=== PATIENT | female | born 1995 | race Caucasian/White ===

== ENCOUNTER 2016-08-26 05:00 | Emergency (ER) | payer OTHER ==
[2016-08-26 05:01] VITALS: BP 119/68; PULSE 78; RESP 18; TEMP 98; O2SAT 98
[2016-08-26] MEDS ORDERED: SODIUM CHLOR 0.9% 1000 ML INJ 1,000 ML IV SCH (05:24)
[2016-08-26] MEDS ORDERED: SODIUM CHLORIDE 0.9% FLUSH 10 ML FLUSH IV FLUSH PRN (05:30)
[2016-08-26] MEDS ORDERED: FAMOTIDINE 20 MG/2 ML VIAL IV PUSH ONE (05:30)
[2016-08-26] MEDS ORDERED: methylPREDNISolone SOD SUCC 125 MG/2 ML VIAL IVP ONE (05:30)
[2016-08-26] MEDS ORDERED: diphenhydrAMINE HCL 50 MG/ML VIAL IVP ONE (05:30)
[2016-08-26] MEDS ORDERED: FLUT1INH7 INH (05:48)
[2016-08-26] MEDS ORDERED: ATEN25TA PO (05:48)
[2016-08-26] MEDS ORDERED: LORA2TAB7 PO (05:48)
[2016-08-26] MEDS ORDERED: [UNRECOGNIZED DRUG - CODE] (05:48)
[2016-08-26] MEDS ORDERED: CLAR10TA2 (05:48)
[2016-08-26] MEDS ORDERED: ONFI10TA PO (05:48)
[2016-08-26] MEDS ORDERED: FERR325C (05:48)
[2016-08-26] MEDS ORDERED: CLON0.5T PO (05:48)
[2016-08-26] MEDS ORDERED: VIMP200T PO (05:48)
[2016-08-26] MEDS ORDERED: EPIN0.3A2 (05:48)
[2016-08-26] MEDS ORDERED: POTA-255 (05:48)
[2016-08-26] MEDS ORDERED: PRIL20TA2 (05:48)
[2016-08-26] MEDS ORDERED: ALBUAER3 INH (05:48)
[2016-08-26 05:53] VITALS: RESP 18; O2SAT 99
--- NOTE | 2016-08-26 06:04 | PD ---
HPI Chief Complaint: Allergic/Adverse Reaction Time Seen by Provider: 05:14 Travel History International Travel<30 days: No Contact w/Intl Traveler<30days: No Traveled to known affect area: No History of Present Illness HPI 21yo F with PMH of seizure disorder on clobazam and vimpat presents to the ED with c/o allergic reaction. Pt states she ate pumpkin seeds about 40 minutes prior to coming and then 30 minutes ago started feeling tingling in her throat and lips as well as hives. 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 States she felt a little better after the epinephrine. Denies any sob, lip or tongue swelling, nausea, vomiting, abdominal pain. Pt states she has chest pain and points to her entire chest but states she always has chest pain. State she thinks she also had seizure while lying in bed 2 hours ago and has history of intractable seizures. PFSH Past Medical History Asthma: Yes Diminished Hearing: No Medical other: Yes (EPILEPSY, CELIAC, HYPOKALEMIA,ANEMIA, POTS, LONG QT) ?: Unknown LMP: UNSURE Social History Alcohol Use: No Tobacco Use: No Substance Use: No Allergies-Medications (Allergen,Severity, Reaction): Coded Allergies: Dilantin (Verified Allergy, Severe, Seizures, 08/26/16) Keppra (Verified Allergy, Severe, Seizures, 08/26/16) Penicillin (Verified Allergy, Severe, Anaphylaxis, 08/26/16) Zofran (Verified Allergy, Severe, Hives, 08/26/16) Reported Meds & Prescriptions Reported Meds & Active Scripts Active Deltasone (Prednisone) 20 Mg Tab 20 Mg PO BID 3 Days Diphenhydramine (Diphenhydramine HCl) 25 Mg Cap 25 Mg PO Q6H PRN 3 Days Epipen 2-Hardik Inj (Epinephrine) 0.3 Mg/0.3 Ml Pfpen 0.3 Mg IM ONCE PRN Reported Epipen (Epinephrine) 0.3 Mg/0.3 Ml Auto.injct Claritin (Loratadine) 10 Mg Tab.rapdis Prilosec (Omeprazole Magnesium) 20 Mg Tab Potassium (Potassium Gluconate) 600 Mg Tablet Iron (Ferrous Sulfate) 325 Mg Capsule.er Breo Ellipta Inh (Fluticasone/Vilanterol) 200-25 Mcg/Act Inh 1 Puff INH DAILY Use daily at the same time. Proair Hfa 8.5 GM Inh (Albuterol Sulfate) 90 Mcg/Act Aer 1 Puff INH Q4H PRN 108 mcg/actuation Atenolol 25 Mg Tab 25 Mg PO BID Midazolam 10 mg/2 ml Syringe (Midazolam HCl/Pf) 10 Mg/2 Ml Syringe Lorazepam 2 Mg Tab 2 Mg PO HS PRN Clonazepam 0.5 Mg Tab 0.5 Mg PO BID Onfi (Clobazam) 10 Mg Tab 5 Mg PO BID Vimpat (Lacosamide) 200 Mg Tab 200 Mg PO BID Review of Systems Except as stated in HPI: all other systems reviewed are Neg Physical Exam Narrative GENERAL: 21yo F not in distress. SKIN: +Scattered urticaria throughout her body. HEAD: Atraumatic. Normocephalic. EYES: Pupils equal and round. No scleral icterus. No injection or drainage. ENT: Throat: Uvula midline. Patent airway. No edema in uvula, tongue or lips. NECK: Trachea midline. No JVD. CARDIOVASCULAR: Regular rate and rhythm. No murmur appreciated. RESPIRATORY: No accessory muscle use. Clear to auscultation. Breath sounds equal bilaterally. GASTROINTESTINAL: Abdomen soft, non-tender, nondistended. MUSCULOSKELETAL: No obvious deformities. No clubbing. No cyanosis. No edema. NEUROLOGICAL: Awake and alert. No obvious cranial nerve deficits. Motor grossly within normal limits. Normal speech. PSYCHIATRIC: Appropriate mood and affect; insight and judgment normal. Data Data Last Documented VS Vital Signs Date Time Temp Pulse Resp B/P Pulse Ox O2 Delivery O2 Flow Rate FiO2 08/26/16 09:11 79 20 118/68 99 08/26/16 05:01 98.0 Room Air Orders Basic Metabolic Panel (Bmp) (08/26/16 05:24) Complete Blood Count With Diff (08/26/16 05:24) Ecg Monitoring (08/26/16 05:24) Iv Access Insert/Monitor (08/26/16 05:24) Oximetry (08/26/16 05:24) Diphenhydramine Inj (Benadryl Inj) (08/26/16 05:30) Methylprednisolone So Succ Inj (Solumedr (08/26/16 05:30) Famotidine Inj (Pepcid Inj) (08/26/16 05:30) Sodium Chlor 0.9% 1000 Ml Inj (Ns 1000 M (08/26/16 05:24) Sodium Chloride 0.9% Flush (Ns Flush) (08/26/16 05:30) Electrocardiogram (08/26/16 ) Chest, Single Ap (08/26/16 ) Ckmb (Isoenzyme) Profile (08/26/16 05:24) Troponin I (08/26/16 05:24) Labs Laboratory Tests Test 08/26/16 05:30 White Blood Count 9.3 TH/MM3 Red Blood Count 4.17 MIL/MM3 Hemoglobin 11.4 GM/DL Hematocrit 34.8 % Mean Corpuscular Volume 83.4 FL Mean Corpuscular Hemoglobin 27.3 PG Mean Corpuscular Hemoglobin 32.8 % Concent Red Cell Distribution Width 13.6 % Platelet Count 210 TH/MM3 Mean Platelet Volume 9.3 FL Neutrophils (%) (Auto) 60.2 % Lymphocytes (%) (Auto) 27.1 % Monocytes (%) (Auto) 9.5 % Eosinophils (%) (Auto) 2.6 % Basophils (%) (Auto) 0.6 % Neutrophils # (Auto) 5.6 TH/MM3 Lymphocytes # (Auto) 2.5 TH/MM3 Monocytes # (Auto) 0.9 TH/MM3 Eosinophils # (Auto) 0.2 TH/MM3 Basophils # (Auto) 0.1 TH/MM3 CBC Comment DIFF FINAL Differential Comment Sodium Level 140 MEQ/L Potassium Level 3.7 MEQ/L Chloride Level 107 MEQ/L Carbon Dioxide Level 24.8 MEQ/L Anion Gap 8 MEQ/L Blood Urea Nitrogen 8 MG/DL Creatinine 0.60 MG/DL Estimat Glomerular Filtration 125 ML/MIN Rate Random Glucose 94 MG/DL Calcium Level 8.6 MG/DL Total Creatine Kinase 85 U/L Troponin I LESS THAN 0.02 NG/ML MDM Medical Decision Making Medical Screen Exam Complete: Yes Emergency Medical Condition: Yes Interpretation(s) EKG: NSR 75bpm. Normal axis. No ST segment elevation or depression. Differential Diagnosis Anaphylaxis vs. electrolyte abnormality vs. atypical chest pain Narrative Course 21yo F here for evaluation of possible anaphylaxis after eating pumpkin seeds today. Pt injected epi pen herself after feeling tingling in her throat and lips. States she feels a little better after. Pt is speaking in complete sentences and has no sob. Pt given NS IVF, diphenhydramine, methylprednisolone and pepcid. Pt states she also had a seizure today and has history of seizure. Labs reviewed, no leukocytosis. CXR showed normal examination. Troponin negative. Chest pain is very atypical. Pt reevaluated at bedside and states she feels a little better. Tingling in throat is minimal. Denies any sob. Will continue to monitor and observe in the ED. Sign out to next team to observe and discharge if no symptoms. Diagnosis Primary Impression: Anaphylaxis Qualified Code: T78.2XXA - Anaphylaxis, initial encounter Patient Instructions: General Instructions Departure Forms: Tests/Procedures Additional Instructions: Please follow up with your PMD in 1-2 days. Return to the ED if symptoms worsen. Med/Other Pt SpecificInfo: Prescription(s) given Scripts Prednisone (Deltasone)20 Mg Tab20 Mg PO BID 3 Days Ref 0 Prov:Aurelia Caal DO 08/26/16 Diphenhydramine 25 Mg Cap25 Mg PO Q6H PRN (ALLERGIES) 3 Days Ref 0 Prov:Aurelia Caal DO 08/26/16 Epinephrine Inj (Epipen 2-Hardik Inj)0.3 Mg/0.3 Ml Pfpen0.3 Mg IM ONCE PRN ( ALLERGIC REACTION) #1 PACK Ref 0 Prov:Aurelia Caal DO 08/26/16 Disposition: 01 DISCHARGE HOME Condition: Stable Aurelia Caal DO Aug 26, 2016 06:04
--- NOTE | 2016-08-26 06:09 | RADRPT ---
EXAM DATE/TIME: 08/26/2016 05:37 [facility] COMPARISON: No previous studies available for comparison. INDICATIONS : Chest pain. MEDICAL HISTORY : asthma, seizures SURGICAL HISTORY : None. ENCOUNTER: Initial ACUITY: 1 day PAIN SCORE: 4/10 LOCATION: Bilateral chest FINDINGS: A single view of the chest demonstrates the lungs to be symmetrically aerated without evidence of mas s, infiltrate or effusion. The cardiomediastinal contours are unremarkable. Osseous structures are intact. CONCLUSION: Normal examination. Mild rightward lower thoracic scoliosis. Oscar Thomas MD on August 26, 2016 at 6:07 Board Certified Radiologist. This report was verified electronically.
[2016-08-26 06:13] LABS: AUTOMATED NEUTROPHIL # 5.6 TH/MM3 (1.8-7.7); BASOPHIL # 0.1 TH/MM3 (0-0.2); BASOPHIL % 0.6 % (0.0-2.0); EOSINOPHIL # 0.2 TH/MM3 (0-0.4); EOSINOPHIL % 2.6 % (0.0-4.0); HEMATOCRIT 34.8 % (35.0-46.0); HEMO FLAGS DIFF FINAL; LYMPH % 27.1 % (9.0-44.0); LYMPHOCYTE # 2.5 TH/MM3 (1.0-4.8); MEAN CELL VOLUME 83.4 FL (80.0-100.0); MEAN CORPUSCULAR HEMOGLOBIN 27.3 PG (27.0-34.0); MEAN CORPUSCULAR HGB CONC 32.8 % (32.0-36.0); MONO % 9.5 % (0.0-8.0); NEUT % 60.2 % (16.0-70.0); PLATELET COUNT 210 TH/MM3 (150-450); RED BLOOD COUNT 4.17 MIL/MM3 (4.00-5.30); RED CELL DISTRIBUTION WIDTH 13.6 % (11.6-17.2); WHITE BLOOD COUNT 9.3 TH/MM3 (4.0-11.0)
[2016-08-26] MEDS ORDERED: PRED-503 PO (06:32)
[2016-08-26] MEDS ORDERED: DIPH25CA PO (06:32)
[2016-08-26] MEDS ORDERED: EPIP0.3I IM (06:32)
[2016-08-26 06:39] LABS: ANION GAP 8 MEQ/L (5-15); BICARBONATE 24.8 MEQ/L (21.0-32.0); BLOOD UREA NITROGEN 8 MG/DL (7-18); CHLORIDE 107 MEQ/L (98-107); GLOMERULAR FILTRATION RATE 125 ML/MIN (>89); POTASSIUM 3.7 MEQ/L (3.5-5.1); SODIUM (NA) 140 MEQ/L (136-145)
[2016-08-26 06:44] LABS: CREATINE KINASE 85 U/L (26-192)
--- NOTE | 2016-08-26 07:20 | PD ---
Data Data Last Documented VS Vital Signs Date Time Temp Pulse Resp B/P Pulse Ox O2 Delivery O2 Flow Rate FiO2 08/26/16 05:53 18 99 08/26/16 05:01 98.0 78 119/68 Room Air Orders Basic Metabolic Panel (Bmp) (08/26/16 05:24) Complete Blood Count With Diff (08/26/16 05:24) Ecg Monitoring (08/26/16 05:24) Iv Access Insert/Monitor (08/26/16 05:24) Oximetry (08/26/16 05:24) Diphenhydramine Inj (Benadryl Inj) (08/26/16 05:30) Methylprednisolone So Succ Inj (Solumedr (08/26/16 05:30) Famotidine Inj (Pepcid Inj) (08/26/16 05:30) Sodium Chlor 0.9% 1000 Ml Inj (Ns 1000 M (08/26/16 05:24) Sodium Chloride 0.9% Flush (Ns Flush) (08/26/16 05:30) Electrocardiogram (08/26/16 ) Chest, Single Ap (08/26/16 ) Ckmb (Isoenzyme) Profile (08/26/16 05:24) Troponin I (08/26/16 05:24) Labs Laboratory Tests Test 08/26/16 05:30 White Blood Count 9.3 TH/MM3 Red Blood Count 4.17 MIL/MM3 Hemoglobin 11.4 GM/DL Hematocrit 34.8 % Mean Corpuscular Volume 83.4 FL Mean Corpuscular Hemoglobin 27.3 PG Mean Corpuscular Hemoglobin 32.8 % Concent Red Cell Distribution Width 13.6 % Platelet Count 210 TH/MM3 Mean Platelet Volume 9.3 FL Neutrophils (%) (Auto) 60.2 % Lymphocytes (%) (Auto) 27.1 % Monocytes (%) (Auto) 9.5 % Eosinophils (%) (Auto) 2.6 % Basophils (%) (Auto) 0.6 % Neutrophils # (Auto) 5.6 TH/MM3 Lymphocytes # (Auto) 2.5 TH/MM3 Monocytes # (Auto) 0.9 TH/MM3 Eosinophils # (Auto) 0.2 TH/MM3 Basophils # (Auto) 0.1 TH/MM3 CBC Comment DIFF FINAL Differential Comment Sodium Level 140 MEQ/L Potassium Level 3.7 MEQ/L Chloride Level 107 MEQ/L Carbon Dioxide Level 24.8 MEQ/L Anion Gap 8 MEQ/L Blood Urea Nitrogen 8 MG/DL Creatinine 0.60 MG/DL Estimat Glomerular Filtration 125 ML/MIN Rate Random Glucose 94 MG/DL Calcium Level 8.6 MG/DL Total Creatine Kinase 85 U/L Troponin I LESS THAN 0.02 NG/ML MDM Supervised Visit with DIMAS: Yes Narrative Course 21-year-old woman with a history of intractable seizure disorder, seizures nearly daily, as well as anaphylaxis, presents to the emergency department after developing allergic reaction. She gave herself her EpiPen. She's been the ER about 2 hours now. She was signed out to me for repeat assessment. At this point she has no symptoms, no fullness in her throat, difficulty swallowing , breathing difficulties. She sleeping comfortably in her room. Patient will be observed for another 2 hours, and then discharge with prescriptions for steroids and antihistamines. Diagnosis Primary Impression: Anaphylaxis Qualified Code: T78.2XXA - Anaphylaxis, initial encounter Patient Instructions: General Instructions Departure Forms: Tests/Procedures Additional Instruction: Please follow up with your PMD in 1-2 days. Return to the ED if symptoms worsen. Scripts Prednisone (Deltasone)20 Mg Tab20 Mg PO BID 3 Days Ref 0 Prov:Aurelia Caal DO 08/26/16 Diphenhydramine 25 Mg Cap25 Mg PO Q6H PRN (ALLERGIES) 3 Days Ref 0 Prov:Aurelia Caal DO 08/26/16 Epinephrine Inj (Epipen 2-Hardik Inj)0.3 Mg/0.3 Ml Pfpen0.3 Mg IM ONCE PRN ( ALLERGIC REACTION) #1 PACK Ref 0 Prov:Aurelia Caal DO 08/26/16 Disposition: 01 DISCHARGE HOME Condition: Stable Oscar Salazar MD Aug 26, 2016 07:20
[2016-08-26 09:11] VITALS: BP 118/68
--- NOTE | 2016-08-26 14:00 | EKG ---
Date Performed: 08/26/2016 Time Performed: 05:58:19 PTAGE: 21 years EKG: Sinus rhythm NORMAL ECG NO PREVIOUS TRACING DOCTOR: Oniel Weiner Interpretating Date/Time 08/26/2016 13:56:30
== END 2016-08-26 09:37 | disposition home or self-care (01) ==
LOC: NEPC 05:00
DX: T78.2XXA Anaphylactic shock, unspecified, initial encounter (principal); G40.909 Epilepsy, unspecified, not intractable, without status epilepticus; J45.909 Unspecified asthma, uncomplicated; R07.9 Chest pain, unspecified; Z79.899 Other long term (current) drug therapy
CPT/HCPCS: 71010; 80048; 82550; 84484; 85025; 93005; 96374; 96375; 99285; J1200; J2930; J7030

== ENCOUNTER 2016-08-27 17:53 | Inpatient (IN) | payer OTHER ==
[~2016-08-27] VITALS: Ht 160 cm; Wt 54.4 kg
[~2016-08-27 17:53] MED LIST: ALBUAER3 INH; ATEN25TA PO; CLAR10TA2; CLON0.5T PO; DIPH25CA PO; EPIN0.3A2; EPIP0.3I IM; FERR325C; FLUT1INH7 INH; LORA2TAB7 PO; ONFI10TA PO; POTA-255; PRED-503 PO; PRIL20TA2; VIMP200T PO; [UNRECOGNIZED DRUG - CODE]
[2016-08-27 18:06] VITALS: BP 110/69; PULSE 101; RESP 14; TEMP 97.6
--- NOTE | 2016-08-27 18:09 | PD ---
HPI Chief Complaint: Possible Seizure Time Seen by Provider: 18:09 Travel History International Travel<30 days: No Contact w/Intl Traveler<30days: No Traveled to known affect area: No History of Present Illness HPI 21-year-old female presents emergency Department with history of seizure disorder and recent anaphylaxis, seen yesterday and treated with prednisone and Benadryl, and refill of EpiPen. [place]. Patient takes clonazepam and lorazepam for her seizures. Is reportedly allergic to Keppra and Dilantin. Patient recently moved here from [place] 3 days ago. Patient has no local primary care physician or neurologist at this time. Is reported by her significant other that they are attempting to get established in [place]. Patient is nonverbal upon arrival and appears to have seizure activity with eye rolling and generalized stiffness. Patient was brought in collared and on a board. Patient is cleared from the backboard with nursing staff upon arrival. IV is in place in the left arm. Patient is allergic to Dilantin, Keppra, penicillin, and Zofran. PFSH Past Medical History Asthma: Yes Diminished Hearing: No Social History Alcohol Use: No Tobacco Use: No Substance Use: No Allergies-Medications (Allergen,Severity, Reaction): Coded Allergies: Dilantin (Verified Allergy, Severe, Seizures, 08/26/16) Keppra (Verified Allergy, Severe, Seizures, 08/26/16) Penicillin (Verified Allergy, Severe, Anaphylaxis, 08/26/16) Zofran (Verified Allergy, Severe, Hives, 08/26/16) Reported Meds & Prescriptions Reported Meds & Active Scripts Active Deltasone (Prednisone) 20 Mg Tab 20 Mg PO BID 3 Days Diphenhydramine (Diphenhydramine HCl) 25 Mg Cap 25 Mg PO Q6H PRN 3 Days Epipen 2-Hardik Inj (Epinephrine) 0.3 Mg/0.3 Ml Pfpen 0.3 Mg IM ONCE PRN Reported Epipen (Epinephrine) 0.3 Mg/0.3 Ml Auto.injct Claritin (Loratadine) 10 Mg Tab.rapdis Prilosec (Omeprazole Magnesium) 20 Mg Tab Potassium (Potassium Gluconate) 600 Mg Tablet Iron (Ferrous Sulfate) 325 Mg Capsule.er Breo Ellipta Inh (Fluticasone/Vilanterol) 200-25 Mcg/Act Inh 1 Puff INH DAILY Use daily at the same time. Proair Hfa 8.5 GM Inh (Albuterol Sulfate) 90 Mcg/Act Aer 1 Puff INH Q4H PRN 108 mcg/actuation Atenolol 25 Mg Tab 25 Mg PO BID Midazolam 10 mg/2 ml Syringe (Midazolam HCl/Pf) 10 Mg/2 Ml Syringe Lorazepam 2 Mg Tab 2 Mg PO HS PRN Clonazepam 0.5 Mg Tab 0.5 Mg PO BID Onfi (Clobazam) 10 Mg Tab 5 Mg PO BID Vimpat (Lacosamide) 200 Mg Tab 200 Mg PO BID Review of Systems ROS Limitations: Unresponsive General / Constitutional: No: Fever Eyes: No: Visual changes HENT: No: Headaches Cardiovascular: No: Chest Pain or Discomfort Respiratory: No: Shortness of Breath Gastrointestinal: No: Abdominal Pain Genitourinary: No: Dysuria Musculoskeletal: No: Pain Skin: No Rash Neurologic: No: Weakness Psychiatric: No: Depression Endocrine: No: Polydipsia Hematologic/Lymphatic: No: Easy Bruising Physical Exam Exam Limitations: Clinical Condition Narrative GENERAL: Patient appears to have mild seizure-like activity with eye jerking, what appears to be shivering, and generalized muscle stiffness. SKIN: Warm and dry. HEAD: Atraumatic. Normocephalic. No signs of trauma. EYES: Pupils equal and round. No scleral icterus. No injection or drainage. ENT: No nasal bleeding or discharge. Mucous membranes pink and moist. NECK: Trachea midline. No JVD. CARDIOVASCULAR: Regular rate and rhythm. RESPIRATORY: No accessory muscle use. Clear to auscultation. Breath sounds equal bilaterally. GASTROINTESTINAL: Abdomen soft, non-tender, nondistended. Hepatic and splenic margins not palpable. MUSCULOSKELETAL: Extremities without clubbing, cyanosis, or edema. No obvious deformities. NEUROLOGICAL: Awake and alert. No obvious cranial nerve deficits. Motor grossly within normal limits. Five out of 5 muscle strength in the arms and legs. Data Data Last Documented VS Vital Signs Date Time Temp Pulse Resp B/P Pulse Ox O2 Delivery O2 Flow Rate FiO2 08/27/16 19:40 88 16 150/54 97 Room Air 08/27/16 18:06 97.6 Orders Lorazepam Inj (Ativan Inj) (08/27/16 18:15) Complete Blood Count With Diff (08/27/16 18:18) Comprehensive Metabolic Panel (08/27/16 18:18) Iv Access Insert/Monitor (08/27/16 18:18) Ecg Monitoring (08/27/16 18:18) Oximetry (08/27/16 18:18) Sodium Chloride 0.9% Flush (Ns Flush) (08/27/16 18:30) Lacosamide Inj (Vimpat Inj) (08/27/16 19:00) Lorazepam Inj (Ativan Inj) (08/27/16 19:00) Lorazepam Inj (Ativan Inj) (08/27/16 20:15) Potassium Chlor 20 Meq Premix (Kcl 20 Me (08/27/16 20:15) Ct Brain W/O Iv Contrast(Rout) (08/27/16 21:08) Ct Cerv Spine W/O Contrast (08/27/16 21:08) Creatine Kinase (Cpk) (08/27/16 21:08) Sodium Chlor 0.9% 1000 Ml Inj (Ns 1000 M (08/27/16 22:15) Admit Order (Ed Use Only) (08/27/16 22:39) Consult Neurology (08/27/16 ) Labs Laboratory Tests Test 08/27/16 18:20 White Blood Count 11.1 TH/MM3 Red Blood Count 4.09 MIL/MM3 Hemoglobin 11.3 GM/DL Hematocrit 34.1 % Mean Corpuscular Volume 83.6 FL Mean Corpuscular Hemoglobin 27.7 PG Mean Corpuscular Hemoglobin 33.2 % Concent Red Cell Distribution Width 14.3 % Platelet Count 192 TH/MM3 Mean Platelet Volume 9.9 FL Neutrophils (%) (Auto) 82.3 % Lymphocytes (%) (Auto) 9.6 % Monocytes (%) (Auto) 7.9 % Eosinophils (%) (Auto) 0.1 % Basophils (%) (Auto) 0.1 % Neutrophils # (Auto) 9.2 TH/MM3 Lymphocytes # (Auto) 1.1 TH/MM3 Monocytes # (Auto) 0.9 TH/MM3 Eosinophils # (Auto) 0.0 TH/MM3 Basophils # (Auto) 0.0 TH/MM3 CBC Comment DIFF FINAL Differential Comment Sodium Level 142 MEQ/L Potassium Level 3.0 MEQ/L Chloride Level 107 MEQ/L Carbon Dioxide Level 21.9 MEQ/L Anion Gap 13 MEQ/L Blood Urea Nitrogen 10 MG/DL Creatinine 0.71 MG/DL Estimat Glomerular Filtration 103 ML/MIN Rate Random Glucose 102 MG/DL Calcium Level 8.7 MG/DL Total Bilirubin 0.2 MG/DL Aspartate Amino Transf 17 U/L (AST/SGOT) Alanine Aminotransferase 18 U/L (ALT/SGPT) Alkaline Phosphatase 69 U/L Total Creatine Kinase 90 U/L Total Protein 6.9 GM/DL Albumin 3.9 GM/DL [facility] Medical Decision Making Medical Screen Exam Complete: Yes Emergency Medical Condition: Yes Medical Record Reviewed: Yes Differential Diagnosis Seizure. Altered mental status. Pseudoseizure. Hypokalemia. Electrolyte imbalance. Narrative Course Patient is medically stable upon arrival. Labs ordered including CBC, CMP. Patient is given lorazepam 1 mg IV. At 1900 hrs. patient is reassessed and found to be possibly continued to seize. Patient discussed and seen by Dr. Whittaker. Patient is given Vimpat 150mg IV in addition to one more milligram lorazepam IV. Patient is monitored and continues to have focal seizure activity. Patient is given an additional 2 mg of lorazepam IV, 2110 hrs. patient is reassessed and found to be not seizing, but appears postictal. She will answer simple yes and no questions. Patient is discussed with Dr. Choe, who recommends CT of the head and neck and adding a CPK to her lab work. CPK is 90. CT of the brain and neck are within normal limits per radiologist. 2235 hrs. call was placed to the hospitalist for admission. Patient was discussed with Dr. Covington, who agreed to admit the patient. Call was also placed to Dr. Zamarripa, the neurologist on-call the patient was discussed who recommended Vimpat 100 mg 3 times a day. A consultation was placed for Dr. Zamarripa. Diagnosis Primary Impression: Seizure disorder Additional Impression: Status epilepticus Admitting Information Admitting Physician Requests: Observation Condition: Stable Jorge Pop Aug 27, 2016 18:09
[2016-08-27 18:15] VITALS: O2SAT 98
[2016-08-27] MEDS ORDERED: LORazepam 2 MG/ML VIAL IV PUSH ONE ×3 (18:15→20:15)
[2016-08-27] MEDS ORDERED: SODIUM CHLORIDE 0.9% FLUSH 10 ML FLUSH IV FLUSH PRN ×2 (18:30→23:00)
[2016-08-27] MEDS ORDERED: LACOSAMIDE INJ 150 MG in SODIUM CHLORIDE 0.9% INJ 100 ML IV ONE (19:00)
[2016-08-27 19:40] VITALS: BP 150/54; PULSE 88; RESP 16; O2SAT 97
[2016-08-27 19:56] LABS: AUTOMATED NEUTROPHIL # 9.2 TH/MM3 (1.8-7.7); BASOPHIL % 0.1 % (0.0-2.0); EOSINOPHIL % 0.1 % (0.0-4.0); HEMATOCRIT 34.1 % (35.0-46.0); HEMO FLAGS DIFF FINAL; LYMPH % 9.6 % (9.0-44.0); LYMPHOCYTE # 1.1 TH/MM3 (1.0-4.8); MEAN CELL VOLUME 83.6 FL (80.0-100.0); MEAN CORPUSCULAR HEMOGLOBIN 27.7 PG (27.0-34.0); MEAN CORPUSCULAR HGB CONC 33.2 % (32.0-36.0); MONO % 7.9 % (0.0-8.0); NEUT % 82.3 % (16.0-70.0); PLATELET COUNT 192 TH/MM3 (150-450); RED BLOOD COUNT 4.09 MIL/MM3 (4.00-5.30); RED CELL DISTRIBUTION WIDTH 14.3 % (11.6-17.2); WHITE BLOOD COUNT 11.1 TH/MM3 (4.0-11.0)
[2016-08-27 20:06] LABS: ANION GAP 13 MEQ/L (5-15); AST (GOT) 17 U/L (15-37); BICARBONATE 21.9 MEQ/L (21.0-32.0); BLOOD UREA NITROGEN 10 MG/DL (7-18); CHLORIDE 107 MEQ/L (98-107); GLOMERULAR FILTRATION RATE 103 ML/MIN (>89); SODIUM (NA) 142 MEQ/L (136-145)
[2016-08-27 20:08] LABS: ALT (GPT) 18 U/L (10-53)
[2016-08-27 20:10] LABS: ALKALINE PHOSPHATASE 69 U/L (45-117); TOTAL BILIRUBIN ADULT 0.2 MG/DL (0.2-1.0)
[2016-08-27] MEDS ORDERED: POTASSIUM CHLOR 20 MEQ PREMIX 100 ML IV ONE (20:15)
--- NOTE | 2016-08-27 21:48 | RADRPT ---
EXAM DATE/TIME: 08/27/2016 21:39 [facility] COMPARISON: No previous studies available for comparison. INDICATIONS : Altered mental status; possible seizure. RADIATION DOSE: 56.35 CTDIvol (mGy) MEDICAL HISTORY : None SURGICAL HISTORY : None. ENCOUNTER: Initial ACUITY: 1 day PAIN SCALE: Non-responsive LOCATION: cranial TECHNIQUE: Multiple contiguous axial images were obtained of the head. Using automated exposure control and adj ustment of the mA and/or kV according to patient size, radiation dose was kept as low as reasonably a chievable to obtain optimal diagnostic quality images. FINDINGS: CEREBRUM: The ventricles are normal for age. No evidence of midline shift, mass lesion, hemorrhage or acute in farction. No extra-axial fluid collections are seen. POSTERIOR FOSSA: The cerebellum and brainstem are intact. The 4th ventricle is midline. The cerebellopontine angle i s unremarkable. EXTRACRANIAL: The visualized portion of the orbits is intact. SKULL: The calvaria is intact. No evidence of skull fracture. CONCLUSION: Normal examination for a patient of this age. Richy Williamson MD on August 27, 2016 at 21:46 Board Certified Radiologist. This report was verified electronically.
[2016-08-27] MEDS ORDERED: SODIUM CHLOR 0.9% 1000 ML INJ 1,000 ML IV ONE (22:15)
--- NOTE | 2016-08-27 22:25 | RADRPT ---
EXAM DATE/TIME: 08/27/2016 21:43 [facility] COMPARISON: No previous studies available for comparison. INDICATIONS : Trauma, fall from seizure. RADIATION DOSE: 32.55 CTDIvol (mGy) MEDICAL HISTORY : None SURGICAL HISTORY : None. ENCOUNTER: Initial ACUITY: 1 day PAIN SCALE: Non-responsive LOCATION: neck TECHNIQUE: Volumetric scanning of the cervical spine was performed. Multiplanar reconstructions in the sagittal, coronal and oblique axial planes were performed. Using automated exposure control and adjustment o f the mA and/or kV according to patient size, radiation dose was kept as low as reasonably achievable to obtain optimal diagnostic quality images. FINDINGS: VERTEBRAE: Normal vertebral body height. ALIGNMENT: No evidence of subluxation. C2-C3: The bony spinal canal is normal in size. No evidence of disc bulge or herniation. The neural forami na are bilaterally patent. C3-C4: The bony spinal canal is normal in size. No evidence of disc bulge or herniation. The neural forami na are bilaterally patent. C4-C5: The bony spinal canal is normal in size. No evidence of disc bulge or herniation. The neural forami na are bilaterally patent. C5-C6: The bony spinal canal is normal in size. No evidence of disc bulge or herniation. The neural forami na are bilaterally patent. C6-C7: The bony spinal canal is normal in size. No evidence of disc bulge or herniation. The neural forami na are bilaterally patent. C7-T1: The bony spinal canal is normal in size. No evidence of disc bulge or herniation. The neural forami na are bilaterally patent. CONCLUSION: Normal examination for a patient of this age. Richy Williamson MD on August 27, 2016 at 22:22 Board Certified Radiologist. This report was verified electronically.
--- NOTE | 2016-08-27 22:58 | HHI.HP ---
[facility] Service [facility] Primary Care Physician No Primary Care Physician Admission Diagnosis Breakthrough Seizure Diagnoses: (1) Seizure disorder Diagnosis: Principal (2) Status epilepticus Diagnosis: Principal (3) Anaphylaxis Diagnosis: Principal (4) Hypokalemia Diagnosis: Principal Travel History International Travel<30 Days: No Contact w/Intl Traveler <30 Da: No Traveled to Known Affected Are: No History of Present Illness This is a 21-year-old female with a PMH of Seizure Disorder and h/o Anaphylaxis for which she carries EpiPen who was brought to the ER EMS secondary to witnessed seizure activity. [place] and had acute onset of seizure activity w/generalized tonic-clonic movements. Upon arrival, patient noted to have ongoing seizure activity for approximately 2 hours while in ER, s/p Ativan 4mg IV and Vimpat 150mg IV x1 dose. Currently seizure free however significant post-ictal state. Of note, pt presented to ER on 08/26/16 for apparent allergic reaction after eating pumpkin seeds, used her EpiPen, s/p eval in ER w/ no further progression of symptoms, d/c'd home w/ Prednisone 20mg bid x3 days, Benadryl and EpiPen, unclear if taking medications. Pt unable to provide any history in light of postictal state. CT Head normal. CT C-spine also normal. CXR with no acute findings. Labs essentially unremarkable except for K+ 3.0 s/p replacement. Dr. Zamarripa consulted by ER physician, recommended Vimpat Review of Systems ROS: Unable to obtain secondary to postictal state. Past Family Social History Past Medical History PMH: Seizure Disorder and h/o Anaphylaxis Past Surgical History PAST SURGICAL HISTORY: None Allergies: Coded Allergies: Dilantin (Verified Allergy, Severe, Seizures, 08/26/16) Keppra (Verified Allergy, Severe, Seizures, 08/26/16) Penicillin (Verified Allergy, Severe, Anaphylaxis, 08/26/16) Zofran (Verified Allergy, Severe, Hives, 08/26/16) Family History PAST FAMILY HISTORY: Reviewed. No h/o DM or CAD Social History PAST SOCIAL HISTORY: Negative for alcohol, tobacco or drugs. Physical Exam Vital Signs Vital Signs Date Time Temp Pulse Resp B/P Pulse Ox O2 Delivery O2 Flow Rate FiO2 08/27/16 19:40 88 16 150/54 97 Room Air 08/27/16 18:15 98 Room Air 08/27/16 18:06 97.6 101 14 110/69 Physical Exam PE: GENERAL: Young white female, postictal, minimally arousable, however protecting airway. HEENT: PERRLA, EOMI. No scleral icterus or conjunctival pallor. No lid lag or facial droop. CARDIOVASCULAR: Regular rate and rhythm. No obvious murmurs to auscultation. No chest tenderness to palpation. RESPIRATORY: No obvious rhonchi or wheezing. Clear to auscultation. Breath sounds equal bilaterally. GASTROINTESTINAL: Abdomen soft, non-tender, nondistended. BS normal. MUSCULOSKELETAL: Extremities without clubbing, cyanosis, or edema. No obvious deformities. NEUROLOGICAL: Postictal. No focal neurologic deficits. Moving both upper and lower extremities spontaneously. Laboratory Laboratory Tests Test 08/27/16 18:20 White Blood Count 11.1 Red Blood Count 4.09 Hemoglobin 11.3 Hematocrit 34.1 Mean Corpuscular Volume 83.6 Mean Corpuscular Hemoglobin 27.7 Mean Corpuscular Hemoglobin 33.2 Concent Red Cell Distribution Width 14.3 Platelet Count 192 Mean Platelet Volume 9.9 Neutrophils (%) (Auto) 82.3 Lymphocytes (%) (Auto) 9.6 Monocytes (%) (Auto) 7.9 Eosinophils (%) (Auto) 0.1 Basophils (%) (Auto) 0.1 Neutrophils # (Auto) 9.2 Lymphocytes # (Auto) 1.1 Monocytes # (Auto) 0.9 Eosinophils # (Auto) 0.0 Basophils # (Auto) 0.0 CBC Comment DIFF FINAL Differential Comment Sodium Level 142 Potassium Level 3.0 Chloride Level 107 Carbon Dioxide Level 21.9 Anion Gap 13 Blood Urea Nitrogen 10 Creatinine 0.71 Estimat Glomerular Filtration 103 Rate Random Glucose 102 Calcium Level 8.7 Total Bilirubin 0.2 Aspartate Amino Transf 17 (AST/SGOT) Alanine Aminotransferase 18 (ALT/SGPT) Alkaline Phosphatase 69 Total Creatine Kinase 90 Total Protein 6.9 Albumin 3.9 Result Diagram: 08/27/16181908/27/161819 Assessment and Plan Problem List: (1) Seizure disorder ICD Code: G40.909 Status: Acute (2) Status epilepticus ICD Code: G40.901 Status: Acute (3) Hypokalemia ICD Code: E87.6 Status: Acute (4) Anaphylaxis ICD Code: T78.2XXA Status: Acute Assessment and Plan A/P: 1. Seizure Disorder: per report, pt recently moved to the area from [place], attempting to establish w/ Neurologist in [place]. Unclear if compliant w / medications. Multiple allergies to anticonvulsant medications. 2. Status Epilepticus: episode of seizure activity while in ER for approx 2hrs , s/p Ativan 4mg IV total and Vimpat 150mg IV x1, now controlled. Prolonged post-ictal state, minimally arousable at this time. In light of status and current state, will admit to ICU for close monitoring. Neuro Checks q2h. CT Head/C-Spine w/ no acute findings, images reviewed by me. Dr. Zamarripa consulted by ER physician, recommended Vimpat 100mg tid. Seizure Precautions, Ativan prn. IVF for hydration. Check U/a, Urine Drug Screen. 3. Hypokalemia: K+ 3.0, s/p replacement in ER, will recheck and replace if needed. 4. Anaphylaxis: Recent ER presentation 08/26/16 after eating Pumpkin Seeds, used her EpiPen, d/c'd from ER w/ Prednisone taper and Benadryl. No evidence of recurrent allergic reaction. 5. DVT Prophylaxis: SCD/Teds. 6. Social work for d/c planning as needed. 7. Case discussed w/ ER physician at length Physician Certification 2 Midnight Certification Type: Admission for Inpatient Services Order for Inpatient Services The services are ordered in accordance with Medicare regulations or non- Medicare payer requirements, as applicable. In the case of services not specified as inpatient-only, they are appropriately provided as inpatient services in accordance with the 2-midnight benchmark. Estimated LOS (days): 2 days is the estimated time the patient will need to remain in the hospital, assuming treatment plan goals are met and no additional complications. Post-Hospital Plan: Not yet determined Shanell Romero MD Aug 27, 2016 22:58
[2016-08-27] MEDS ORDERED: LACTULOSE SYRUP 20 GM/30 ML CUP PO PRN (23:00)
[2016-08-27] MEDS ORDERED: MISCELLANEOUS NURSING INFORMATION XX SCH (23:00)
[2016-08-27] MEDS ORDERED: CHLORHEXIDINE GLUCONATE 2 % 1 PACK (2 CLOTHS) TOP PRN (23:00)
[2016-08-27] MEDS ORDERED: MAGNESIUM HYDROXIDE SUSP 30 ML CUP PO PRN (23:00)
[2016-08-27] MEDS ORDERED: SENNOSIDES 8.6 MG TAB PO PRN (23:00)
[2016-08-27] MEDS ORDERED: BISACODYL 10 MG SUPP RECTAL PRN (23:00)
[2016-08-28] VITALS (12 sets, daily range): BP systolic 94–107; BP diastolic 53–63; PULSE 59–111; RESP 18–39; TEMP 97.3–99.4; O2SAT 95–100
[2016-08-28] MEDS: SODIUM CHLOR 0.9% 1000 ML INJ 1,000 ML IV SCH ×3 (01:23→22:26)
[2016-08-28] MEDS: LORazepam 2 MG/ML VIAL IV PUSH PRN ×3 (01:24→20:10)
[2016-08-28] MEDS: CHLORHEXIDINE GLUCONATE 2 % 1 PACK (2 CLOTHS) TOP SCH (04:00)
[2016-08-28] MEDS: LACOSAMIDE INJ 100 MG in SODIUM CHLORIDE 0.9% INJ 100 ML IV SCH ×2 (06:09→12:38)
[2016-08-28 06:52] LABS: BACTERIA, URINE RARE /hpf; BLOOD, URINE NEG (NEG); COMMENT (UR) CULT NOT INDICATED; CULTURE IF INDICATED CULT NOT INDICATED; GLUCOSE,URINE NEG (NEG); KETONE, URINE NEG (NEG); MUCUS URINE FEW /lpf (OCC); NITRITE,URINE NEG (NEG); PH, URINE 6.5 (5.0-8.5); SQUAMOUS EPITHELIAL CELL URINE 3 /hpf (0-5); TRANSITIONAL EPI CELLS, URINE <1 /hpf; URINE COLOR YELLOW (YELLW/STRAW)
[2016-08-28 06:56] LABS: AMPHETAMINE, URINE NEG (NEG); BARBITURATES, URINE NEG (NEG); COCAINE, URINE NEG (NEG)
[2016-08-28 07:51] LABS: AUTOMATED NEUTROPHIL # 4.3 TH/MM3 (1.8-7.7); BASOPHIL % 0.4 % (0.0-2.0); EOSINOPHIL # 0.1 TH/MM3 (0-0.4); EOSINOPHIL % 1.1 % (0.0-4.0); HEMATOCRIT 31.7 % (35.0-46.0); HEMO FLAGS DIFF FINAL; LYMPH % 31.5 % (9.0-44.0); LYMPHOCYTE # 2.4 TH/MM3 (1.0-4.8); MEAN CELL VOLUME 83.6 FL (80.0-100.0); MEAN CORPUSCULAR HGB CONC 33.5 % (32.0-36.0); MONO % 9.3 % (0.0-8.0); NEUT % 57.7 % (16.0-70.0); PLATELET COUNT 161 TH/MM3 (150-450); RED BLOOD COUNT 3.79 MIL/MM3 (4.00-5.30); RED CELL DISTRIBUTION WIDTH 13.9 % (11.6-17.2); WHITE BLOOD COUNT 7.5 TH/MM3 (4.0-11.0)
[2016-08-28] MEDS: DOCUSATE SODIUM 50 MG/SENNA 8.6 MG TAB PO SCH ×2 (08:19→21:00)
[2016-08-28] MEDS: SODIUM CHLORIDE 0.9% FLUSH 10 ML FLUSH IV FLUSH SCH ×2 (08:20→20:03)
--- NOTE | 2016-08-28 08:44 | HHI.PR ---
Subjective Remarks Follow-up for acute seizure activities. Patient is somewhat lethargic this morning. However she wakes up on verbal commands and answers appropriately. Per nursing staff, patient had another episode of seizure activity around 139 morning requiring IV lorazepam. At the time of this interview, patient denies any chest pain, shortness of breath, fever or chills. She does not feel hungry. Objective Vitals Vital Signs Date Time Temp Pulse Resp B/P Pulse Ox O2 Delivery O2 Flow Rate FiO2 08/28/16 06:00 72 08/28/16 04:00 70 08/28/16 04:00 98.2 70 20 95/53 98 08/28/16 02:00 103 08/28/16 01:02 70 18 103/63 100 Room Air 08/27/16 19:40 88 16 150/54 97 Room Air 08/27/16 18:15 98 Room Air 08/27/16 18:06 97.6 101 14 110/69 I/O 08/27/16 08/27/16 08/27/16 08/28/16 08/28/16 08/28/16 07:00 15:00 23:00 07:00 15:00 23:00 Intake Total 496 ml Output Total 285 ml Balance 211 ml Intake Oral 0 ml IV Total 496 ml Output Urine Total 285 ml # Bowel Movements 0 Result Diagram: 08/28/1630 08/27/16 1820 Imaging Last Impressions Head CT 08/27/162107 Signed Impressions: Service Date/Time: Saturday, August 27, 2016 21:39 - CONCLUSION: Normal examination for a patient of this age. Richy Williamson MD Cervical Spine CT 08/27/162107 Signed Impressions: Service Date/Time: Saturday, August 27, 2016 21:43 - CONCLUSION: Normal examination for a patient of this age. Richy Williamson MD Objective Remarks GENERAL: Alert, oriented to person only. Follows commands appropriately. SKIN: Warm and dry. HEAD: Normocephalic. EYES: No scleral icterus. No injection or drainage. NECK: Supple, trachea midline. No JVD or lymphadenopathy. CARDIOVASCULAR: Regular rate and rhythm without murmurs, gallops, or rubs. RESPIRATORY: Breath sounds equal bilaterally. No accessory muscle use. GASTROINTESTINAL: Abdomen soft, non-tender, nondistended. MUSCULOSKELETAL: No cyanosis, or edema. BACK: Nontender without obvious deformity. No CVA tenderness. Procedures None A/P Problem List: (1) Seizure disorder ICD Code: G40.909 Status: Acute (2) Status epilepticus ICD Code: G40.901 Status: Acute (3) Hypokalemia ICD Code: E87.6 Status: Acute (4) Anaphylaxis ICD Code: T78.2XXA Status: Acute Assessment and Plan Ms. Oneill is a 21-year-old female with a PMH of Seizure Disorder and h/o Anaphylaxis for which she carries EpiPen who was brought to the ER EMS secondary to witnessed seizure activity. [place] the beach and had acute onset of seizure activity w/generalized tonic-clonic movements. Upon arrival, patient noted to have ongoing seizure activity for approximately 2 hours while in ER, s/p Ativan 4mg IV and Vimpat 150mg IV x1 dose. CT Head normal. CT C-spine also normal. CXR with no acute findings. Labs essentially unremarkable except for K+ 3.0 s/p replacement. Dr. Zamarripa consulted by ER physician, recommended Vimpat. - Acute status epilepticus - Seizure disorder - Neurology consult pending. Patient may need an EEG study as well as further radiological studies. - Continue NPO status for now. Consult Speech therapy for swallow eval. - continue Lacosamide IV 100mg Q8hrs. Lorazepam IV PRN for acute seizure. - Seizure precautions. - Hypokalemia - K+ 3.0 --> 3.8. Resolved. - History of Anaphylaxis - Recent ER presentation 08/26/16 after eating Pumpkin Seeds, used her EpiPen. No acute concerns. Full code. SCDs. Chico Aguilar DO Aug 28, 2016 8:44 am
[2016-08-28 08:47] LABS: ALKALINE PHOSPHATASE 58 U/L (45-117); ALT (GPT) 16 U/L (10-53); ANION GAP 10 MEQ/L (5-15); AST (GOT) 11 U/L (15-37); BLOOD UREA NITROGEN 9 MG/DL (7-18); CHLORIDE 109 MEQ/L (98-107); GLOMERULAR FILTRATION RATE 218 ML/MIN (>89); POTASSIUM 3.8 MEQ/L (3.5-5.1); SODIUM (NA) 140 MEQ/L (136-145); TOTAL BILIRUBIN ADULT 0.3 MG/DL (0.2-1.0)
[2016-08-28] MEDS ORDERED: RESP: ALBUTEROL 2.5 MG/IPRATROPIUM 0.5 MG NEB (PRN) NEB (10:45)
[2016-08-28] MEDS ORDERED: ATENOLOL 25 MG TAB PO ONE (11:00)
[2016-08-28] MEDS ORDERED: diphenhydrAMINE HCL 25 MG CAP PO PRN (13:30)
[2016-08-28] MEDS ORDERED: predniSONE 20 MG TAB PO ONE (13:30)
[2016-08-28] MEDS: clonazePAM 0.5 MG TAB PO SCH (19:00)
--- NOTE | 2016-08-28 19:32 | MB ---
cc: LATOSHA MORROW DATE OF CONSULTATION 08/28/16 REASON FOR CONSULTATION Intractable seizures. HISTORY OF PRESENT ILLNESS This is a pleasant 21-year female with long history of seizure disorders that has been difficult to control. In the past, she was on Dilantin and Keppra, but had allergic reactions. She was also on Trileptal in the past but did not control seizures. She is on Depakote in the past, but this did not control her seizures. More recently, she has been on Vimpat 400 mg daily b.i.d. and also Onfi 10 mg b.i.d. Yesterday she referred to the ER after witnessed seizure activity. She apparently was on the beach and developed seizures. She continued with seizures in the emergency room, was treated with Ativan 4 mg IV, Vimpat 150 mg IV with cessation of the seizures and was postictal afterwards. She states that the current regimen has been the best in trolling her seizures. She tolerates them well. She has had no recurrent seizures today. PAST MEDICAL HISTORY 1. Seizure disorder, 2. history of anaphylaxis in the past. MEDICATIONS 1. Vimpat 400 mg b.i.d. 2. Onfi 10 mg b.i.d. ALLERGIES DILANTIN KEPPRA PENICILLIN ZOFRAN NEUROLOGIC EXAMINATION Blood pressure is 107/55, pulse 77, respiratory rate 21, temperature 97 degrees. Higher cortical functions - Normal at this time. She is alert and oriented. Follows commands. Cranial nerves are intact. Motor exam - there is no focal deficit. Reflexes are symmetric. IMAGING STUDIES CT of the brain is normal. CT cervical spine normal. LABORATORY DATA White count 7500, hemoglobin 10.6, hematocrit 31.7% platelet count 161,000. Sodium is 140, potassium 3.8, chloride 109, CO2 21, BUN is nine, creatinine 0.37, GFR is 218, glucose 83. IMPRESSION Breakthrough seizures. RECOMMENDATIONS Would increase Onfi to 20 mg b.i.d. Continue Vimpat 400 mg b.i.d. MD CARROLL Sandoval/ /4:53 PM /7:20 PM
[2016-08-28] MEDS ORDERED: LACOSAMIDE 100 MG TAB PO SCH (21:00)
[2016-08-28] MEDS: predniSONE 20 MG TAB PO SCH (21:00)
[2016-08-29] VITALS (37 sets, daily range): BP systolic 89–135; BP diastolic 50–69; PULSE 59–124; RESP 17–38; TEMP 98.1–99.3; O2SAT 85–100
[2016-08-29] MEDS: LACOSAMIDE INJ 100 MG in SODIUM CHLORIDE 0.9% INJ 100 ML IV SCH ×5 (01:05→15:06)
[2016-08-29] MEDS: TOPIRAMATE 25 MG TAB PO SCH ×4 (01:13→18:00)
[2016-08-29] MEDS: LORazepam 2 MG/ML VIAL IV PUSH PRN ×10 (04:23→21:51)
[2016-08-29] MEDS: CHLORHEXIDINE GLUCONATE 2 % 1 PACK (2 CLOTHS) TOP SCH (04:38)
[2016-08-29] MEDS ORDERED: FLUTICASONE FUROATE INH SCH (09:00)
[2016-08-29] MEDS ORDERED: VILANTEROL INH SCH (09:00)
[2016-08-29] MEDS: DOCUSATE SODIUM 50 MG/SENNA 8.6 MG TAB PO SCH ×2 (09:00→20:35)
[2016-08-29] MEDS: predniSONE 20 MG TAB PO SCH ×2 (09:44→20:34)
[2016-08-29] MEDS: ATENOLOL 25 MG TAB PO SCH (09:45)
[2016-08-29] MEDS: SODIUM CHLOR 0.9% 1000 ML INJ 1,000 ML IV SCH ×2 (09:45→12:10)
[2016-08-29] MEDS: clonazePAM 0.5 MG TAB PO SCH ×4 (09:45→18:58)
[2016-08-29] MEDS: SODIUM CHLORIDE 0.9% FLUSH 10 ML FLUSH IV FLUSH SCH ×2 (09:45→20:34)
[2016-08-29] MEDS ORDERED: PROCHLORPERAZINE INJ 10 MG/2 ML VIAL IV PUSH PRN (15:00)
--- NOTE | 2016-08-29 15:37 | HHI.PR ---
Review/Management Diagnosis THis had the appearance of a focal complex-partial SZ with a left hemisphere focus (rightward eye deviation and posturing of RUE in extension and LUE flexed. Plan stat EEG add phenobarbital to vimpat, topamax, klonopin CT brain today when stable since she may have hit head during sz. Diagnosis/Plan: Subjective Subjective Comments Pt had 2 sz last pm which responded to ativan. Had a sz this afternoon and was on floor--possibly hit head. I witnessed sz---she is not responsive and not following commands. Her eyes are deviated to right with nystagmus and she holds right arm extended and left arm is flexed with increased tone. She received total of 6 mg iv ativan with no help. Received 60 mg iv phenobarbital and the sz stopped. Now is post ictal--follows some commands but is confused and lethargic. Active Medications Current Medications Medications (Trade) Dose Ordered Sig/Dorothy Route Start Time Stop Time Status Last Admin Miscellaneous Information 1 [id number] XX 08/27/16 23:00 08/27/16 23:00 (Chlorhexidine 2% Cloth) 3 pack Taper DAILY@04 TOP 08/28/16 04:00 08/24/17 03:59 08/29/16 04:38 Chlorhexidine Gluconate 3 pack 3 pack UNSCH PRN TOP 08/27/16 23:00 (NS 1000 ml Inj) 1,000 ml @ 100 mls/hr Q10H IV 08/27/16 22:51 08/29/16 12:10 (NS Flush) 2 ml UNSCH PRN IV FLUSH 08/27/16 23:00 08/29/16 09:45 (NS Flush) 2 ml BID IV FLUSH 08/28/16 09:00 08/29/16 09:45 (Velma-Colace) 1 tab BID PO 08/28/16 09:00 (Milk Of Magnesia Liq) 30 ml Q12H PRN PO 08/27/16 23:00 (Senokot) 17.2 mg Q12H PRN PO 08/27/16 23:00 (Dulcolax Supp) 10 mg DAILY PRN RECTAL 08/27/16 23:00 (Lactulose Liq) 30 ml DAILY PRN PO 08/27/16 23:00 (Ativan Inj) 1 mg Q5M PRN IV PUSH 08/27/16 23:00 08/29/16 14:37 Patient Own Medication PT OWN MED: JOHNY LOY... DAILY INH 08/29/16 09:00 Hold (Tenormin) 25 mg DAILY PO 08/29/16 09:00 08/29/16 09:45 (Deltasone) 20 mg BID PO 08/28/16 21:00 08/29/16 09:44 (Benadryl) 25 mg Q6H PRN PO 08/28/16 13:30 Patient Own Medication PT OWN MED: onfi 20 MG BID PO 08/28/16 21:00 Hold Clonazepam 0.5 mg 0.5 mg TID PO 08/28/16 19:00 08/29/16 12:09 (Vimpat Inj/NS Inj) 110 ml @ 220 mls/hr Q4H IV 08/29/16 00:00 08/29/16 15:06 (Topamax) 50 mg TID PO 08/29/16 00:30 08/29/16 12:09 (Compazine Inj) 5 mg Q6H PRN IV PUSH 08/29/16 15:00 Allergies Allergies Coded Allergies Dilantin (Verified Allergy, Severe, Seizures, 08/26/16) Keppra (Verified Allergy, Severe, Seizures, 08/26/16) PEANUTS (Verified Allergy, Severe, ANAPHYLAXIS, 08/28/16) Penicillin (Verified Allergy, Severe, Anaphylaxis, 08/26/16) Pineapple (Verified Allergy, Severe, ANAPHYLAXIS, 08/28/16) Zofran (Verified Allergy, Severe, Hives, 08/26/16) Gluten (Verified Allergy, Intermediate, 08/28/16) Dairy (Verified Allergy, Mild, 08/28/16) Exam I&O / VS 08/28/16 08/28/16 08/29/16 15:00 23:00 07:00 Intake Total 850 ml 585 ml 787 ml Output Total 1200 ml 0 ml Balance -350 ml 585 ml 787 ml Intake Oral 850 ml 0 ml 0 ml IV Total 585 ml 787 ml Output Urine Total 1200 ml 0 ml Stool Total 0 ml # Voids 1 # Bowel Movements 0 0 Vital Signs Date Time Temp Pulse Resp B/P Pulse Ox O2 Delivery O2 Flow Rate FiO2 08/29/16 12:00 72 08/29/16 11:00 75 21 08/29/16 10:00 85 17 105/55 100 08/29/16 10:00 85 08/29/16 09:00 75 23 95/53 100 08/29/16 08:00 98.1 86 18 98/53 98 08/29/16 08:00 86 08/29/16 07:29 99 Nasal Cannula 3.00 08/29/16 07:00 75 19 91/50 99 08/29/16 06:00 81 08/29/16 04:00 98.2 94 24 100/56 98 08/29/16 04:00 94 08/29/16 02:00 59 08/29/16 00:00 80 08/29/16 00:00 98.4 80 23 97/51 98 08/28/16 22:00 79 08/28/16 20:00 111 08/28/16 20:00 99.4 111 39 105/60 95 08/28/16 18:00 59 08/28/16 16:00 59 08/28/16 16:00 97.6 63 20 100/57 97 Exam Comments Her exam during the sz is as described above. Now she appears post ictal-- lethargic but follows simple commands. EOM--intact pupils equal Roc Zamarripa PhD Aug 29, 2016 15:37
[2016-08-29] MEDS ORDERED: PHENobarbital INJ 1,000 MG in SODIUM CHLORIDE 0.9% INJ 100 ML IV ONE (16:30)
--- NOTE | 2016-08-29 17:50 | RADRPT ---
EXAM DATE/TIME: 08/29/2016 17:39 [place] COMPARISON: CT BRAIN W/O CONTRAST, August 27, 2016, 21:39. INDICATIONS : Trauma; seizure, found on floor. RADIATION DOSE: 49.72 CTDIvol (mGy) MEDICAL HISTORY : Seizures. SURGICAL HISTORY : None. ENCOUNTER: Initial ACUITY: 1 day PAIN SCALE: 4/10 LOCATION: Bilateral cranial TECHNIQUE: Multiple contiguous axial images were obtained of the head. Using automated exposure control and adj ustment of the mA and/or kV according to patient size, radiation dose was kept as low as reasonably a chievable to obtain optimal diagnostic quality images. FINDINGS: CEREBRUM: The ventricles are normal for age. No evidence of midline shift, mass lesion, hemorrhage or acute in farction. No extra-axial fluid collections are seen. POSTERIOR FOSSA: The cerebellum and brainstem are intact. The 4th ventricle is midline. The cerebellopontine angle i s unremarkable. EXTRACRANIAL: The visualized portion of the orbits is intact. SKULL: The calvaria is intact. No evidence of skull fracture. CONCLUSION: Negative noncontrast CT brain. Vamsi Jaime MD on August 29, 2016 at 17:47 Board Certified Radiologist. This report was verified electronically.
[2016-08-29] MEDS: LACOSAMIDE INJ 200 MG in SODIUM CHLORIDE 0.9% INJ 100 ML IV SCH (20:34)
--- NOTE | 2016-08-29 23:47 | HHI.PR ---
Subjective Remarks Follow up for recurrent seizure activities. Patient was seen this morning. She experienced multiple seizure activities overnight and this morning. She is very lethargic. However, after multiple attempts, she wakes up and says a few words. No fever, chills. She is unable to provide much information regarding her seizure medications. I discussed with RN later on. Later in the morning, patient was more alert and was able to eat/drink. In the afternoon, patient apparently had another episode of seizure and fell. It was not witnessed and thus there is a possibility of hitting her head. CT head was to be performed. Objective Vitals Vital Signs Date Time Temp Pulse Resp B/P Pulse Ox O2 Delivery O2 Flow Rate FiO2 08/29/16 22:16 97 Nasal Cannula 3.00 08/29/16 22:00 85 08/29/16 20:00 99.3 90 27 110/69 100 08/29/16 20:00 90 08/29/16 18:30 85 23 94/53 96 08/29/16 18:00 84 08/29/16 18:00 84 24 98/57 97 08/29/16 17:30 97 18 99/54 08/29/16 17:00 84 22 99/54 98 08/29/16 16:30 99/58 08/29/16 16:00 87 08/29/16 16:00 87 26 89/53 99 08/29/16 15:45 88 23 92/53 98 08/29/16 15:30 97 33 97/54 08/29/16 15:01 104 135/52 95 08/29/16 15:00 103 85 08/29/16 14:45 91 24 93/50 99 08/29/16 14:31 91 26 91/52 100 08/29/16 14:30 90 24 100 08/29/16 14:15 124 25 98 08/29/16 14:00 79 08/29/16 14:00 79 18 95/56 96 08/29/16 13:45 81 35 98 08/29/16 13:30 98 100 08/29/16 13:15 79 21 97 08/29/16 13:00 78 20 93/54 96 08/29/16 12:45 77 21 95 08/29/16 12:30 77 21 96 08/29/16 12:15 73 38 97 08/29/16 12:10 74 20 90/53 99 08/29/16 12:00 72 08/29/16 12:00 72 21 97 08/29/16 11:00 75 21 08/29/16 10:00 85 17 105/55 100 08/29/16 10:00 85 08/29/16 09:00 75 23 95/53 100 08/29/16 08:00 98.1 86 18 98/53 98 08/29/16 08:00 86 08/29/16 07:29 99 Nasal Cannula 3.00 08/29/16 07:00 75 19 91/50 99 08/29/16 06:00 81 08/29/16 04:00 98.2 94 24 100/56 98 08/29/16 04:00 94 08/29/16 02:00 59 08/29/16 00:00 80 08/29/16 00:00 98.4 80 23 97/51 98 I/O 08/28/16 08/28/16 08/28/16 08/29/16 08/29/16 08/29/16 07:00 15:00 23:00 07:00 15:00 23:00 Intake Total 496 ml 850 ml 585 ml 787 ml 1451 ml 544 ml Output Total 285 ml 1200 ml 0 ml 1400 ml Balance 211 ml -350 ml 585 ml 787 ml 51 ml 544 ml Intake Oral 0 ml 850 ml 0 ml 0 ml 350 ml 0 ml IV Total 496 ml 585 ml 787 ml 1101 ml 544 ml Output Urine Total 285 ml 1200 ml 0 ml 1400 ml Stool Total 0 ml # Voids 1 3 1 # Bowel Movements 0 0 0 0 0 Result Diagram: 08/28/16 0630 08/28/16 0630 Imaging Last Impressions Head CT 08/29/16 0000 Signed Impressions: Service Date/Time: Monday, August 29, 2016 17:39 - CONCLUSION: Negative noncontrast CT brain. Vamsi Jaime MD Cervical Spine CT 08/27/162107 Signed Impressions: Service Date/Time: Saturday, August 27, 2016 21:43 - CONCLUSION: Normal examination for a patient of this age. Richy Williamson MD Objective Remarks GENERAL: Alert, oriented to person only. Follows commands appropriately. SKIN: Warm and dry. HEAD: Normocephalic. EYES: No scleral icterus. No injection or drainage. NECK: Supple, trachea midline. No JVD or lymphadenopathy. CARDIOVASCULAR: Regular rate and rhythm without murmurs, gallops, or rubs. RESPIRATORY: Breath sounds equal bilaterally. No accessory muscle use. GASTROINTESTINAL: Abdomen soft, non-tender, nondistended. MUSCULOSKELETAL: No cyanosis, or edema. BACK: Nontender without obvious deformity. No CVA tenderness. Procedures None A/P Problem List: (1) Seizure disorder ICD Code: G40.909 Status: Acute (2) Status epilepticus ICD Code: G40.901 Status: Acute (3) Hypokalemia ICD Code: E87.6 Status: Acute (4) Anaphylaxis ICD Code: T78.2XXA Status: Acute Assessment and Plan Ms. Oneill is a 21-year-old female with a PMH of Seizure Disorder and h/o Anaphylaxis for which she carries EpiPen who was brought to the ER EMS secondary to witnessed seizure activity. [place] and had acute onset of seizure activity w/generalized tonic-clonic movements. Upon arrival, patient noted to have ongoing seizure activity for approximately 2 hours while in ER, s/p Ativan 4mg IV and Vimpat 150mg IV x1 dose. CT Head normal. CT C-spine also normal. CXR with no acute findings. Labs essentially unremarkable except for K+ 3.0 s/p replacement. Dr. Zamarripa consulted by ER physician, recommended Vimpat. - Acute status epilepticus - Seizure disorder - Neurology is following closely. Patient may need an EEG study as well as further radiological studies. - Change diet to regular diet. Per RN, patient passed bedside swallow test well. - Dr. Zamarripa evaluated patient this afternoon and changed patient's seizure meds. - continue Lacosamide IV 200mg Q6hrs. Phenobarbital was added. - Continue Topamax, Clonazepam - Lorazepam IV PRN for acute seizure. - Seizure precautions. - Hypokalemia - K+ 3.0 --> 3.8. Resolved. - History of Anaphylaxis - Recent ER presentation 08/26/16 after eating Pumpkin Seeds, used her EpiPen. No acute concerns. Full code. SCDs. Chico Aguilar DO Aug 29, 2016 23:47
[2016-08-30] VITALS (15 sets, daily range): BP systolic 86–115; BP diastolic 52–71; PULSE 66–102; RESP 15–31; TEMP 97.7–98.6; O2SAT 95–99
[2016-08-30] MEDS: LORazepam 2 MG/ML VIAL IV PUSH PRN ×19 (02:09→23:15)
[2016-08-30] MEDS: SODIUM CHLOR 0.9% 1000 ML INJ 1,000 ML IV SCH ×3 (02:20→20:36)
[2016-08-30] MEDS: CHLORHEXIDINE GLUCONATE 2 % 1 PACK (2 CLOTHS) TOP SCH (04:00)
[2016-08-30] MEDS: LACOSAMIDE INJ 200 MG in SODIUM CHLORIDE 0.9% INJ 100 ML IV SCH ×4 (04:45→20:35)
[2016-08-30] MEDS: SODIUM CHLORIDE 0.9% FLUSH 10 ML FLUSH IV FLUSH SCH ×2 (08:48→20:30)
[2016-08-30] MEDS: ATENOLOL 25 MG TAB PO SCH (09:00)
[2016-08-30] MEDS: clonazePAM 0.5 MG TAB PO SCH ×3 (10:59→17:54)
[2016-08-30] MEDS: predniSONE 20 MG TAB PO SCH ×2 (10:59→20:31)
[2016-08-30] MEDS: DOCUSATE SODIUM 50 MG/SENNA 8.6 MG TAB PO SCH ×2 (10:59→20:37)
[2016-08-30] MEDS: TOPIRAMATE 25 MG TAB PO SCH ×2 (10:59→14:33)
--- NOTE | 2016-08-30 11:01 | HHI.PR ---
Subjective Remarks Follow up for recurrent seizure activities. Ms. Oneill experienced 4 seizure activities overnight - last one being at 6:45AM. Patient fell yesterday following a seizure - CT head was unremarkable for any acute findings. Due to concern over her safety, restraints were placed. However, patient strongly disagrees with restraints, especially with regards to restraining her upper extremities. Patient initially insisted on going home. She also does not want to be transferred to [place] at this point. After further discussion, she agrees to stay in the hospital at [facility] if she is not placed under restraints again. She also does not want to take Phenobarbital because it makes her hallucinate. Additionally, patient states that she gets frequent seizures at home and she knows how to deal with such episodes. She usually takes Versed IM along with other medications. When we inquired about her seizure medication Onfi - she says she just moved and that medication is still in a packed box. She is currently living with her brother in law. Objective Vitals Vital Signs Date Time Temp Pulse Resp B/P Pulse Ox O2 Delivery O2 Flow Rate FiO2 08/30/16 10:00 91 15 08/30/16 09:31 72 20 94/54 08/30/16 08:36 Nasal Cannula 2.00 08/30/16 08:30 76 20 92/70 99 08/30/16 08:00 98.5 66 18 89/52 96 08/30/16 06:00 70 08/30/16 04:00 78 08/30/16 04:00 98.6 78 24 98/57 97 08/30/16 02:00 79 08/30/16 00:00 98.6 78 20 91/52 96 08/30/16 00:00 78 08/29/16 22:16 97 Nasal Cannula 3.00 08/29/16 22:00 85 08/29/16 20:00 99.3 90 27 110/69 100 08/29/16 20:00 90 08/29/16 18:30 85 23 94/53 96 08/29/16 18:00 84 08/29/16 18:00 84 24 98/57 97 08/29/16 17:30 97 18 99/54 08/29/16 17:00 84 22 99/54 98 08/29/16 16:30 99/58 08/29/16 16:00 87 08/29/16 16:00 87 26 89/53 99 08/29/16 15:45 88 23 92/53 98 08/29/16 15:30 97 33 97/54 08/29/16 15:01 104 135/52 95 08/29/16 15:00 103 85 08/29/16 14:45 91 24 93/50 99 08/29/16 14:31 91 26 91/52 100 08/29/16 14:30 90 24 100 08/29/16 14:15 124 25 98 08/29/16 14:00 79 08/29/16 14:00 79 18 95/56 96 08/29/16 13:45 81 35 98 08/29/16 13:30 98 100 08/29/16 13:15 79 21 97 08/29/16 13:00 78 20 93/54 96 08/29/16 12:45 77 21 95 08/29/16 12:30 77 21 96 08/29/16 12:15 73 38 97 08/29/16 12:10 74 20 90/53 99 08/29/16 12:00 72 08/29/16 12:00 72 21 97 08/29/16 11:00 75 21 I/O 08/29/16 08/29/16 08/29/16 08/30/16 08/30/16 08/30/16 07:00 15:00 23:00 07:00 15:00 23:00 Intake Total 787 ml 1451 ml 544 ml 786 ml Output Total 1400 ml Balance 787 ml 51 ml 544 ml 786 ml Intake Oral 0 ml 350 ml 0 ml 0 ml IV Total 787 ml 1101 ml 544 ml 786 ml Output Urine Total 1400 ml # Voids 1 3 1 0 # Bowel Movements 0 0 0 0 Result Diagram: 08/28/16 0630 08/28/16 0630 Imaging Last Impressions Head CT 08/29/16 0000 Signed Impressions: Service Date/Time: Monday, August 29, 2016 17:39 - CONCLUSION: Negative noncontrast CT brain. Vamsi Jaime MD Cervical Spine CT 08/27/162107 Signed Impressions: Service Date/Time: Saturday, August 27, 2016 21:43 - CONCLUSION: Normal examination for a patient of this age. Richy Williamson MD Objective Remarks GENERAL: Alert, oriented to person only. Follows commands appropriately. SKIN: Warm and dry. HEAD: Normocephalic. EYES: No scleral icterus. No injection or drainage. NECK: Supple, trachea midline. No JVD or lymphadenopathy. CARDIOVASCULAR: Regular rate and rhythm without murmurs, gallops, or rubs. RESPIRATORY: Breath sounds equal bilaterally. No accessory muscle use. GASTROINTESTINAL: Abdomen soft, non-tender, nondistended. MUSCULOSKELETAL: No cyanosis, or edema. BACK: Nontender without obvious deformity. No CVA tenderness. Procedures None A/P Problem List: (1) Seizure disorder ICD Code: G40.909 Status: Acute (2) Status epilepticus ICD Code: G40.901 Status: Acute (3) Hypokalemia ICD Code: E87.6 Status: Acute (4) Anaphylaxis ICD Code: T78.2XXA Status: Acute Assessment and Plan Ms. Oneill is a 21-year-old female with a PMH of Seizure Disorder and h/o Anaphylaxis for which she carries EpiPen who was brought to the ER EMS secondary to witnessed seizure activity. [place] onset of seizure activity w/generalized tonic-clonic movements. Upon arrival, patient noted to have ongoing seizure activity for approximately 2 hours while in ER, s/p Ativan 4mg IV and Vimpat 150mg IV x1 dose. CT Head normal. CT C-spine also normal. CXR with no acute findings. Labs essentially unremarkable except for K+ 3.0 s/p replacement. Dr. Zamarripa consulted by ER physician, recommended Vimpat. - Acute status epilepticus - Seizure disorder - Neurology is following closely. Patient may need an EEG study as well as further radiological studies. - Change diet to regular diet. Per RN, patient passed bedside swallow test well. - Dr. Zamarripa evaluated patient this afternoon and changed patient's seizure meds. - continue Lacosamide IV 200mg Q6hrs. Phenobarbital was added. However, patient does not want to take Phenobarbital. - Continue Topamax, Clonazepam - Lorazepam IV PRN for acute seizure. - Seizure precautions. - Discontinue Restraints. - Discussed at length with patient and Dr. Zamarripa (Neurology). Patient can leave AMA as long as she is alert, oriented x 3 which she currently is. - She also understands the seriousness of her illness having dealt with this for sometime. - Patient does not want to be transferred to [facility] at this point. - Hypokalemia - K+ 3.0 --> 3.8. Resolved. - History of Anaphylaxis - Recent ER presentation 08/26/16 after eating Pumpkin Seeds, used her EpiPen. No acute concerns. Full code. SCDs. Chico Aguilar DO Aug 30, 2016 11:01 am
--- NOTE | 2016-08-30 11:40 | EKG ---
Date Performed: 08/29/2016 Time Performed: 15:19:19 PTAGE: 21 years EKG: Sinus rhythm Since previous tracing, no significant change noted NORMAL ECG PREVIOUS TRACING : 08/26/2016 05.58 DOCTOR: Je Parisi Interpretating Date/Time 08/30/2016 11:38:57
[2016-08-30] MEDS: CLOBAZAM PO SCH ×2 (14:30→20:31)
[2016-08-30] MEDS: TOPIRAMATE 100 MG TAB PO SCH (17:54)
[2016-08-30] MEDS ORDERED: CLOBAZAM PO SCH (21:00)
--- NOTE | 2016-08-30 21:05 | HHI.PR ---
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 Plan Resume phenobarbital temporarily to control sz. Continue vimpat, onfi, klonopin , topamax. Diagnosis/Plan: Subjective Subjective Comments Patient had a total of 9 seizures since 2 am . She was more controlled on phenobarb. Now on onfi 20 mg bid as well as topamax and vimpat Active Medications Current Medications Medications (Trade) Dose Ordered Sig/Dorothy Route Start Time Stop Time Status Last Admin Miscellaneous Information 1 Q361D XX 08/27/16 23:00 08/27/16 23:00 (Chlorhexidine 2% Cloth) 3 pack Taper DAILY@04 TOP 08/28/16 04:00 08/24/17 03:59 08/29/16 04:38 Chlorhexidine Gluconate 3 pack 3 pack UNSCH PRN TOP 08/27/16 23:00 (NS 1000 ml Inj) 1,000 ml @ 100 mls/hr Q10H IV 08/27/16 22:51 08/30/16 20:36 (NS Flush) 2 ml UNSCH PRN IV FLUSH 08/27/16 23:00 08/29/16 09:45 (NS Flush) 2 ml BID IV FLUSH 08/28/16 09:00 08/30/16 20:30 (Velma-Colace) 1 tab BID PO 08/28/16 09:00 08/30/16 10:59 (Milk Of Magnesia Liq) 30 ml Q12H PRN PO 08/27/16 23:00 (Senokot) 17.2 mg Q12H PRN PO 08/27/16 23:00 (Dulcolax Supp) 10 mg DAILY PRN RECTAL 08/27/16 23:00 (Lactulose Liq) 30 ml DAILY PRN PO 08/27/16 23:00 (Ativan Inj) 1 mg Q5M PRN IV PUSH 08/27/16 23:00 08/30/16 20:15 Patient Own Medication PT OWN MED: JOHNY GRANADO... DAILY INH 08/29/16 09:00 Hold (Tenormin) 25 mg DAILY PO 08/29/16 09:00 08/29/16 09:45 (Deltasone) 20 mg BID PO 08/28/16 21:00 08/30/16 20:31 (Benadryl) 25 mg Q6H PRN PO 08/28/16 13:30 (KlonoPIN) 0.5 mg TID PO 08/28/16 19:00 08/30/16 17:54 Prochlorperazine Edisylate 5 mg 5 mg Q6H PRN IV PUSH 08/29/16 15:00 (Vimpat Inj/NS Inj) 120 ml @ 220 mls/hr Q6H IV 08/29/16 21:00 08/30/16 20:35 Non-Formulary Medication ONFI (CLOBAZAM) 20 MG... BID PO 08/30/16 14:30 08/30/16 20:31 (Topamax) 100 mg TID PO 08/30/16 18:00 08/30/16 17:54 Allergies Allergies Coded Allergies Dilantin (Verified Allergy, Severe, Seizures, 08/26/16) Keppra (Verified Allergy, Severe, Seizures, 08/26/16) PEANUTS (Verified Allergy, Severe, ANAPHYLAXIS, 08/28/16) Penicillin (Verified Allergy, Severe, Anaphylaxis, 08/26/16) Pineapple (Verified Allergy, Severe, ANAPHYLAXIS, 08/28/16) Zofran (Verified Allergy, Severe, Hives, 08/26/16) Gluten (Verified Allergy, Intermediate, 08/28/16) Dairy (Verified Allergy, Mild, 08/28/16) Exam I&O / VS 08/29/16 08/29/16 08/30/16 15:00 23:00 07:00 Intake Total 1451 ml 544 ml 786 ml Output Total 1400 ml Balance 51 ml 544 ml 786 ml Intake Oral 350 ml 0 ml 0 ml IV Total 1101 ml 544 ml 786 ml Output Urine Total 1400 ml # Voids 3 1 0 # Bowel Movements 0 0 0 Vital Signs Date Time Temp Pulse Resp B/P Pulse Ox O2 Delivery O2 Flow Rate FiO2 08/30/16 16:00 98.5 85 24 86/52 95 08/30/16 15:00 89 30 114/61 98 08/30/16 14:01 99 29 115/71 99 08/30/16 13:00 92 25 95/53 96 08/30/16 12:00 98.6 101 28 105/56 08/30/16 10:00 91 15 08/30/16 09:31 72 20 94/54 08/30/16 08:36 Nasal Cannula 2.00 08/30/16 08:30 76 20 92/70 99 08/30/16 08:00 98.5 66 18 89/52 96 08/30/16 06:00 70 08/30/16 04:00 78 08/30/16 04:00 98.6 78 24 98/57 97 08/30/16 02:00 79 08/30/16 00:00 98.6 78 20 91/52 96 08/30/16 00:00 78 08/29/16 22:16 97 Nasal Cannula 3.00 08/29/16 22:00 85 Exam Comments lethargic but arouses without difficulty. Responds appropriately to questions EOM--intact pupils equal Motor --no focal deficits Objective Micro and Labs Laboratory Tests Test 08/30/16 08:23 Phenobarbital Level 7.8 Roc Zamarripa PhD Aug 30, 2016 21:05
[2016-08-31] VITALS (24 sets, daily range): BP systolic 83–118; BP diastolic 50–76; PULSE 56–97; RESP 20–46; TEMP 97.2–98.6; O2SAT 97–100
[2016-08-31] MEDS: LORazepam 2 MG/ML VIAL IV PUSH PRN ×8 (00:40→23:27)
[2016-08-31] MEDS: LACOSAMIDE INJ 200 MG in SODIUM CHLORIDE 0.9% INJ 100 ML IV SCH ×4 (03:36→21:12)
[2016-08-31] MEDS: CHLORHEXIDINE GLUCONATE 2 % 1 PACK (2 CLOTHS) TOP SCH ×2 (03:36→21:22)
[2016-08-31] MEDS: predniSONE 20 MG TAB PO SCH ×2 (07:51→21:00)
[2016-08-31] MEDS: clonazePAM 0.5 MG TAB PO SCH ×3 (07:51→17:49)
[2016-08-31] MEDS: CLOBAZAM PO SCH ×2 (07:51→21:00)
[2016-08-31] MEDS: TOPIRAMATE 100 MG TAB PO SCH ×4 (07:51→17:55)
[2016-08-31] MEDS: SODIUM CHLORIDE 0.9% FLUSH 10 ML FLUSH IV FLUSH SCH ×2 (07:54→21:00)
[2016-08-31] MEDS: DOCUSATE SODIUM 50 MG/SENNA 8.6 MG TAB PO SCH ×2 (07:54→21:00)
[2016-08-31] MEDS: SODIUM CHLOR 0.9% 1000 ML INJ 1,000 ML IV SCH ×3 (07:54→23:27)
[2016-08-31] MEDS: ATENOLOL 25 MG TAB PO SCH (07:54)
--- NOTE | 2016-08-31 09:39 | HHI.PR ---
Subjective Remarks Patient is lethargic. Tried to get out of bed. Last seizure at 1 AM. JUSTINO RN. Objective Vitals Vital Signs Date Time Temp Pulse Resp B/P Pulse Ox O2 Delivery O2 Flow Rate FiO2 08/31/16 06:00 73 08/31/16 04:00 68 08/31/16 04:00 97.7 68 91/53 97 08/31/16 02:00 72 08/31/16 00:00 98.6 77 21 105/58 99 08/31/16 00:00 77 08/30/16 22:00 102 08/30/16 20:00 96 08/30/16 20:00 97.7 96 31 90/58 96 08/30/16 16:00 98.5 85 24 86/52 95 08/30/16 15:00 89 30 114/61 98 08/30/16 14:01 99 29 115/71 99 08/30/16 13:00 92 25 95/53 96 08/30/16 12:00 98.6 101 28 105/56 08/30/16 10:00 91 15 I/O 08/30/16 08/30/16 08/30/16 08/31/16 08/31/16 08/31/16 07:00 15:00 23:00 07:00 15:00 23:00 Intake Total 786 ml 1325 ml 908 ml 865 ml Output Total 800 ml 1100 ml 900 ml Balance 786 ml 525 ml -192 ml -35 ml Intake Oral 0 ml 400 ml 120 ml 0 ml IV Total 786 ml 925 ml 788 ml 865 ml Output Urine Total 800 ml 1100 ml 900 ml # Voids 0 2 2 # Bowel Movements 0 0 0 0 Result Diagram: 08/28/16 0630 08/28/16 0630 Imaging Last Impressions Head CT 08/29/16 0000 Signed Impressions: Service Date/Time: Monday, August 29, 2016 17:39 - CONCLUSION: Negative noncontrast CT brain. Vamsi Jaime MD Cervical Spine CT 08/27/162107 Signed Impressions: Service Date/Time: Saturday, August 27, 2016 21:43 - CONCLUSION: Normal examination for a patient of this age. Richy Williamson MD Objective Remarks GENERAL: Patient is lethargic, confused. In no acute distress. CARDIOVASCULAR: Normal rate and regular rhythm without murmurs, gallops, or rubs. RESPIRATORY: Breath sounds equal and clear to auscultation bilaterally. GASTROINTESTINAL: Abdomen soft, non-tender, non-distended. Normal active bowel sounds MUSCULOSKELETAL: Extremities without cyanosis, or edema. NEURO: Lethargic. Confused. Moves all ext x4 Procedures None A/P Problem List: (1) Seizure disorder ICD Code: G40.909 Status: Acute (2) Status epilepticus ICD Code: G40.901 Status: Acute (3) Hypokalemia ICD Code: E87.6 Status: Acute (4) Anaphylaxis ICD Code: T78.2XXA Status: Acute Assessment and Plan 21-year-old female with a PMH of Seizure Disorder and h/o Anaphylaxis for which she carries EpiPen who was brought to the ER EMS secondary to witnessed seizure activity. [place] and had acute onset of seizure activity w/generalized tonic-clonic movements. Upon arrival, patient noted to have ongoing seizure activity for approximately 2 hours while in ER, s/p Ativan 4mg IV and Vimpat 150mg IV x1 dose. CT Head normal. CT C-spine also normal. CXR with no acute findings. Labs essentially unremarkable except for K+ 3.0 s/ p replacement. Dr. Zamarripa neurology following. - Acute status epilepticus - Seizure disorder - Neurology is following closely. - continue Lacosamide IV 200mg Q6hrs. Phenobarbital IV was added. Patient previously refused phenobarbital however she continued to seize. Therefore this was added for seizure control. - Continue Topamax, Clonazepam - Lorazepam IV PRN for acute seizure. - Seizure precautions. - Patient does not want to be transferred to [facility] at this point. - Hypokalemia - K+ 3.0 --> 3.8. Resolved. Follow-up BMP today. - History of Anaphylaxis - Recent ER presentation 08/26/16 after eating Pumpkin Seeds, used her EpiPen. No acute concerns. Full code. SCDs. Discharge Planning Continue care in the ICU for recurrent seizures. Delroy Lanza MD Aug 31, 2016 09:39
[2016-08-31 11:49] LABS: BASOPHIL % 0.1 % (0.0-2.0); HEMATOCRIT 39.5 % (35.0-46.0); HEMO FLAGS DIFF FINAL; LYMPH % 7.1 % (9.0-44.0); LYMPHOCYTE # 0.6 TH/MM3 (1.0-4.8); MEAN CELL VOLUME 84.2 FL (80.0-100.0); MEAN CORPUSCULAR HEMOGLOBIN 27.8 PG (27.0-34.0); MONO % 2.2 % (0.0-8.0); NEUT % 90.6 % (16.0-70.0); PLATELET COUNT 216 TH/MM3 (150-450); RED BLOOD COUNT 4.69 MIL/MM3 (4.00-5.30); RED CELL DISTRIBUTION WIDTH 13.9 % (11.6-17.2); WHITE BLOOD COUNT 8.9 TH/MM3 (4.0-11.0)
[2016-08-31 12:24] LABS: BICARBONATE 18.2 MEQ/L (21.0-32.0)
--- NOTE | 2016-08-31 21:14 | HHI.PR ---
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 Concerned that some may be pseudoseizures Plan Continue current therapy as the number of SZ appears to be reducing. If they continue, consider transfer to a hospital where continuous EEG telemetry is available to assess for possible pseudoseizures. Diagnosis/Plan: Subjective Subjective Comments Patient has had reduction in number of spells/ seizures Atypical behavior noted during some--forced eye closure, posturing Active Medications Current Medications Medications (Trade) Dose Ordered Sig/Dorothy Route Start Time Stop Time Status Last Admin Miscellaneous Information 1 Q361D XX 08/27/16 23:00 08/27/16 23:00 (Chlorhexidine 2% Cloth) 3 pack Taper DAILY@04 TOP 08/28/16 04:00 08/24/17 03:59 08/29/16 04:38 Chlorhexidine Gluconate 3 pack 3 pack UNSCH PRN TOP 08/27/16 23:00 (NS 1000 ml Inj) 1,000 ml @ 100 mls/hr Q10H IV 08/27/16 22:51 08/31/16 15:10 (NS Flush) 2 ml UNSCH PRN IV FLUSH 08/27/16 23:00 08/29/16 09:45 (NS Flush) 2 ml BID IV FLUSH 08/28/16 09:00 08/31/16 07:54 (Velma-Colace) 1 tab BID PO 08/28/16 09:00 08/30/16 10:59 (Milk Of Magnesia Liq) 30 ml Q12H PRN PO 08/27/16 23:00 (Senokot) 17.2 mg Q12H PRN PO 08/27/16 23:00 (Dulcolax Supp) 10 mg DAILY PRN RECTAL 08/27/16 23:00 (Lactulose Liq) 30 ml DAILY PRN PO 08/27/16 23:00 (Ativan Inj) 1 mg Q5M PRN IV PUSH 08/27/16 23:00 08/31/16 12:03 Patient Own Medication PT OWN MED: JOHNY VALDIVIAI... DAILY INH 08/29/16 09:00 Hold (Tenormin) 25 mg DAILY PO 08/29/16 09:00 08/29/16 09:45 (Deltasone) 20 mg BID PO 08/28/16 21:00 08/31/16 07:51 (Benadryl) 25 mg Q6H PRN PO 08/28/16 13:30 (KlonoPIN) 0.5 mg TID PO 08/28/16 19:00 08/31/16 17:49 Prochlorperazine Edisylate 5 mg 5 mg Q6H PRN IV PUSH 08/29/16 15:00 (Vimpat Inj/NS Inj) 120 ml @ 220 mls/hr Q6H IV 08/29/16 21:00 08/31/16 15:00 Non-Formulary Medication ONFI (CLOBAZAM) 20 MG... BID PO 08/30/16 14:30 08/31/16 07:51 (Topamax) 100 mg TID PO 08/30/16 18:00 08/31/16 12:16 (Luminal Inj) 65 mg Q8HR IV 08/30/16 22:00 08/31/16 12:17 Allergies Allergies Coded Allergies Dilantin (Verified Allergy, Severe, Seizures, 08/26/16) Keppra (Verified Allergy, Severe, Seizures, 08/26/16) PEANUTS (Verified Allergy, Severe, ANAPHYLAXIS, 08/28/16) Penicillin (Verified Allergy, Severe, Anaphylaxis, 08/26/16) Pineapple (Verified Allergy, Severe, ANAPHYLAXIS, 08/28/16) Zofran (Verified Allergy, Severe, Hives, 08/26/16) Gluten (Verified Allergy, Intermediate, 08/28/16) Dairy (Verified Allergy, Mild, 08/28/16) Exam I&O / VS 08/30/16 08/30/16 08/31/16 15:00 23:00 07:00 Intake Total 1325 ml 908 ml 865 ml Output Total 800 ml 1100 ml 900 ml Balance 525 ml -192 ml -35 ml Intake Oral 400 ml 120 ml 0 ml IV Total 925 ml 788 ml 865 ml Output Urine Total 800 ml 1100 ml 900 ml # Voids 2 2 # Bowel Movements 0 0 0 Vital Signs Date Time Temp Pulse Resp B/P Pulse Ox O2 Delivery O2 Flow Rate FiO2 08/31/16 16:00 97.7 77 25 85/53 08/31/16 15:00 69 25 83/50 08/31/16 14:00 79 20 92/52 08/31/16 13:00 89 26 99/65 08/31/16 12:00 97.2 69 46 96/60 08/31/16 11:00 65 93/52 08/31/16 10:45 87 96/58 08/31/16 10:00 94 08/31/16 09:17 82 100/61 100 08/31/16 08:00 97.7 81 99/64 08/31/16 06:00 73 08/31/16 04:00 68 08/31/16 04:00 97.7 68 91/53 97 08/31/16 02:00 72 08/31/16 00:00 98.6 77 21 105/58 99 08/31/16 00:00 77 08/30/16 22:00 102 Exam Comments Alert, stating "I want to go home" " this is normal for me" Motor --no focal deficits Objective Micro and Labs Laboratory Tests Test 08/31/16 11:32 White Blood Count 8.9 Red Blood Count 4.69 Hemoglobin 13.1 Hematocrit 39.5 Mean Corpuscular Volume 84.2 Mean Corpuscular Hemoglobin 27.8 Mean Corpuscular Hemoglobin 33.0 Concent Red Cell Distribution Width 13.9 Platelet Count 216 Mean Platelet Volume 9.2 Neutrophils (%) (Auto) 90.6 Lymphocytes (%) (Auto) 7.1 Monocytes (%) (Auto) 2.2 Eosinophils (%) (Auto) 0.0 Basophils (%) (Auto) 0.1 Neutrophils # (Auto) 8.0 Lymphocytes # (Auto) 0.6 Monocytes # (Auto) 0.2 Eosinophils # (Auto) 0.0 Basophils # (Auto) 0.0 CBC Comment DIFF FINAL Differential Comment Sodium Level 139 Potassium Level 4.0 Chloride Level 111 Carbon Dioxide Level 18.2 Anion Gap 10 Blood Urea Nitrogen 7 Creatinine 0.54 Estimat Glomerular Filtration 141 Rate Random Glucose 106 Calcium Level 9.4 Roc Zamarripa PhD Aug 31, 2016 21:14
[2016-09-01] VITALS (23 sets, daily range): BP systolic 91–124; BP diastolic 50–72; PULSE 56–100; RESP 15–33; TEMP 97.9–99.6; O2SAT 95–100
[2016-09-01] MEDS: LACOSAMIDE INJ 200 MG in SODIUM CHLORIDE 0.9% INJ 100 ML IV SCH ×3 (02:57→14:44)
[2016-09-01] MEDS: TOPIRAMATE 100 MG TAB PO SCH ×3 (08:20→17:51)
[2016-09-01] MEDS: predniSONE 20 MG TAB PO SCH ×2 (08:20→22:26)
[2016-09-01] MEDS: DOCUSATE SODIUM 50 MG/SENNA 8.6 MG TAB PO SCH ×2 (08:20→22:26)
[2016-09-01] MEDS: clonazePAM 0.5 MG TAB PO SCH ×3 (08:20→17:45)
[2016-09-01] MEDS: ATENOLOL 25 MG TAB PO SCH (08:21)
[2016-09-01] MEDS: CLOBAZAM PO SCH ×2 (08:21→21:00)
[2016-09-01] MEDS: SODIUM CHLORIDE 0.9% FLUSH 10 ML FLUSH IV FLUSH SCH ×2 (08:22→22:27)
--- NOTE | 2016-09-01 10:44 | HHI.PR ---
Subjective Remarks Patient continues to be very combative with nursing staff requiring restraints. Still get confused at times. At times refusing to take her medications but later agreed. Objective Vitals Vital Signs Date Time Temp Pulse Resp B/P Pulse Ox O2 Delivery O2 Flow Rate FiO2 09/01/16 08:40 95 09/01/16 06:00 61 09/01/16 05:00 66 09/01/16 04:03 56 33 108/57 99 09/01/16 04:03 56 09/01/16 04:00 98.6 65 27 09/01/16 04:00 65 09/01/16 03:01 70 09/01/16 03:01 70 30 123/72 98 09/01/16 03:00 72 09/01/16 03:00 72 26 98 09/01/16 02:00 58 19 95/50 09/01/16 02:00 58 09/01/16 01:00 58 09/01/16 01:00 58 24 104/55 09/01/16 00:00 59 09/01/16 00:00 97.9 59 21 104/59 08/31/16 23:00 56 41 106/62 08/31/16 23:00 56 08/31/16 22:00 63 08/31/16 22:00 63 20 97/54 08/31/16 21:01 97 28 103/76 08/31/16 21:01 97 08/31/16 21:00 89 08/31/16 21:00 89 24 08/31/16 20:01 85 08/31/16 20:01 85 25 118/73 08/31/16 20:00 98.0 86 27 08/31/16 20:00 86 08/31/16 19:00 72 23 96/62 97 08/31/16 19:00 72 08/31/16 18:42 63 35 92/51 100 08/31/16 18:00 74 26 08/31/16 17:00 67 43 96/59 08/31/16 16:00 97.7 77 25 85/53 08/31/16 15:00 69 25 83/50 08/31/16 14:00 79 20 92/52 08/31/16 13:00 89 26 99/65 08/31/16 12:00 97.2 69 46 96/60 08/31/16 11:00 65 93/52 08/31/16 10:45 87 96/58 I/O 08/31/16 08/31/16 08/31/16 09/01/16 09/01/16 09/01/16 07:00 15:00 23:00 07:00 15:00 23:00 Intake Total 865 ml 1300 ml 1131 ml 782 ml Output Total 900 ml 1600 ml Balance -35 ml -300 ml 1131 ml 782 ml Intake Oral 0 ml 400 ml 240 ml 0 ml IV Total 865 ml 900 ml 891 ml 782 ml Output Urine Total 900 ml 1600 ml # Voids 2 1 2 # Bowel Movements 0 0 0 0 Result Diagram: 08/31/16113108/31/161131 Objective Remarks GENERAL: Patient is lethargic, confused. In no acute distress. CARDIOVASCULAR: Normal rate and regular rhythm without murmurs, gallops, or rubs. RESPIRATORY: Breath sounds equal and clear to auscultation bilaterally. GASTROINTESTINAL: Abdomen soft, non-tender, non-distended. Normal active bowel sounds MUSCULOSKELETAL: Extremities without cyanosis, or edema. NEURO: Lethargic. Confused. Moves all ext x4 Procedures None A/P Problem List: (1) Seizure disorder ICD Code: G40.909 Status: Acute (2) Status epilepticus ICD Code: G40.901 Status: Acute (3) Hypokalemia ICD Code: E87.6 Status: Acute (4) Anaphylaxis ICD Code: T78.2XXA Status: Acute Assessment and Plan 21-year-old female with a PMH of Seizure Disorder and h/o Anaphylaxis for which she carries EpiPen who was brought to the ER EMS secondary to witnessed seizure activity. [place] and had acute onset of seizure activity w/generalized tonic-clonic movements. Upon arrival, patient noted to have ongoing seizure activity for approximately 2 hours while in ER, s/p Ativan 4mg IV and Vimpat 150mg IV x1 dose. CT Head normal. CT C-spine also normal. CXR with no acute findings. Labs essentially unremarkable except for K+ 3.0 s/ p replacement. Dr. Zamarripa neurology following. - Acute status epilepticus - Seizure disorder - Neurology is following closely. - continue Lacosamide IV 200mg Q6hrs. Phenobarbital IV was added. Patient previously refused phenobarbital however she continued to seize. Therefore this was added for seizure control. - Continue Topamax, Clonazepam - Lorazepam IV PRN for acute seizure. - Per neurology, continue current therapy. If seizures continues, consider transfer to the hospital with continuous EEG monitoring. However patient refused transfer to [facility]. Agitation/combative: Patient gets confused and lethargic at times but also threatened to leave AMA many times. I do not believe she has capacity to leave AMA at this time. -Consult psychiatry. I encouraged the patient to comply with medical treatment so we can get her better so she can go home - Hypokalemia - K+ 3.0 --> 3.8. Resolved. Follow-up BMP - History of Anaphylaxis - Recent ER presentation 08/26/16 after eating Pumpkin Seeds, used her EpiPen. No acute concerns. Full code. SCDs. Discharge Planning Continue care in the ICU for recurrent seizures. Delroy Lanza MD Sep 01, 2016 10:44
[2016-09-01] MEDS: SODIUM CHLOR 0.9% 1000 ML INJ 1,000 ML IV SCH ×2 (13:47→22:27)
--- NOTE | 2016-09-01 14:17 | PD.CONS ---
Provisional Diagnosis Admission Date Aug 27, 2016 at 22:51 [place]. Adjustment disorder with mixed disturbance of emotion and conduct History of Present Illness Service Psychiatry Consult Requested By Raymond Primary Care Physician Linda Primary Care Physician HPI 21-year-old female with history of seizures and pseudoseizures. This physician met with the patient as well as the patient's nurse and sitter. Patient being very manipulative during this hospitalization. However, she shows no evidence of psychotic thinking and is not suffering from a mood disorder. This physician feels the patient is competent to make medical decisions, although it is likely she has a personality disorder. Review of Systems Except as stated in HPI: all other systems reviewed are Neg Past Family Social History Coded Allergies: Dilantin (Verified Allergy, Severe, Seizures, 08/26/16) Keppra (Verified Allergy, Severe, Seizures, 08/26/16) PEANUTS (Verified Allergy, Severe, ANAPHYLAXIS, 08/28/16) Penicillin (Verified Allergy, Severe, Anaphylaxis, 08/26/16) Pineapple (Verified Allergy, Severe, ANAPHYLAXIS, 08/28/16) Zofran (Verified Allergy, Severe, Hives, 08/26/16) Gluten (Verified Allergy, Intermediate, 08/28/16) Dairy (Verified Allergy, Mild, 08/28/16) Active Scripts Prednisone (Deltasone)20 Mg Tab20 Mg PO BID 3 Days Ref 0 Prov:Aurelai Caal DO 08/26/16 Diphenhydramine 25 Mg Cap25 Mg PO Q6H PRN (ALLERGIES) 3 Days Ref 0 Prov:Aurelia Caal DO 08/26/16 Epinephrine Inj (Epipen 2-Hardik Inj)0.3 Mg/0.3 Ml Pfpen0.3 Mg IM ONCE PRN ( ALLERGIC REACTION) #1 PACK Ref 0 Prov:Aurelia Caal DO 08/26/16 Reported Medications Epinephrine (Epipen)0.3 Mg/0.3 Ml Auto.injct 08/26/16 Loratadine (Claritin)10 Mg Tab.rapdis 08/26/16 Omeprazole Magnesium (Prilosec)20 Mg Tab 08/26/16 Potassium Gluconate (Potassium)600 Mg Tablet 08/26/16 Ferrous Sulfate (Iron)325 Mg Capsule.er 08/26/16 Fluticasone-Vilanterol Inh (Breo Ellipta Inh)200-25 Mcg/Act Inh1 Puff INH DAILY #1 INHALER Ref 0 Use daily at the same time. 08/26/16 Albuterol 8.5 GM Inh (Proair Hfa 8.5 GM Inh)90 Mcg/Act Aer1 Puff INH Q4H PRN ( SHORTNESS OF BREATH) #1 INHALER Ref 0 108 mcg/actuation 08/26/16 Atenolol 25 Mg Tab25 Mg PO BID #60 TAB Ref 0 08/26/16 Midazolam HCl/Pf (Midazolam 10 mg/2 ml Syringe)10 Mg/2 Ml Syringe 08/26/16 Lorazepam 2 Mg Tab2 Mg PO HS PRN (ANXIETY AND/OR INSOMNIA) Ref 0 08/26/16 Clonazepam 0.5 Mg Tab0.5 Mg PO TID #60 TAB Ref 0 08/26/16 Clobazam (Onfi)10 Mg Tab10 Mg PO BID 08/26/16 Lacosamide (Vimpat)200 Mg [id number] Mg PO BID #60 TAB Ref 0 08/26/16 Current Medications Medications (Trade) Dose Ordered Sig/Dorothy Route Start Time Stop Time Status Last Admin Miscellaneous Information 1 Q361D XX 08/27/16 23:00 08/27/16 23:00 (Chlorhexidine 2% Cloth) 3 pack Taper DAILY@04 TOP 08/28/16 04:00 08/24/17 03:59 08/31/16 21:22 Chlorhexidine Gluconate 3 pack 3 pack UNSCH PRN TOP 08/27/16 23:00 (NS 1000 ml Inj) 1,000 ml @ 100 mls/hr Q10H IV 08/27/16 22:51 09/01/16 13:47 (NS Flush) 2 ml UNSCH PRN IV FLUSH 08/27/16 23:00 08/29/16 09:45 (NS Flush) 2 ml BID IV FLUSH 08/28/16 09:00 09/01/16 08:22 (Velma-Colace) 1 tab BID PO 08/28/16 09:00 09/01/16 08:20 (Milk Of Magnesia Liq) 30 ml Q12H PRN PO 08/27/16 23:00 (Senokot) 17.2 mg Q12H PRN PO 08/27/16 23:00 (Dulcolax Supp) 10 mg DAILY PRN RECTAL 08/27/16 23:00 (Lactulose Liq) 30 ml DAILY PRN PO 08/27/16 23:00 (Ativan Inj) 1 mg Q5M PRN IV PUSH 08/27/16 23:00 08/31/16 23:27 Patient Own Medication PT OWN MED: JOHNY GRANADO... DAILY INH 08/29/16 09:00 Hold (Tenormin) 25 mg DAILY PO 08/29/16 09:00 09/01/16 08:21 (Deltasone) 20 mg BID PO 08/28/16 21:00 09/01/16 08:20 (Benadryl) 25 mg Q6H PRN PO 08/28/16 13:30 (KlonoPIN) 0.5 mg TID PO 08/28/16 19:00 09/01/16 13:47 Prochlorperazine Edisylate 5 mg 5 mg Q6H PRN IV PUSH 08/29/16 15:00 (Vimpat Inj/NS Inj) 120 ml @ 220 mls/hr Q6H IV 08/29/16 21:00 09/01/16 08:45 Non-Formulary Medication ONFI (CLOBAZAM) 20 MG... BID PO 08/30/16 14:30 09/01/16 08:21 (Topamax) 100 mg TID PO 08/30/16 18:00 09/01/16 13:47 (Luminal Inj) 65 mg Q8HR IV 08/30/16 22:00 09/01/16 13:47 Family History Patient feels her brother is an alcoholic. Social History Patient is living with family members, primarily nieces. She is not currently employed. She receives Social Security disability for her seizures. She denies a history of alcohol or drug abuse. Patient's Strengths (min. 2) Verbal and resilient. Physical Exam Vital Signs Vital Signs Date Time Temp Pulse Resp B/P Pulse Ox O2 Delivery O2 Flow Rate FiO2 09/01/16 13:00 100 28 102/68 98 09/01/16 04:00 98.6 08/30/16 08:36 Nasal Cannula 2.00 I/O 08/31/16 08/31/16 09/01/16 08:00 16:00 00:00 Intake Total 865 ml 1300 ml 1131 ml Output Total 900 ml 1600 ml Balance -35 ml -300 ml 1131 ml Mental Status Examination Speech: Unremarkable Orientation: x3 Memory: Unremarkable Thought Process: Organized, Goal Directed Thought Content: Unremarkable Hallucination Type: None Attention and Concentration: Good Suicidal Ideation: No Previous Suicide Attempts: No Homicidal Ideation: No Previous Homicide Attempts: No Insight: Fair Judgment: WNL Affect: Good Mood: Appropriate Motor Activity: Normal gait Assessment & Plan Problem List: (1) Adjustment disorder with mixed disturbance of emotions and conduct ICD Code: F43.25 Assessment & Plan Estimated LOS: days patient should be recommended for outpatient therapy. This is to treat a long-standing personality disorder. No other recommendations. Patient remains competent to make medical decisions. Ethan Matos MD Sep 01, 2016 14:17
--- NOTE | 2016-09-01 20:54 | HHI.PR ---
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 Concerned that some may be pseudoseizures According to nurse, no seizure or seizure-like episodes occurred today Plan Change anticonvulsant medication to po form If stable with no episodes, consider discharge tomorrow. If she continues with seizures or seizure like episodes, consider transfer to hospital with EEG telemetry capability to assess for sz vs pseudoseizure Diagnosis/Plan: Subjective Subjective Comments Patient has been lethargic , but no reported sz according to nurse Active Medications Current Medications Medications (Trade) Dose Ordered Sig/Dorothy Route Start Time Stop Time Status Last Admin Miscellaneous Information 1 Q361D XX 08/27/16 23:00 08/27/16 23:00 (Chlorhexidine 2% Cloth) 3 pack Taper DAILY@04 TOP 08/28/16 04:00 08/24/17 03:59 08/31/16 21:22 Chlorhexidine Gluconate 3 pack 3 pack UNSCH PRN TOP 08/27/16 23:00 (NS 1000 ml Inj) 1,000 ml @ 100 mls/hr Q10H IV 08/27/16 22:51 09/01/16 13:47 (NS Flush) 2 ml UNSCH PRN IV FLUSH 08/27/16 23:00 08/29/16 09:45 (NS Flush) 2 ml BID IV FLUSH 08/28/16 09:00 09/01/16 08:22 (Velma-Colace) 1 tab BID PO 08/28/16 09:00 09/01/16 08:20 (Milk Of Magnesia Liq) 30 ml Q12H PRN PO 08/27/16 23:00 (Senokot) 17.2 mg Q12H PRN PO 08/27/16 23:00 (Dulcolax Supp) 10 mg DAILY PRN RECTAL 08/27/16 23:00 (Lactulose Liq) 30 ml DAILY PRN PO 08/27/16 23:00 (Ativan Inj) 1 mg Q5M PRN IV PUSH 08/27/16 23:00 08/31/16 23:27 Patient Own Medication PT OWN MED: JOHNY VALDIVIAI... DAILY INH 08/29/16 09:00 Hold (Tenormin) 25 mg DAILY PO 08/29/16 09:00 09/01/16 08:21 (Deltasone) 20 mg BID PO 08/28/16 21:00 09/01/16 08:20 (Benadryl) 25 mg Q6H PRN PO 08/28/16 13:30 (KlonoPIN) 0.5 mg TID PO 08/28/16 19:00 09/01/16 17:45 Prochlorperazine Edisylate 5 mg 5 mg Q6H PRN IV PUSH 08/29/16 15:00 (Vimpat Inj/NS Inj) 120 ml @ 220 mls/hr Q6H IV 08/29/16 21:00 09/01/16 14:44 Non-Formulary Medication ONFI (CLOBAZAM) 20 MG... BID PO 08/30/16 14:30 09/01/16 08:21 (Topamax) 100 mg TID PO 08/30/16 18:00 09/01/16 17:51 (Luminal Inj) 65 mg Q8HR IV 08/30/16 22:00 09/01/16 13:47 Allergies Allergies Coded Allergies Dilantin (Verified Allergy, Severe, Seizures, 08/26/16) Keppra (Verified Allergy, Severe, Seizures, 08/26/16) PEANUTS (Verified Allergy, Severe, ANAPHYLAXIS, 08/28/16) Penicillin (Verified Allergy, Severe, Anaphylaxis, 08/26/16) Pineapple (Verified Allergy, Severe, ANAPHYLAXIS, 08/28/16) Zofran (Verified Allergy, Severe, Hives, 08/26/16) Gluten (Verified Allergy, Intermediate, 08/28/16) Dairy (Verified Allergy, Mild, 08/28/16) Exam I&O / VS 08/31/16 08/31/16 09/01/16 15:00 23:00 07:00 Intake Total 1300 ml 1131 ml 782 ml Output Total 1600 ml Balance -300 ml 1131 ml 782 ml Intake Oral 400 ml 240 ml 0 ml IV Total 900 ml 891 ml 782 ml Output Urine Total 1600 ml # Voids 2 1 2 # Bowel Movements 0 0 0 Vital Signs Date Time Temp Pulse Resp B/P Pulse Ox O2 Delivery O2 Flow Rate FiO2 09/01/16 18:58 Room Air 09/01/16 17:15 98.2 62 20 92/56 100 09/01/16 16:07 64 09/01/16 16:07 91/51 09/01/16 15:00 61 23 107/52 09/01/16 15:00 61 09/01/16 15:00 61 23 107/52 17 15:00 61 09/01/16 15:00 61 09/01/16 14:00 76 21 109/56 97 09/01/16 14:00 76 21 109/56 97 09/01/16 14:00 76 09/01/16 14:00 76 09/01/16 14:00 76 09/01/16 14:00 76 09/01/16 13:00 100 09/01/16 13:00 100 09/01/16 13:00 100 28 102/68 98 09/01/16 13:00 100 09/01/16 13:00 100 28 102/68 98 09/01/16 13:00 100 28 102/68 98 09/01/16 13:00 100 09/01/16 12:19 76 09/01/16 12:19 76 26 107/55 09/01/16 12:19 76 26 107/55 09/01/16 12:19 76 09/01/16 12:19 76 09/01/16 12:19 76 09/01/16 12:19 76 26 107/55 09/01/16 12:00 81 09/01/16 12:00 81 15 124/63 100 09/01/16 12:00 63 09/01/16 12:00 81 15 124/63 100 09/01/16 12:00 81 15 124/63 100 09/01/16 12:00 81 09/01/16 12:00 81 09/01/16 12:00 81 09/01/16 11:00 65 19 116/62 97 09/01/16 11:00 65 09/01/16 11:00 65 19 116/62 97 09/01/16 11:00 65 09/01/16 11:00 65 19 116/62 97 09/01/16 11:00 65 09/01/16 11:00 65 19 116/62 97 09/01/16 11:00 65 09/01/16 11:00 65 09/01/16 10:00 72 20 118/63 98 09/01/16 10:00 72 09/01/16 10:00 72 09/01/16 10:00 72 20 118/63 98 09/01/16 10:00 72 09/01/16 10:00 72 09/01/16 10:00 72 20 118/63 98 09/01/16 10:00 72 20 118/63 98 09/01/16 10:00 72 09/01/16 09:00 94 09/01/16 09:00 94 119/59 09/01/16 09:00 94 09/01/16 09:00 94 09/01/16 09:00 94 119/59 09/01/16 09:00 94 09/01/16 09:00 94 09/01/16 09:00 94 119/59 09/01/16 09:00 94 119/59 09/01/16 08:40 95 09/01/16 08:00 108/63 09/01/16 08:00 108/63 09/01/16 08:00 108/63 09/01/16 08:00 108/63 09/01/16 06:00 61 09/01/16 05:00 66 09/01/16 04:03 56 33 108/57 99 09/01/16 04:03 56 09/01/16 04:00 98.6 65 27 09/01/16 04:00 65 09/01/16 03:01 70 09/01/16 03:01 70 30 123/72 98 09/01/16 03:00 72 09/01/16 03:00 72 26 98 09/01/16 02:00 58 19 95/50 09/01/16 02:00 58 09/01/16 01:00 58 09/01/16 01:00 58 24 104/55 09/01/16 00:00 59 09/01/16 00:00 97.9 59 21 104/59 08/31/16 23:00 56 41 106/62 08/31/16 23:00 56 08/31/16 22:00 63 08/31/16 22:00 63 20 97/54 08/31/16 21:01 97 28 103/76 08/31/16 21:01 97 08/31/16 21:00 89 08/31/16 21:00 89 24 Exam Comments Pt asleep No abnormal motor activity noted Objective Micro and Labs Laboratory Tests Test 09/01/16 06:23 Phenobarbital Level 15.3 Roc Zamarripa. PhD Sep 01, 2016 20:54
[2016-09-01] MEDS: LACOSAMIDE 100 MG TAB PO SCH (22:27)
[2016-09-01] MEDS: LORazepam 2 MG/ML VIAL IV PUSH PRN (23:16)
[2016-09-02] VITALS (7 sets, daily range): BP systolic 91–110; BP diastolic 54–70; PULSE 65–80; RESP 16–18; TEMP 97.6–98.2; O2SAT 94–99
[2016-09-02] MEDS: CHLORHEXIDINE GLUCONATE 2 % 1 PACK (2 CLOTHS) TOP SCH (04:00)
[2016-09-02 07:37] LABS: BICARBONATE 21.1 MEQ/L (21.0-32.0); POTASSIUM 3.5 MEQ/L (3.5-5.1)
[2016-09-02] MEDS: ATENOLOL 25 MG TAB PO SCH (09:00)
[2016-09-02] MEDS: DOCUSATE SODIUM 50 MG/SENNA 8.6 MG TAB PO SCH ×3 (09:00→20:54)
[2016-09-02] MEDS: clonazePAM 0.5 MG TAB PO SCH ×3 (09:00→17:01)
[2016-09-02] MEDS: LACOSAMIDE 100 MG TAB PO SCH ×2 (09:27→20:54)
[2016-09-02] MEDS: CLOBAZAM PO SCH ×2 (09:28→20:55)
[2016-09-02] MEDS: TOPIRAMATE 100 MG TAB PO SCH ×3 (09:28→17:01)
[2016-09-02] MEDS: predniSONE 20 MG TAB PO SCH ×2 (09:28→20:55)
[2016-09-02] MEDS: SODIUM CHLORIDE 0.9% FLUSH 10 ML FLUSH IV FLUSH SCH ×2 (09:29→20:55)
[2016-09-02] MEDS: SODIUM CHLOR 0.9% 1000 ML INJ 1,000 ML IV SCH ×2 (09:29→17:02)
--- NOTE | 2016-09-02 13:01 | HHI.PR ---
Subjective Remarks Patient is not acting normal today. She reports that phenytoin and Tegretol have caused her problems in the past which included hallucinations. She is not very lucid when I discussed this with her and am uncertain how true this is. She is not ambulatory. Objective Vital Signs Date Time Temp Pulse Resp B/P Pulse Ox O2 Delivery O2 Flow Rate FiO2 09/02/16 08:00 Room Air 09/02/16 08:00 98.1 73 16 91/54 94 09/02/16 05:39 98.2 65 18 110/70 97 09/02/16 00:00 98.2 65 18 110/70 97 09/01/16 21:00 Room Air 09/01/16 21:00 65 09/01/16 20:00 99.6 62 16 99/65 96 09/01/16 18:58 Room Air 09/01/16 17:15 98.2 62 20 92/56 100 09/01/16 16:07 64 09/01/16 16:07 91/51 09/01/16 15:00 61 23 107/52 09/01/16 15:00 61 09/01/16 15:00 61 23 107/52 09/01/16 15:00 61 09/01/16 15:00 61 09/01/16 14:00 76 21 109/56 97 09/01/16 14:00 76 21 109/56 97 09/01/16 14:00 76 09/01/16 14:00 76 09/01/16 14:00 76 09/01/16 14:00 76 09/01/16 13:00 100 09/01/16 13:00 100 09/01/16 13:00 100 28 102/68 98 09/01/16 13:00 100 09/01/16 13:00 100 28 102/68 98 09/01/16 13:00 100 28 102/68 98 09/01/16 13:00 100 I/O 09/01/16 09/01/16 09/01/16 09/02/16 09/02/16 09/02/16 07:00 15:00 23:00 07:00 15:00 23:00 Intake Total 782 ml 1373 ml 500 ml 1171 ml Output Total 900 ml 900 ml Balance 782 ml 473 ml 500 ml 271 ml Intake Oral 0 ml 450 ml 500 ml 360 ml IV Total 782 ml 923 ml 811 ml Output Urine Total 900 ml 900 ml # Voids 2 2 # Bowel Movements 0 0 0 Result Diagram: 08/31/16 1132 09/02/16 0617 Objective Remarks GENERAL: NAD, A&Ox2 HEAD: Normocephalic. NECK: Supple, trachea midline. No lymphadenopathy. EYES: No scleral icterus. No injection or drainage. CARDIOVASCULAR: Regular rate and rhythm without murmurs, gallops, or rubs. RESPIRATORY: Breath sounds equal bilaterally. No accessory muscle use. GASTROINTESTINAL: Abdomen soft, non-tender, nondistended. MUSCULOSKELETAL: No cyanosis, or edema. SKIN: Warm and dry. NEURO: No focal neurological deficitis. Unstable gait. Medications and IVs Administered Medications Medications (Trade) Dose Ordered Sig/Dorothy Route PRN Reason Start Time Stop Time Status Last Admin Dose Admin Miscellaneous Information 1 Q361D XX 08/27/16 23:00 08/27/16 23:00 Chlorhexidine Gluconate Taper DAILY@04 TOP 08/28/16 04:00 08/24/17 03:59 08/31/16 21:22 Sodium Chloride (NS 1000 ml Inj) 1,000 ml @ 100 mls/hr Q10H IV 08/27/16 22:51 09/02/16 09:29 Sodium Chloride (NS Flush) 2 ml UNSCH PRN IV FLUSH FLUSH AFTER USING IV ACCESS 08/27/16 23:00 08/29/16 09:45 Sodium Chloride (NS Flush) 2 ml BID IV FLUSH 08/28/16 09:00 09/02/16 09:29 Senna/Docusate Sodium (Velma-Colace) 1 tab BID PO 08/28/16 09:00 09/01/16 22:26 Lorazepam (Ativan Inj) 1 mg Q5M PRN IV PUSH SEIZURE 08/27/16 23:00 09/01/16 23:16 Atenolol (Tenormin) 25 mg DAILY PO 08/29/16 09:00 09/01/16 08:21 Prednisone (Deltasone) 20 mg BID PO 08/28/16 21:00 09/02/16 09:28 Clonazepam (KlonoPIN) 0.5 mg TID PO 08/28/16 19:00 09/01/16 17:45 Non-Formulary Medication ONFI (CLOBAZAM) 20 MG... BID PO 08/30/16 14:30 09/02/16 09:28 Topiramate (Topamax) 100 mg TID PO 08/30/16 18:00 09/02/16 09:28 Lacosamide (Vimpat) 400 mg BID PO 09/01/16 22:00 09/02/16 09:27 Phenobarbital (PHENobarbital) 60 mg Q8HR PO 09/01/16 22:00 09/02/16 06:45 A/P Problem List: (1) Adjustment disorder with mixed disturbance of emotions and conduct ICD Code: F43.25 (2) Status epilepticus ICD Code: G40.901 (3) Seizure disorder ICD Code: G40.909 (4) Anaphylaxis ICD Code: T78.2XXA (5) Hypokalemia ICD Code: E87.6 Assessment and Plan Assessment and Plan 21-year-old female with a PMH of Seizure Disorder admitted for breakthrough seizures. Acute status epilepticus Resolved Follow for recurrent seizures Seizure disorder Neurology following Lacosamide IV 200mg Q6hrs. Phenobarbital IV When necessary IV Ativan for seizure activity Follow-up for seizure activity Patient has refused transfer to [facility] for continuous EEG monitoring Hypokalemia Monitor and replace as needed History of Anaphylaxis Use epinephrine of anaphylaxis occurs. Avoid pumpkin seeds as this is her trigger in the past DVT prophylaxis SCDs . Discharge Planning Patient will need to improve her ambulation and cognitive status prior to discharge Barry Oneill MD Sep 02, 2016 13:01
--- NOTE | 2016-09-02 20:48 | HHI.PR ---
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 Concerned that some may be pseudoseizures No sz today, but probably having side effects of anticonvulsants Plan Change anticonvulsant medication to po form Reduce phenobarbital EEG in (pt states she will agree to have one done) Diagnosis/Plan: Subjective Subjective Comments No acute events reported No seizures Pt lethargic and c/o balance difficulty Active Medications Current Medications Medications (Trade) Dose Ordered Sig/Dorothy Route Start Time Stop Time Status Last Admin Miscellaneous Information 1 Q361D XX 08/27/16 23:00 08/27/16 23:00 (Chlorhexidine 2% Cloth) Taper DAILY@04 TOP 08/28/16 04:00 08/24/17 03:59 08/31/16 21:22 Chlorhexidine Gluconate 3 pack 3 pack UNSCH PRN TOP 08/27/16 23:00 (NS 1000 ml Inj) 1,000 ml @ 100 mls/hr Q10H IV 08/27/16 22:51 09/02/16 17:02 (NS Flush) 2 ml UNSCH PRN IV FLUSH 08/27/16 23:00 08/29/16 09:45 (NS Flush) 2 ml BID IV FLUSH 08/28/16 09:00 09/02/16 09:29 (Velma-Colace) 1 tab BID PO 08/28/16 09:00 09/01/16 22:26 (Milk Of Magnesia Liq) 30 ml Q12H PRN PO 08/27/16 23:00 (Senokot) 17.2 mg Q12H PRN PO 08/27/16 23:00 (Dulcolax Supp) 10 mg DAILY PRN RECTAL 08/27/16 23:00 (Lactulose Liq) 30 ml DAILY PRN PO 08/27/16 23:00 (Ativan Inj) 1 mg Q5M PRN IV PUSH 08/27/16 23:00 09/01/16 23:16 Patient Own Medication PT OWN MED: JOHNY GRANADO... DAILY INH 08/29/16 09:00 Hold (Tenormin) 25 mg DAILY PO 08/29/16 09:00 09/01/16 08:21 (Deltasone) 20 mg BID PO 08/28/16 21:00 09/02/16 09:28 (Benadryl) 25 mg Q6H PRN PO 08/28/16 13:30 (KlonoPIN) 0.5 mg TID PO 08/28/16 19:00 09/02/16 17:01 (Compazine Inj) 5 mg Q6H PRN IV PUSH 08/29/16 15:00 Non-Formulary Medication ONFI (CLOBAZAM) 20 MG... BID PO 08/30/16 14:30 09/02/16 09:28 (Topamax) 100 mg TID PO 08/30/16 18:00 09/02/16 17:01 (Vimpat) 400 mg BID PO 09/01/16 22:00 09/02/16 09:27 (PHENobarbital) 60 mg Q8HR PO 09/01/16 22:00 09/02/16 14:16 Allergies Allergies Coded Allergies Dilantin (Verified Allergy, Severe, Seizures, 08/26/16) Keppra (Verified Allergy, Severe, Seizures, 08/26/16) PEANUTS (Verified Allergy, Severe, ANAPHYLAXIS, 08/28/16) Penicillin (Verified Allergy, Severe, Anaphylaxis, 08/26/16) Pineapple (Verified Allergy, Severe, ANAPHYLAXIS, 08/28/16) Zofran (Verified Allergy, Severe, Hives, 08/26/16) Gluten (Verified Allergy, Intermediate, 08/28/16) Dairy (Verified Allergy, Mild, 08/28/16) Exam I&O / VS 09/01/16 09/01/16 09/02/16 15:00 23:00 07:00 Intake Total 1373 ml 500 ml 1171 ml Output Total 900 ml 900 ml Balance 473 ml 500 ml 271 ml Intake Oral 450 ml 500 ml 360 ml IV Total 923 ml 811 ml Output Urine Total 900 ml 900 ml # Voids 2 # Bowel Movements 0 0 Vital Signs Date Time Temp Pulse Resp B/P Pulse Ox O2 Delivery O2 Flow Rate FiO2 09/02/16 16:00 98.1 78 16 97/57 96 09/02/16 12:00 97.6 70 16 91/54 99 09/02/16 08:00 80 09/02/16 08:00 Room Air 09/02/16 08:00 98.1 73 16 91/54 94 09/02/16 05:39 98.2 65 18 110/70 97 09/02/16 00:00 98.2 65 18 110/70 97 09/01/16 21:00 Room Air 09/01/16 21:00 65 Exam Comments lethargic but arousable oriented and follows conversation normally Cn intact Motor no focal deficits Objective Micro and Labs Laboratory Tests Test 09/02/16 06:17 Sodium Level 136 Potassium Level 3.5 Chloride Level 106 Carbon Dioxide Level 21.1 Anion Gap 9 Blood Urea Nitrogen 12 Creatinine 0.83 Estimat Glomerular Filtration 86 Rate Random Glucose 126 Calcium Level 8.4 Roc Zamarripa PhD Sep 02, 2016 20:48
[2016-09-03] VITALS (7 sets, daily range): BP systolic 92–102; BP diastolic 50–63; PULSE 59–83; RESP 16–18; TEMP 97.6–98.6; O2SAT 98–100
[2016-09-03] MEDS: CHLORHEXIDINE GLUCONATE 2 % 1 PACK (2 CLOTHS) TOP SCH (03:11)
[2016-09-03] MEDS: SODIUM CHLOR 0.9% 1000 ML INJ 1,000 ML IV SCH ×2 (04:51→15:15)
[2016-09-03] MEDS: ATENOLOL 25 MG TAB PO SCH (09:00)
[2016-09-03] MEDS: SODIUM CHLORIDE 0.9% FLUSH 10 ML FLUSH IV FLUSH SCH ×2 (09:00→20:41)
[2016-09-03] MEDS: CLOBAZAM PO SCH ×2 (09:00→20:41)
[2016-09-03] MEDS: LACOSAMIDE 100 MG TAB PO SCH ×2 (09:42→21:00)
[2016-09-03] MEDS: predniSONE 20 MG TAB PO SCH ×2 (09:42→20:40)
[2016-09-03] MEDS: TOPIRAMATE 100 MG TAB PO SCH ×3 (09:42→17:30)
[2016-09-03] MEDS: DOCUSATE SODIUM 50 MG/SENNA 8.6 MG TAB PO SCH ×2 (09:42→20:40)
[2016-09-03] MEDS: clonazePAM 0.5 MG TAB PO SCH ×3 (09:43→17:30)
--- NOTE | 2016-09-03 12:10 | HHI.PR ---
Subjective Remarks Follow-up for seizure. Pt seen and examined. Pt did not respond to her name being called or gentle shaking; appeared to be sleeping. Per pt's RN (Elaine) pt had a "seizure" at approximately 1000. Pt is reported to be "acting like she is sedated." RN stated pt as awake and alert prior to the above noted event. Pt is reported to have told nursing she is "a vegan" yet when a vegan breakfast tray was brought pt is reported to have told RN she is not a vegan and requested a regular tray. No changes reported over night. VSS Objective Vitals Vital Signs Date Time Temp Pulse Resp B/P Pulse Ox O2 Delivery O2 Flow Rate FiO2 09/03/16 09:55 97.6 59 18 96/63 09/03/16 09:00 97.9 59 18 94/63 98 09/03/16 08:00 Room Air 09/03/16 08:00 63 09/03/16 05:03 97.7 68 16 97/56 99 09/03/16 04:00 Room Air 09/03/16 00:00 Room Air 09/02/16 23:17 97.8 71 16 94/58 98 09/02/16 22:16 Room Air 09/02/16 21:00 75 09/02/16 16:00 98.1 78 16 97/57 96 09/02/16 12:00 97.6 70 16 91/54 99 I/O 09/02/16 09/02/16 09/02/16 09/03/16 09/03/16 09/03/16 07:00 15:00 23:00 07:00 15:00 23:00 Intake Total 1171 ml 1189 ml 1190 ml Output Total 900 ml 550 ml Balance 271 ml 1189 ml 640 ml Intake Oral 360 ml 480 ml 0 ml IV Total 811 ml 709 ml 1190 ml Output Urine Total 900 ml 550 ml # Voids 2 # Bowel Movements 0 0 0 Result Diagram: 08/31/16 1132 09/02/16 0617 Imaging Last Impressions Head CT 08/29/16 0000 Signed Impressions: Service Date/Time: Monday, August 29, 2016 17:39 - CONCLUSION: Negative noncontrast CT brain. Vamsi Jaime MD Cervical Spine CT 6/9/17 2108 Signed Impressions: Service Date/Time: Saturday, August 27, 2016 21:43 - CONCLUSION: Normal examination for a patient of this age. Richy Williamson MD Objective Remarks GENERAL: Pt encountered laying a bed, seemingly a sleep. NAD. SKIN: Warm and dry. HEAD: Normocephalic. EYES: No scleral icterus. No injection or drainage. NECK: Supple, trachea midline. No lymphadenopathy. Patent airway. CARDIOVASCULAR: Regular rate and rhythm without murmurs, gallops, or rubs. RESPIRATORY: Breath sounds equal bilaterally; shallow breathing noted. No accessory muscle use. GASTROINTESTINAL: Abdomen soft, non-tender, nondistended. MUSCULOSKELETAL: No cyanosis, or edema. Cast noted on right forearm. PSYCHIATRIC: Pt seemingly asleep or post-ictal. Not responsive to name calling or genlt attempt to awaken her. Appeared comfortable. Procedures None Medications and IVs Current Medications Medications (Trade) Dose Ordered Sig/Dorothy Route Start Time Stop Time Status Last Admin Miscellaneous Information 1 Q361D XX 08/27/16 23:00 08/27/16 23:00 (Chlorhexidine 2% Cloth) Taper DAILY@04 TOP 08/28/16 04:00 08/24/17 03:59 08/31/16 21:22 Chlorhexidine Gluconate 3 pack 3 pack UNSCH PRN TOP 08/27/16 23:00 (NS 1000 ml Inj) 1,000 ml @ 100 mls/hr Q10H IV 08/27/16 22:51 09/03/16 04:51 (NS Flush) 2 ml UNSCH PRN IV FLUSH 08/27/16 23:00 08/29/16 09:45 (NS Flush) 2 ml BID IV FLUSH 08/28/16 09:00 09/02/16 20:55 (Velma-Colace) 1 tab BID PO 08/28/16 09:00 09/03/16 09:42 (Milk Of Magnesia Liq) 30 ml Q12H PRN PO 08/27/16 23:00 (Senokot) 17.2 mg Q12H PRN PO 08/27/16 23:00 (Dulcolax Supp) 10 mg DAILY PRN RECTAL 08/27/16 23:00 (Lactulose Liq) 30 ml DAILY PRN PO 08/27/16 23:00 (Ativan Inj) 1 mg Q5M PRN IV PUSH 08/27/16 23:00 09/01/16 23:16 Patient Own Medication PT OWN MED: JOHNY VALDIVIAI... DAILY INH 08/29/16 09:00 Hold (Tenormin) 25 mg DAILY PO 08/29/16 09:00 09/01/16 08:21 (Deltasone) 20 mg BID PO 08/28/16 21:00 09/03/16 09:42 (Benadryl) 25 mg Q6H PRN PO 08/28/16 13:30 (KlonoPIN) 0.5 mg TID PO 08/28/16 19:00 09/03/16 09:43 (Compazine Inj) 5 mg Q6H PRN IV PUSH 08/29/16 15:00 Non-Formulary Medication ONFI (CLOBAZAM) 20 MG... BID PO 08/30/16 14:30 09/03/16 09:00 (Topamax) 100 mg TID PO 08/30/16 18:00 09/03/16 09:42 (Vimpat) 400 mg BID PO 09/01/16 22:00 09/03/16 09:42 (PHENobarbital) 60 mg BID PO 09/02/16 21:00 09/03/16 09:42 Urinary Catheter: No Vascular Central Line Catheter: No A/P Problem List: (1) Seizure disorder ICD Code: G40.909 Status: Acute (2) Status epilepticus ICD Code: G40.901 Status: Acute (3) Hypokalemia ICD Code: E87.6 Status: Acute (4) Anaphylaxis ICD Code: T78.2XXA Status: Acute Assessment and Plan 21-year-old female with a PMH of Seizure Disorder admitted for breakthrough seizures. Acute status epilepticus -Resolved -Follow for recurrent seizures Seizure disorder -Neurology following -Lacosamide IV 200mg Q6hrs. -Phenobarbital IV (frequency decreased from q 8 Hrs to BID on 09/02) -When necessary IV Ativan for seizure activity -Follow-up for seizure activity -Patient has refused transfer to [place] for continuous EEG monitoring -PT has not seen pt to address ambulation issues Hypokalemia -Monitor and replace as needed History of Anaphylaxis -Use epinephrine of anaphylaxis occurs. -Avoid pumpkin seeds as this is her trigger in the past DVT prophylaxis SCDs . Case discussed with RN (Elaine) and Dr. Oneill. Discharge Planning Patient will need to improve her ambulation and cognitive status prior to discharge Kapil Eason Jr. Sep 03, 2016 12:10
--- NOTE | 2016-09-03 16:01 | MG ---
cc: ALCIDES EL M.D. Lab No: [id number] Date: Age: 21 Sex: F Race: REFERRING: [place]. ROOM: 1418. With hyperventilation and photic stimulation omitted due to very lethargic uncooperative. CT is negative. Admitted for possible seizures. History also of hypertension, asthma, anxiety on Femara, phenobarbital, Vimpat, atenolol and prednisone. DESCRIPTION OF RECORD: There is quite a bit of artifact noted from movement but overall background seems to be 4-5 Hz at times. This patient is moving about, covering up, lying on the left and really not paying attention or listening to the scheme technician's direction but no overt epileptic activity is observed. Photic stimulation was initiated at the end with a driving response. IMPRESSION: Overall mild to moderate slowing is seen. Possible encephalopathic process. No epileptiform features. Clinical correlation. MD MICHAEL Rai/ZARA /2:15 PM /3:58 PM
--- NOTE | 2016-09-03 18:25 | HHI.PR ---
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 Concerned that some may be pseudoseizures No sz today, but probably having side effects of anticonvulsants Plan Change anticonvulsant medication to po form stop phenobarbital. If no seizures and confusion,lethargy improve consider discharge Diagnosis/Plan: Subjective Subjective Comments No acute events reported No seizures Pt feels confused, lethargic--thinks it is due to phenobarbital as she had similar reactions to it in the past Active Medications Current Medications Medications (Trade) Dose Ordered Sig/Dorothy Route Start Time Stop Time Status Last Admin Miscellaneous Information 1 Q361D XX 08/27/16 23:00 08/27/16 23:00 (Chlorhexidine 2% Cloth) Taper DAILY@04 TOP 08/28/16 04:00 08/24/17 03:59 08/31/16 21:22 Chlorhexidine Gluconate 3 pack 3 pack UNSCH PRN TOP 08/27/16 23:00 (NS 1000 ml Inj) 1,000 ml @ 100 mls/hr Q10H IV 08/27/16 22:51 09/03/16 15:15 (NS Flush) 2 ml UNSCH PRN IV FLUSH 08/27/16 23:00 08/29/16 09:45 (NS Flush) 2 ml BID IV FLUSH 08/28/16 09:00 09/02/16 20:55 (Velma-Colace) 1 tab BID PO 08/28/16 09:00 09/03/16 09:42 (Milk Of Magnesia Liq) 30 ml Q12H PRN PO 08/27/16 23:00 (Senokot) 17.2 mg Q12H PRN PO 08/27/16 23:00 (Dulcolax Supp) 10 mg DAILY PRN RECTAL 08/27/16 23:00 (Lactulose Liq) 30 ml DAILY PRN PO 08/27/16 23:00 (Ativan Inj) 1 mg Q5M PRN IV PUSH 08/27/16 23:00 09/01/16 23:16 Patient Own Medication PT OWN MED: JOHNY VALDIVIAI... DAILY INH 08/29/16 09:00 Hold (Tenormin) 25 mg DAILY PO 08/29/16 09:00 09/01/16 08:21 (Deltasone) 20 mg BID PO 08/28/16 21:00 09/03/16 09:42 (Benadryl) 25 mg Q6H PRN PO 08/28/16 13:30 (KlonoPIN) 0.5 mg TID PO 08/28/16 19:00 09/03/16 17:30 (Compazine Inj) 5 mg Q6H PRN IV PUSH 08/29/16 15:00 Non-Formulary Medication ONFI (CLOBAZAM) 20 MG... BID PO 08/30/16 14:30 09/03/16 09:00 (Topamax) 100 mg TID PO 08/30/16 18:00 09/03/16 17:30 (Vimpat) 400 mg BID PO 09/01/16 22:00 09/03/16 09:42 (PHENobarbital) 60 mg BID PO 09/02/16 21:00 09/03/16 09:42 Allergies Allergies Coded Allergies Dilantin (Verified Allergy, Severe, Seizures, 08/26/16) Keppra (Verified Allergy, Severe, Seizures, 08/26/16) PEANUTS (Verified Allergy, Severe, ANAPHYLAXIS, 08/28/16) Penicillin (Verified Allergy, Severe, Anaphylaxis, 08/26/16) Pineapple (Verified Allergy, Severe, ANAPHYLAXIS, 08/28/16) Zofran (Verified Allergy, Severe, Hives, 08/26/16) Gluten (Verified Allergy, Intermediate, 08/28/16) Dairy (Verified Allergy, Mild, 08/28/16) Exam I&O / VS 09/02/16 09/02/16 09/03/16 15:00 23:00 07:00 Intake Total 1189 ml 1190 ml Output Total 550 ml Balance 1189 ml 640 ml Intake Oral 480 ml 0 ml IV Total 709 ml 1190 ml Output Urine Total 550 ml # Voids 2 # Bowel Movements 0 0 Vital Signs Date Time Temp Pulse Resp B/P Pulse Ox O2 Delivery O2 Flow Rate FiO2 09/03/16 16:34 Room Air 09/03/16 16:00 97.8 83 18 102/61 100 09/03/16 12:30 98.0 61 18 92/53 100 09/03/16 12:00 Room Air 09/03/16 09:55 97.6 59 18 96/63 09/03/16 09:00 97.9 59 18 94/63 98 09/03/16 08:00 Room Air 09/03/16 08:00 63 09/03/16 05:03 97.7 68 16 97/56 99 09/03/16 04:00 Room Air 09/03/16 00:00 Room Air 09/02/16 23:17 97.8 71 16 94/58 98 09/02/16 22:16 Room Air 09/02/16 21:00 75 Exam Comments lethargic but arousable--more alert today oriented and follows conversation normally Cn intact Motor no focal deficits Roc Zamarripa PhD Sep 03, 2016 18:24
[2016-09-04] VITALS (7 sets, daily range): BP systolic 88–102; BP diastolic 50–56; PULSE 61–86; RESP 18–24; TEMP 97.4–97.9; O2SAT 97–99
[2016-09-04] MEDS ORDERED: SODIUM CHLOR 0.9% 1000 ML INJ 1,000 ML IV ONE (01:00)
[2016-09-04] MEDS: SODIUM CHLOR 0.9% 1000 ML INJ 1,000 ML IV SCH ×3 (01:09→20:38)
[2016-09-04] MEDS: CHLORHEXIDINE GLUCONATE 2 % 1 PACK (2 CLOTHS) TOP SCH (03:48)
[2016-09-04] MEDS: DOCUSATE SODIUM 50 MG/SENNA 8.6 MG TAB PO SCH ×2 (08:06→20:36)
[2016-09-04] MEDS: LACOSAMIDE 100 MG TAB PO SCH ×2 (08:06→20:37)
[2016-09-04] MEDS: ATENOLOL 25 MG TAB PO SCH (08:07)
[2016-09-04] MEDS: clonazePAM 0.5 MG TAB PO SCH ×3 (08:07→17:49)
[2016-09-04] MEDS: predniSONE 20 MG TAB PO SCH ×2 (08:07→20:36)
[2016-09-04] MEDS: CLOBAZAM PO SCH ×2 (08:07→20:37)
[2016-09-04] MEDS: SODIUM CHLORIDE 0.9% FLUSH 10 ML FLUSH IV FLUSH SCH ×2 (08:07→20:38)
[2016-09-04] MEDS: TOPIRAMATE 100 MG TAB PO SCH ×3 (08:09→17:49)
--- NOTE | 2016-09-04 12:35 | HHI.PR ---
Subjective Remarks Follow-up for seizure. Pt seen and examined. Pt did not respond to her name being called or gentle shaking; appeared to be sleeping. Per pt's RN (Emma) reported pt awake and alert early in shift. RN reported declined some medication yet was accepting of benzodiazepines and Vimpat RN stated pt was inquiring about physical therapy but declined their services when they came to pt's room. Pt's SUPERVISOR SHAVING [employer] SPLITTING (Jaime) reported pt had been asking for food early in the shift and used bedside commode. He reported pt was "unsteady" on her feet. RN reported pt's purse was searched last evening and found to have IV valium and unknown sleeping pills. Reportedly those items were taken away for safe keeping. VSS Objective Vitals Vital Signs Date Time Temp Pulse Resp B/P Pulse Ox O2 Delivery O2 Flow Rate FiO2 09/04/16 08:00 97.5 67 20 95/54 98 09/04/16 04:00 97.8 76 24 102/56 98 09/04/16 00:00 97.4 81 18 88/50 97 09/03/16 20:10 Room Air 09/03/16 20:00 98.6 76 18 95/50 99 09/03/16 20:00 80 09/03/16 16:34 Room Air 09/03/16 16:00 97.8 83 18 102/61 100 09/03/16 12:30 98.0 61 18 92/53 100 I/O 09/03/16 09/03/16 09/03/16 09/04/16 09/04/16 09/04/16 07:00 15:00 23:00 07:00 15:00 23:00 Intake Total 1190 ml 700 ml 1375 ml 240 ml Output Total 550 ml 600 ml 1300 ml 1700 ml Balance 640 ml 100 ml 75 ml -1460 ml Intake Oral 0 ml 700 ml 480 ml 240 ml IV Total 1190 ml 895 ml Output Urine Total 550 ml 600 ml 1300 ml 1700 ml # Bowel Movements 0 0 0 Result Diagram: 08/31/16 1132 09/02/16 0617 Other Results EEG final report pending. Imaging Last Impressions Head CT 08/29/16 0000 Signed Impressions: Service Date/Time: Monday, August 29, 2016 17:39 - CONCLUSION: Negative noncontrast CT brain. Vamsi Jaime MD Cervical Spine CT 08/27/162107 Signed Impressions: Service Date/Time: Saturday, August 27, 2016 21:43 - CONCLUSION: Normal examination for a patient of this age. Richy Williamson MD Objective Remarks GENERAL: Pt encountered laying a bed, seemingly a sleep. NAD. SKIN: Warm and dry. Tattoo noted on left wrist HEAD: Normocephalic. EYES: Pt with glasses in place. No drainage. NECK: Supple, trachea midline. No lymphadenopathy. Patent airway. CARDIOVASCULAR: Regular rate and rhythm without murmurs, gallops, or rubs. RESPIRATORY: Breath sounds equal bilaterally; shallow breathing noted. No accessory muscle use. GASTROINTESTINAL: Abdomen soft, non-tender, nondistended. MUSCULOSKELETAL: No cyanosis, or edema. Cast noted on right forearm. PSYCHIATRIC: Pt seemingly asleep. Not responsive to name calling or gentle attempt to awaken her. Appeared comfortable. Procedures None Medications and IVs Current Medications Medications (Trade) Dose Ordered Sig/Dorothy Route Start Time Stop Time Status Last Admin Miscellaneous Information 1 Q361D XX 08/27/16 23:00 08/27/16 23:00 (Chlorhexidine 2% Cloth) Taper DAILY@04 TOP 08/28/16 04:00 08/24/17 03:59 08/31/16 21:22 Chlorhexidine Gluconate 3 pack 3 pack UNSCH PRN TOP 08/27/16 23:00 (NS 1000 ml Inj) 1,000 ml @ 100 mls/hr Q10H IV 08/27/16 22:51 09/04/16 01:09 (NS Flush) 2 ml UNSCH PRN IV FLUSH 08/27/16 23:00 08/29/16 09:45 (NS Flush) 2 ml BID IV FLUSH 08/28/16 09:00 09/04/16 08:07 (Velma-Colace) 1 tab BID PO 08/28/16 09:00 09/04/16 08:06 (Milk Of Magnesia Liq) 30 ml Q12H PRN PO 08/27/16 23:00 (Senokot) 17.2 mg Q12H PRN PO 08/27/16 23:00 (Dulcolax Supp) 10 mg DAILY PRN RECTAL 08/27/16 23:00 (Lactulose Liq) 30 ml DAILY PRN PO 08/27/16 23:00 (Ativan Inj) 1 mg Q5M PRN IV PUSH 08/27/16 23:00 09/01/16 23:16 Patient Own Medication PT OWN MED: JOHNY GRANADO... DAILY INH 08/29/16 09:00 Hold (Tenormin) 25 mg DAILY PO 08/29/16 09:00 09/04/16 08:07 (Deltasone) 20 mg BID PO 08/28/16 21:00 09/03/16 20:40 (Benadryl) 25 mg Q6H PRN PO 08/28/16 13:30 (KlonoPIN) 0.5 mg TID PO 08/28/16 19:00 09/04/16 08:07 (Compazine Inj) 5 mg Q6H PRN IV PUSH 08/29/16 15:00 09/04/16 08:06 Non-Formulary Medication ONFI (CLOBAZAM) 20 MG... BID PO 08/30/16 14:30 09/04/16 08:07 (Topamax) 100 mg TID PO 08/30/16 18:00 09/03/16 17:30 (Vimpat) 400 mg BID PO 09/01/16 22:00 09/04/16 08:06 Urinary Catheter: No Vascular Central Line Catheter: No A/P Problem List: (1) Seizure disorder ICD Code: G40.909 Status: Acute (2) Status epilepticus ICD Code: G40.901 Status: Acute (3) Hypokalemia ICD Code: E87.6 Status: Acute (4) Anaphylaxis ICD Code: T78.2XXA Status: Acute Assessment and Plan 21-year-old female with a PMH of Seizure Disorder admitted for breakthrough seizures. Acute status epilepticus -Resolved -Follow for recurrent seizures Seizure disorder -Neurology following -Lacosamide IV 200mg Q6hrs. -Phenobarbital IV (frequency decreased from q 8 Hrs to BID on 09/02) -When necessary IV Ativan for seizure activity -Follow-up for seizure activity -Patient has refused transfer to [place] for continuous EEG monitoring -PT to address ambulation issues -Neurology has changed medication from IV to PO. Hypokalemia -Monitor and replace as needed History of Anaphylaxis -Use epinephrine of anaphylaxis occurs. -Avoid pumpkin seeds as this is her trigger in the past DVT prophylaxis SCDs . Case discussed with RN (Emma) and Dr. Oneill. Discharge Planning Patient will need to improve her ambulation and cognitive status prior to discharge Kapil Eason Jr. Sep 04, 2016 12:35
[2016-09-05] VITALS (17 sets, daily range): BP systolic 84–110; BP diastolic 45–62; PULSE 59–80; RESP 16–24; TEMP 97.7–98.2; O2SAT 86–100
[2016-09-05] MEDS: CHLORHEXIDINE GLUCONATE 2 % 1 PACK (2 CLOTHS) TOP SCH (04:00)
[2016-09-05] MEDS: SODIUM CHLOR 0.9% 1000 ML INJ 1,000 ML IV SCH ×2 (05:07→16:51)
[2016-09-05] MEDS: ATENOLOL 25 MG TAB PO SCH (09:02)
[2016-09-05] MEDS: LACOSAMIDE 100 MG TAB PO SCH ×2 (09:02→20:14)
[2016-09-05] MEDS: clonazePAM 0.5 MG TAB PO SCH ×4 (09:02→17:32)
[2016-09-05] MEDS: CLOBAZAM PO SCH ×2 (09:03→20:15)
[2016-09-05] MEDS: SODIUM CHLORIDE 0.9% FLUSH 10 ML FLUSH IV FLUSH SCH ×2 (09:03→20:16)
[2016-09-05] MEDS: DOCUSATE SODIUM 50 MG/SENNA 8.6 MG TAB PO SCH ×2 (09:04→20:15)
[2016-09-05] MEDS: predniSONE 20 MG TAB PO SCH ×2 (09:04→20:15)
[2016-09-05] MEDS: TOPIRAMATE 100 MG TAB PO SCH ×3 (09:11→17:33)
[2016-09-05] MEDS: LORazepam 2 MG/ML VIAL IV PUSH PRN (10:13)
--- NOTE | 2016-09-05 11:27 | HHI.PR ---
Subjective Remarks Follow-up for seizure. Pt seen and examined. Per Dr. Oneill and RN (Jenniffer) pt had a possible seizure at approximately 1015. Pt was reported by RN to be speaking with her, answering appropriately, then developed a "far away look" and had difficulty speaking, and had a contracted her left arm. This is reported to have occured for several moments and she improved and briefly answered questions. Shortly afterwards she began "flailing about" and a Carlie-cat was called. 1 mg of Ativan was administered. Per Dr. Oneill, pt's vitals remained stable during the episode. Upon current visit, pt was sitting upright in bed and did not respond to her name being called. Per [employer] COLLECTIONS PROFESSIONAL (Jaime), pt requested to use the bathroom and was reported to be unsteady walking the short distance to bedside commode. Pt was non-verbal during this visit. Objective Vitals Vital Signs Date Time Temp Pulse Resp B/P Pulse Ox O2 Delivery O2 Flow Rate FiO2 09/05/16 11:00 59 24 89/50 100 09/05/16 10:45 69 22 94/62 100 09/05/16 10:30 73 99/61 100 09/05/16 10:15 69 96/59 100 09/05/16 10:13 73 99/62 100 09/05/16 10:11 74 84/45 100 09/05/16 10:06 98.0 86 09/05/16 10:00 98 Venturi Mask 50 09/05/16 08:03 98.2 74 16 110/60 100 09/05/16 04:00 98.0 80 16 99/59 97 09/05/16 00:00 98.1 70 16 92/54 97 09/04/16 20:43 Room Air 09/04/16 20:00 97.9 86 20 97/52 98 09/04/16 20:00 75 09/04/16 16:00 97.7 74 20 100/55 99 09/04/16 15:30 Room Air 09/04/16 12:00 97.5 61 20 93/55 97 I/O 09/04/16 09/04/16 09/04/16 09/05/16 09/05/16 09/05/16 07:00 15:00 23:00 07:00 15:00 23:00 Intake Total 240 ml Output Total 1700 ml 700 ml Balance -1460 ml -700 ml Intake Oral 240 ml Output Urine Total 1700 ml 700 ml # Bowel Movements 0 Result Diagram: 09/02/16 0617 Imaging Last Impressions Head CT 08/29/16 0000 Signed Impressions: Service Date/Time: Monday, August 29, 2016 17:39 - CONCLUSION: Negative noncontrast CT brain. Vamsi Jaime MD Cervical Spine CT 08/27/16 2108 Signed Impressions: Service Date/Time: Saturday, August 27, 2016 21:43 - CONCLUSION: Normal examination for a patient of this age. Richy Williamson MD Objective Remarks GENERAL: Pt encountered sit up in bed, oxygen mask in place, SKIN: Warm and dry. Tattoo noted on left wrist and above left breast. HEAD: Normocephalic. EYES: Pt with glasses in place. No drainage. NECK: Supple, trachea midline. No lymphadenopathy. Patent airway. CARDIOVASCULAR: Regular rate and rhythm without murmurs, gallops, or rubs. RESPIRATORY: Breath sounds equal bilaterally; shallow breathing noted. No accessory muscle use. GASTROINTESTINAL: Abdomen soft, non-tender, nondistended. MUSCULOSKELETAL: No cyanosis, or edema. Cast noted on right forearm. PSYCHIATRIC: Pt awake, not responding to questions or tracking people in the room. Procedures EEG (09/03/16). Medications and IVs Current Medications Medications (Trade) Dose Ordered Sig/Dorothy Route Start Time Stop Time Status Last Admin Miscellaneous Information 1 Q361D XX 08/27/16 23:00 08/27/16 23:00 (Chlorhexidine 2% Cloth) Taper DAILY@04 TOP 08/28/16 04:00 08/24/17 03:59 08/31/16 21:22 Chlorhexidine Gluconate 3 pack 3 pack UNSCH PRN TOP 08/27/16 23:00 (NS 1000 ml Inj) 1,000 ml @ 100 mls/hr Q10H IV 08/27/16 22:51 09/05/16 05:07 (NS Flush) 2 ml UNSCH PRN IV FLUSH 08/27/16 23:00 08/29/16 09:45 (NS Flush) 2 ml BID IV FLUSH 08/28/16 09:00 09/04/16 20:38 (Velma-Colace) 1 tab BID PO 08/28/16 09:00 09/05/16 09:04 (Milk Of Magnesia Liq) 30 ml Q12H PRN PO 08/27/16 23:00 (Senokot) 17.2 mg Q12H PRN PO 08/27/16 23:00 (Dulcolax Supp) 10 mg DAILY PRN RECTAL 08/27/16 23:00 (Lactulose Liq) 30 ml DAILY PRN PO 08/27/16 23:00 (Ativan Inj) 1 mg Q5M PRN IV PUSH 08/27/16 23:00 09/05/16 10:13 Patient Own Medication PT OWN MED: BREO LOY... DAILY INH 08/29/16 09:00 Hold (Tenormin) 25 mg DAILY PO 08/29/16 09:00 09/05/16 09:02 (Deltasone) 20 mg BID PO 08/28/16 21:00 09/03/16 20:40 (Benadryl) 25 mg Q6H PRN PO 08/28/16 13:30 (KlonoPIN) 0.5 mg TID PO 08/28/16 19:00 09/05/16 09:02 (Compazine Inj) 5 mg Q6H PRN IV PUSH 08/29/16 15:00 09/04/16 08:06 Non-Formulary Medication ONFI (CLOBAZAM) 20 MG... BID PO 08/30/16 14:30 09/05/16 09:03 (Topamax) 100 mg TID PO 08/30/16 18:00 09/04/16 17:49 (Vimpat) 400 mg BID PO 09/01/16 22:00 09/05/16 09:02 Urinary Catheter: No Vascular Central Line Catheter: No A/P Problem List: (1) Seizure disorder ICD Code: G40.909 Status: Acute (2) Status epilepticus ICD Code: G40.901 Status: Acute (3) Hypokalemia ICD Code: E87.6 Status: Acute (4) Anaphylaxis ICD Code: T78.2XXA Status: Acute Assessment and Plan 21-year-old female with a PMH of Seizure Disorder admitted for breakthrough seizures. Acute status epilepticus -Resolved -Follow for recurrent seizures Seizure disorder -Neurology following -Lacosamide IV 200mg Q6hrs. -Phenobarbital IV (frequency decreased from q 8 Hrs to BID on 09/02) -When necessary IV Ativan for seizure activity -Follow-up for seizure activity -Patient has refused transfer to [place] for continuous EEG monitoring -PT to address ambulation issues -Neurology has changed medication from IV to PO. Hypokalemia -Monitor and replace as needed History of Anaphylaxis -Use epinephrine of anaphylaxis occurs. -Avoid pumpkin seeds as this is her trigger in the past DVT prophylaxis SCDs . Case discussed with RN (Jenniffer), COLLECTIONS PROFESSIONAL (Jaime) and Dr. Oneill. Discharge Planning Patient will need to improve her ambulation and cognitive status prior to discharge Kapil Eason Jr. Sep 05, 2016 11:27
[2016-09-06] VITALS (11 sets, daily range): BP systolic 79–106; BP diastolic 44–73; PULSE 61–131; RESP 16–20; TEMP 97.5–98.2; O2SAT 96–100
[2016-09-06] MEDS: CHLORHEXIDINE GLUCONATE 2 % 1 PACK (2 CLOTHS) TOP SCH (03:42)
[2016-09-06] MEDS: predniSONE 20 MG TAB PO SCH ×2 (09:00→21:00)
[2016-09-06] MEDS: TOPIRAMATE 100 MG TAB PO SCH ×3 (09:00→18:00)
[2016-09-06] MEDS: DOCUSATE SODIUM 50 MG/SENNA 8.6 MG TAB PO SCH ×2 (09:04→22:01)
[2016-09-06] MEDS: clonazePAM 0.5 MG TAB PO SCH ×3 (09:06→18:02)
[2016-09-06] MEDS: CLOBAZAM PO SCH ×2 (09:06→21:00)
[2016-09-06] MEDS: SODIUM CHLORIDE 0.9% FLUSH 10 ML FLUSH IV FLUSH SCH ×2 (09:07→21:00)
[2016-09-06] MEDS: ATENOLOL 25 MG TAB PO SCH (09:07)
[2016-09-06] MEDS: LACOSAMIDE 100 MG TAB PO SCH ×2 (09:07→22:00)
--- NOTE | 2016-09-06 10:31 | HHI.PR ---
Subjective Remarks This is a pleasant 21 y/o Female with Seizures, as per notes she had a seizure in am yesterday, medicined changed from IV to BY mouth by Neurology specialist, as per Specialist okay to discharge home on her actual medicines if no further seizure disorder and non confused, the patient was seen non confused and did have seizure yesterday, no nausea, vomit or diarrhea. Objective Vital Signs Date Time Temp Pulse Resp B/P Pulse Ox O2 Delivery O2 Flow Rate FiO2 09/06/16 08:10 76 09/06/16 08:10 Room Air 09/06/16 08:00 97.8 64 18 97/58 100 09/06/16 04:00 97.5 61 18 90/60 100 09/06/16 00:00 Nasal Cannula 3.00 09/06/16 00:00 97.9 66 16 90/60 98 09/05/16 20:47 72 09/05/16 20:00 97.8 75 18 106/58 100 09/05/16 20:00 Nasal Cannula 3.00 09/05/16 16:03 97.8 71 18 98/53 100 09/05/16 12:04 97.7 69 18 90/50 100 09/05/16 11:15 67 89/57 100 09/05/16 11:00 Nasal Cannula 3.00 09/05/16 11:00 59 24 89/50 100 09/05/16 10:45 69 22 94/62 100 09/05/16 10:30 73 99/61 100 I/O 09/05/16 09/05/16 09/05/16 09/06/16 09/06/16 09/06/16 07:00 15:00 23:00 07:00 15:00 23:00 Intake Total 420 ml 240 ml 240 ml Output Total 700 ml 600 ml 400 ml Balance -700 ml 420 ml -360 ml -160 ml Intake Oral 420 ml 240 ml 240 ml Output Urine Total 700 ml 600 ml 400 ml # Voids 3 # Bowel Movements 0 0 0 Result Diagram: 09/02/16 0617 Imaging Last Impressions Head CT 08/29/16 0000 Signed Impressions: Service Date/Time: Monday, August 29, 2016 17:39 - CONCLUSION: Negative noncontrast CT brain. Vamsi Jaime MD Cervical Spine CT 08/27/162107 Signed Impressions: Service Date/Time: Saturday, August 27, 2016 21:43 - CONCLUSION: Normal examination for a patient of this age. Richy Williamson MD Procedures EEG Other Results Laboratory Tests Test 09/02/16 06:17 Sodium Level 136 MEQ/L Potassium Level 3.5 MEQ/L Chloride Level 106 MEQ/L Carbon Dioxide Level 21.1 MEQ/L Anion Gap 9 MEQ/L Blood Urea Nitrogen 12 MG/DL Creatinine 0.83 MG/DL Estimat Glomerular Filtration 86 ML/MIN Rate Random Glucose 126 MG/DL Calcium Level 8.4 MG/DL Objective Remarks GENERAL: Pt encountered sit up in bed, oxygen mask in place, SKIN: Warm and dry. Tattoo noted on left wrist and above left breast. HEAD: Normocephalic. EYES: Pt with glasses in place. No drainage. NECK: Supple, trachea midline. No lymphadenopathy. Patent airway. CARDIOVASCULAR: Regular rate and rhythm without murmurs, gallops, or rubs. RESPIRATORY: Breath sounds equal bilaterally; shallow breathing noted. No accessory muscle use. GASTROINTESTINAL: Abdomen soft, non-tender, nondistended. MUSCULOSKELETAL: No cyanosis, or edema. Cast noted on right forearm. PSYCHIATRIC: Pt awake, not responding to questions or tracking people in the room. Medications and IVs Current Medications Medications (Trade) Dose Ordered Sig/Dorothy Route Start Time Stop Time Status Last Admin Miscellaneous Information 1 Q361D XX 08/27/16 23:00 08/27/16 23:00 (Chlorhexidine 2% Cloth) Taper DAILY@04 TOP 08/28/16 04:00 08/24/17 03:59 08/31/16 21:22 Chlorhexidine Gluconate 3 pack 3 pack UNSCH PRN TOP 08/27/16 23:00 (NS 1000 ml Inj) 1,000 ml @ 100 mls/hr Q10H IV 08/27/16 22:51 09/05/16 05:07 (NS Flush) 2 ml UNSCH PRN IV FLUSH 08/27/16 23:00 08/29/16 09:45 (NS Flush) 2 ml BID IV FLUSH 08/28/16 09:00 09/06/16 09:07 (Velma-Colace) 1 tab BID PO 08/28/16 09:00 09/06/16 09:04 (Milk Of Magnesia Liq) 30 ml Q12H PRN PO 08/27/16 23:00 (Senokot) 17.2 mg Q12H PRN PO 08/27/16 23:00 (Dulcolax Supp) 10 mg DAILY PRN RECTAL 08/27/16 23:00 (Lactulose Liq) 30 ml DAILY PRN PO 08/27/16 23:00 (Ativan Inj) 1 mg Q5M PRN IV PUSH 08/27/16 23:00 09/05/16 10:13 Patient Own Medication PT OWN MED: JOHNY LOY... DAILY INH 08/29/16 09:00 Hold (Tenormin) 25 mg DAILY PO 08/29/16 09:00 09/06/16 09:07 (Deltasone) 20 mg BID PO 08/28/16 21:00 09/03/16 20:40 (Benadryl) 25 mg Q6H PRN PO 08/28/16 13:30 (KlonoPIN) 0.5 mg TID PO 08/28/16 19:00 09/06/16 09:06 (Compazine Inj) 5 mg Q6H PRN IV PUSH 08/29/16 15:00 09/04/16 08:06 Non-Formulary Medication ONFI (CLOBAZAM) 20 MG... BID PO 08/30/16 14:30 09/06/16 09:06 (Topamax) 100 mg TID PO 08/30/16 18:00 09/04/16 17:49 (Vimpat) 400 mg BID PO 09/01/16 22:00 09/06/16 09:07 A/P Assessment and Plan 21-year-old female with a PMH of Seizure Disorder admitted for breakthrough seizures. Acute status epilepticus -Resolved Seizure disorder -Neurology following -Lacosamide IV 200mg Q6hrs. -Phenobarbital IV (frequency decreased from q 8 Hrs to BID on 09/02) -When necessary IV Ativan for seizure activity -Follow-up for seizure activity -Patient has refused transfer to [place] for continuous EEG monitoring -PT to address ambulation issues -Neurology has changed medication from IV to PO. and recommended discharge if no further Seizures in 24 hours. Adjustment disorder with mixed disturbance of emotions and conduct. History of Anaphylaxis -Use epinephrine of anaphylaxis occurs. -Avoid pumpkin seeds as this is her trigger in the past DVT prophylaxis SCDs Discharge Planning okay to discharge from Neurology specialist of no seizures in 24 hours and non confused, she had seizures yesterday John Starr MD Sep 06, 2016 10:31
[2016-09-06] MEDS: SODIUM CHLOR 0.9% 1000 ML INJ 1,000 ML IV SCH ×2 (11:52→22:01)
[2016-09-06] MEDS: LORazepam 2 MG/ML VIAL IV PUSH PRN ×2 (22:26→22:45)
[2016-09-07] MEDS: CHLORHEXIDINE GLUCONATE 2 % 1 PACK (2 CLOTHS) TOP SCH (03:06)
[2016-09-07 04:20] VITALS: BP 91/52; PULSE 79; RESP 16; TEMP 97.3; O2SAT 100
[2016-09-07 08:00] VITALS: BP 110/64; PULSE 93; RESP 18; TEMP 98.2; O2SAT 97
[2016-09-07] MEDS: SODIUM CHLOR 0.9% 1000 ML INJ 1,000 ML IV SCH (08:51)
[2016-09-07] MEDS: LACOSAMIDE 100 MG TAB PO SCH (08:56)
[2016-09-07] MEDS: TOPIRAMATE 100 MG TAB PO SCH ×2 (08:57→13:00)
[2016-09-07] MEDS: predniSONE 20 MG TAB PO SCH (08:57)
[2016-09-07] MEDS: DOCUSATE SODIUM 50 MG/SENNA 8.6 MG TAB PO SCH (08:58)
[2016-09-07] MEDS: clonazePAM 0.5 MG TAB PO SCH ×2 (08:58→13:11)
[2016-09-07] MEDS: ATENOLOL 25 MG TAB PO SCH (08:58)
[2016-09-07] MEDS: CLOBAZAM PO SCH (08:59)
[2016-09-07] MEDS: SODIUM CHLORIDE 0.9% FLUSH 10 ML FLUSH IV FLUSH SCH (09:00)
--- NOTE | 2016-09-07 10:27 | HHI.PR ---
Subjective Remarks This is a pleasant 21 y/o Female with Seizures, as per notes she had a seizure in am yesterday, medicined changed from IV to BY mouth by Neurology specialist, as per Specialist okay to discharge home on her actual medicines if no further seizure disorder and non confused, the patient was seen non confused she had new seizure as per her nurse Miss Hernandez also she wants to talk with Neurology specialist again, will try to get Neurology for follow up while in house, she continue having seizures. Objective Vital Signs Date Time Temp Pulse Resp B/P Pulse Ox O2 Delivery O2 Flow Rate FiO2 09/07/16 08:00 98.2 93 18 110/64 97 09/07/16 04:20 97.3 79 16 91/52 100 09/07/16 04:00 Nasal Cannula 2.00 09/07/16 00:00 Nasal Cannula 2.00 09/06/16 23:57 90 20 94/56 99 09/06/16 23:15 97.7 108 18 79/44 96 09/06/16 22:21 131 09/06/16 22:00 Room Air 09/06/16 20:00 72 09/06/16 19:40 97.8 76 16 97/51 97 09/06/16 16:00 98.2 67 18 91/64 98 09/06/16 12:00 98.1 79 18 106/73 97 I/O 09/06/16 09/06/16 09/06/16 09/07/16 09/07/16 09/07/16 07:00 15:00 23:00 07:00 15:00 23:00 Intake Total 240 ml 240 ml 360 ml 128 ml 300 ml Output Total 400 ml 400 ml Balance -160 ml -160 ml 360 ml 128 ml 300 ml Intake Oral 240 ml 240 ml 360 ml 0 ml 300 ml IV Total 128 ml Output Urine Total 400 ml 400 ml # Voids 1 1 5 # Bowel Movements 0 0 0 0 Imaging Last Impressions Head CT 08/29/16 0000 Signed Impressions: Service Date/Time: Monday, August 29, 2016 17:39 - CONCLUSION: Negative noncontrast CT brain. Vamsi Jaime MD Cervical Spine CT [id number]/[id number] Signed Impressions: Service Date/Time: Saturday, August 27, 2016 21:43 - CONCLUSION: Normal examination for a patient of this age. Richy Williamson MD Procedures EEG Other Results Laboratory Tests Test 09/07/16 03:14 Troponin I LESS THAN 0.02 NG/ML Objective Remarks GENERAL: Pt encountered sit up in bed, oxygen mask in place, SKIN: Warm and dry. Tattoo noted on left wrist and above left breast. HEAD: Normocephalic. EYES: Pt with glasses in place. No drainage. NECK: Supple, trachea midline. No lymphadenopathy. Patent airway. CARDIOVASCULAR: Regular rate and rhythm without murmurs, gallops, or rubs. RESPIRATORY: Breath sounds equal bilaterally; shallow breathing noted. No accessory muscle use. GASTROINTESTINAL: Abdomen soft, non-tender, nondistended. MUSCULOSKELETAL: No cyanosis, or edema. Cast noted on right forearm. PSYCHIATRIC: Pt awake, not responding to questions or tracking people in the room. Medications and IVs Current Medications Medications (Trade) Dose Ordered Sig/Dorothy Route Start Time Stop Time Status Last Admin Miscellaneous Information 1 [id number] XX 08/27/16 23:00 08/27/16 23:00 (Chlorhexidine 2% Cloth) Taper DAILY@04 TOP 08/28/16 04:00 08/24/17 03:59 08/31/16 21:22 Chlorhexidine Gluconate 3 pack 3 pack UNSCH PRN TOP 08/27/16 23:00 (NS 1000 ml Inj) 1,000 ml @ 100 mls/hr Q10H IV 08/27/16 22:51 09/06/16 22:01 (NS Flush) 2 ml UNSCH PRN IV FLUSH 08/27/16 23:00 08/29/16 09:45 (NS Flush) 2 ml BID IV FLUSH 08/28/16 09:00 09/07/16 09:00 (Velma-Colace) 1 tab BID PO 08/28/16 09:00 09/07/16 08:58 (Milk Of Magnesia Liq) 30 ml Q12H PRN PO 08/27/16 23:00 (Senokot) 17.2 mg Q12H PRN PO 08/27/16 23:00 (Dulcolax Supp) 10 mg DAILY PRN RECTAL 08/27/16 23:00 (Lactulose Liq) 30 ml DAILY PRN PO 08/27/16 23:00 (Ativan Inj) 1 mg Q5M PRN IV PUSH 08/27/16 23:00 09/06/16 22:45 Patient Own Medication PT OWN MED: BREO LOY... DAILY INH 08/29/16 09:00 Hold (Tenormin) 25 mg DAILY PO 08/29/16 09:00 09/06/16 09:07 (Deltasone) 20 mg BID PO 08/28/16 21:00 09/03/16 20:40 (Benadryl) 25 mg Q6H PRN PO 08/28/16 13:30 (KlonoPIN) 0.5 mg TID PO 08/28/16 19:00 09/07/16 08:58 (Compazine Inj) 5 mg Q6H PRN IV PUSH 08/29/16 15:00 09/04/16 08:06 Non-Formulary Medication ONFI (CLOBAZAM) 20 MG... BID PO 08/30/16 14:30 09/07/16 08:59 (Topamax) 100 mg TID PO 08/30/16 18:00 09/04/16 17:49 (Vimpat) 400 mg BID PO 09/01/16 22:00 09/07/16 08:56 A/P Assessment and Plan 21-year-old female with a PMH of Seizure Disorder admitted for breakthrough seizures. Acute status epilepticus -Resolved Seizure disorder -Neurology following -Lacosamide IV 200mg Q6hrs. -Discontinued Phenobarbital -When necessary IV Ativan for seizure activity -Had new Seizure yesterday night. -Patient has refused transfer to [place] for continuous EEG monitoring -PT to address ambulation issues -Neurology has changed medication from IV to PO. and recommended discharge if no further Seizures in 24 hours. had seizure yesterday night, patient wants to talk with Neurology specialist today. Adjustment disorder with mixed disturbance of emotions and conduct. History of Anaphylaxis -Use epinephrine of anaphylaxis occurs. -Avoid pumpkin seeds as this is her trigger in the past DVT prophylaxis SCDs Discharge Planning okay to discharge from Neurology specialist of no seizures in 24 hours and non confused, she had seizures yesterday night again, patient wants to talk with Neurology specialist. John Starr MD Sep 07, 2016 10:27
[2016-09-07] MEDS ORDERED: CLON.5 PO (11:43)
[2016-09-07] MEDS ORDERED: LACO100 PO (11:43)
[2016-09-07] MEDS ORDERED: ATEN25TA PO (11:43)
--- NOTE | 2016-09-07 11:48 | HHI.DS ---
Discharge Summary Admission Date Aug 27, 2016 at 22:51 Discharge Date: Sep 07, 2016 Admitting Diagnosis Breakthrough Seizure (1) Seizure disorder ICD Code: G40.909 Diagnosis: Principal (2) Status epilepticus ICD Code: G40.901 Diagnosis: Principal (3) Hypokalemia ICD Code: E87.6 Diagnosis: Principal (4) Anaphylaxis ICD Code: T78.2XXA Diagnosis: Principal Procedures EEG (09/03/16). Brief History - From Admission This is a 21-year-old female with a PMH of Seizure Disorder and h/o Anaphylaxis for which she carries EpiPen who was brought to the ER EMS secondary to witnessed seizure activity. [place] acute onset of seizure activity w/generalized tonic-clonic movements. Upon arrival, patient noted to have ongoing seizure activity for approximately 2 hours while in ER, s/p Ativan 4mg IV and Vimpat 150mg IV x1 dose. Currently seizure free however significant post-ictal state. Of note, pt presented to ER on 08/26/16 for apparent allergic reaction after eating pumpkin seeds, used her EpiPen, s/p eval in ER w/ no further progression of symptoms, d/c'd home w/ Prednisone 20mg bid x3 days, Benadryl and EpiPen, unclear if taking medications. Pt unable to provide any history in light of postictal state. CT Head normal. CT C-spine also normal. CXR with no acute findings. Labs essentially unremarkable except for K+ 3.0 s/p replacement[address] Dr. Zamarripa consulted by ER physician, recommended Vimpat Significant Findings Laboratory Tests Test 09/07/16 03:14 Troponin I LESS THAN 0.02 NG/ML (0.02-0.05) Imaging Last Impressions Head CT 08/29/16 0000 Signed Impressions: Service Date/Time: Monday, August 29, 2016 17:39 - CONCLUSION: Negative noncontrast CT brain. Vamsi Jaime MD Cervical Spine CT 08/27/16 2108 Signed Impressions: Service Date/Time: [place], August 27, 2016 21:43 - CONCLUSION: Normal examination for a patient of this age. Richy Williamson MD PE at Discharge GENERAL: Alert and oriented, no distress. SKIN: Warm and dry. HEAD: Normocephalic. EYES: Pt with glasses in place. No drainage. NECK: Supple, trachea midline. No lymphadenopathy. Patent airway. CARDIOVASCULAR: Regular rate and rhythm without murmurs, gallops, or rubs. RESPIRATORY: Breath sounds equal bilaterally; shallow breathing noted. No accessory muscle use. GASTROINTESTINAL: Abdomen soft, non-tender, nondistended. MUSCULOSKELETAL: No cyanosis, or edema. Cast noted on right forearm. PSYCHIATRIC: alert and oriented x 3 Hospital Course This is a pleasant 21 y/o Female with Seizures, as per notes she had a seizure in am yesterday, medicined changed from IV to BY mouth by Neurology specialist, as per Specialist okay to discharge home on her actual medicines if no further seizure disorder and non confused, the patient was seen non confused she had new seizure as per her nurse Miss Hernandez also she wants to talk with Neurology specialist again, will try to get Neurology for follow up while in house, she continue having seizures. Assessment and Plan 21-year-old female with a PMH of Seizure Disorder admitted for breakthrough seizures. Acute status epilepticus -Resolved Seizure disorder -Neurology following -Lacosamide IV 200mg Q6hrs. -Discontinued Phenobarbital -When necessary IV Ativan for seizure activity -Had new Seizure yesterday night. -Patient has refused transfer to [place] for continuous EEG monitoring -PT to address ambulation issues -Neurology has changed medication from IV to PO. and recommended discharge if no further Seizures in 24 hours. had seizure yesterday night, patient wants to talk with Neurology specialist today. Adjustment disorder with mixed disturbance of emotions and conduct. History of Anaphylaxis -Use epinephrine of anaphylaxis occurs. -Avoid pumpkin seeds as this is her trigger in the past DVT prophylaxis SCDs Discharge Planning okay to discharge from Neurology specialist of no seizures in 24 hours and non confused, she had seizure yesterday discussed with Neurology specialist and recommended for discharge and follow as outpatient Do not drive for the next six months or until cleared by Neurology specialist. Pt Condition on Discharge: Good Discharge Disposition: Discharge Home Discharge Time: > 30 minutes Discharge Instructions DIET: Follow Instructions for: Heart Healthy Diet Speech Therapy-Diet Recommends: Mechanical Soft Activities you can perform: Regular-No Restrictions Other Activity Instructions: Do not drive a car until cleared by Neurology specialist John Starr MD Sep 07, 2016 11:47
[2016-09-07 12:00] VITALS: BP 107/57; PULSE 83; RESP 18; TEMP 97.4; O2SAT 100
[2016-09-07] MEDS ORDERED: ONFI20TA PO (13:39)
[2016-09-07 16:00] VITALS: BP 98/54; PULSE 70; RESP 18; TEMP 98.3; O2SAT 100
--- NOTE | 2016-09-07 16:45 | EKG ---
Date Performed: 09/07/2016 Time Performed: 02:27:26 PTAGE: 21 years EKG: Sinus rhythm . Since previous tracing, no significant change noted Normal ECG PREVIOUS TRACING : 08/29/2016 15.19 DOCTOR: Fara Patrick Interpretating Date/Time 09/07/2016 17:21:36
--- NOTE | 2016-09-07 16:45 | EKG ---
Date Performed: 09/07/2016 Time Performed: 08:13:15 PTAGE: 21 years EKG: Sinus rhythm Since previous tracing, no significant change noted NORMAL ECG PREVIOUS TRACING : 09/07/2016 02.27 DOCTOR: Fara Patrick Interpretating Date/Time 09/07/2016 17:22:04
[2016-09-08] MEDS ORDERED: POTA-163 PO (21:14)
[2016-09-08] MEDS ORDERED: PRED20 PO (22:25)
== END 2016-09-07 17:30 | disposition home or self-care (01) | DRG 101 ==
LOC: NEPE 17:53 → NEDA 22:49 → OBSVTOIN 22:51 → HIMN 08-28 01:40 → N04A 09-01 16:59 → N04B 09-02 22:09
PROVIDERS: ADMIT Internal Medicine; ATTEND Internal Medicine
DX: G40.211 Localization-related (focal) (partial) symptomatic epilepsy and epileptic syndromes with complex partial seizures, intractable, with status epilepticus (principal); E87.6 Hypokalemia; J45.909 Unspecified asthma, uncomplicated; F43.25 Adjustment disorder with mixed disturbance of emotions and conduct; F41.9 Anxiety disorder, unspecified; G47.00 Insomnia, unspecified
CPT/HCPCS: 70450; 72125; 76937; 80048; 80053; 80184; 80307; 81001; 82550; 82948; 84484; 85025; 87641; 93005; 95819; 96374; 96375; 96376; C9254; J0780; J2060; J2560; J3480; J7030; J7512

== ENCOUNTER 2016-09-08 20:14 | Emergency (ER) | payer OTHER ==
[~2016-09-08 20:14] MED LIST changes: +CLON.5 PO; -EPIP0.3I IM; +LACO100 PO; -ONFI10TA PO; +ONFI20TA PO; -PRED-503 PO
[2016-09-08 20:18] VITALS: BP 127/70; PULSE 128; RESP 16; TEMP 98.7; O2SAT 99
[2016-09-08] MEDS ORDERED: SODIUM CHLOR 0.9% 1000 ML INJ 1,000 ML IV SCH (21:12)
[2016-09-08] MEDS ORDERED: POTA-163 PO (21:14)
[2016-09-08] MEDS ORDERED: FAMOTIDINE 20 MG/2 ML VIAL IV PUSH ONE (21:15)
[2016-09-08] MEDS ORDERED: methylPREDNISolone SOD SUCC 125 MG/2 ML VIAL IVP ONE (21:15)
[2016-09-08] MEDS ORDERED: SODIUM CHLORIDE 0.9% FLUSH 10 ML FLUSH IV FLUSH PRN (21:15)
[2016-09-08] MEDS ORDERED: diphenhydrAMINE HCL 50 MG/ML VIAL IVP ONE (21:15)
[2016-09-08 21:16] VITALS: O2SAT 98
[2016-09-08 21:17] VITALS: BP 102/58; PULSE 83; RESP 18; O2SAT 100
--- NOTE | 2016-09-08 21:20 | PD ---
HPI Chief Complaint: Allergic/Adverse Reaction Time Seen by Provider: 21:00 Travel History International Travel<30 days: No Contact w/Intl Traveler<30days: No Traveled to known affect area: No History of Present Illness HPI The patient was seen and examined in the presence of the nurse. This patient was just discharged from the hospital yesterday for seizure problems. She did not start any new medications. She comes in today complaining of any it she rash in her right shoulder area. She has developed hives in that region. She does have history of allergy problems and does keep an EpiPen handy. She did not need to use it. No shortness of breath or swelling of lips or tongue. Duration 1 hour. Symptoms severity is moderate. No alleviating factors. PFSH Past Medical History Asthma: Yes Anxiety: Yes Cardiovascular Problems: Yes (POTS AND LONG QT) Diminished Hearing: No Hypertension: Yes Neurologic: Yes (seizures) Respiratory: Yes (ASTHMA) Tetanus Vaccination: Unknown Influenza Vaccination: No ?: Not Social History Alcohol Use: No Tobacco Use: No Substance Use: No Allergies-Medications (Allergen,Severity, Reaction): Coded Allergies: Dilantin (Verified Allergy, Severe, Seizures, 09/08/16) Keppra (Verified Allergy, Severe, Seizures, 09/08/16) PEANUTS (Verified Allergy, Severe, ANAPHYLAXIS, 09/08/16) Penicillin (Verified Allergy, Severe, Anaphylaxis, 09/08/16) Pineapple (Verified Allergy, Severe, ANAPHYLAXIS, 09/08/16) Zofran (Verified Allergy, Severe, Hives, 09/08/16) Gluten (Verified Allergy, Intermediate, 09/08/16) Dairy (Verified Allergy, Mild, 09/08/16) Reported Meds & Prescriptions Reported Meds & Active Scripts Active Onfi (Clobazam) 20 Mg Tab 20 Mg PO BID Klonopin (Clonazepam) 0.5 Mg Tab 0.5 Mg PO TID do not take this medicine if you will drive a car or use a machine, only use it when resting at home. Diphenhydramine (Diphenhydramine HCl) 25 Mg Cap 25 Mg PO Q6H PRN 3 Days Reported Potassium Chloride ER (Potassium Chloride) 20 Meq Tab 20 Meq PO DAILY Epipen (Epinephrine) 0.3 Mg/0.3 Ml Auto.injct Claritin (Loratadine) 10 Mg Tab.rapdis Prilosec (Omeprazole Magnesium) 20 Mg Tab Iron (Ferrous Sulfate) 325 Mg Capsule.er Breo Ellipta Inh (Fluticasone/Vilanterol) 200-25 Mcg/Act Inh 1 Puff INH DAILY Use daily at the same time. Proair Hfa 8.5 GM Inh (Albuterol Sulfate) 90 Mcg/Act Aer 1 Puff INH Q4H PRN 108 mcg/actuation Atenolol 25 Mg Tab 25 Mg PO BID Midazolam 10 mg/2 ml Syringe (Midazolam HCl/Pf) 10 Mg/2 Ml Syringe Lorazepam 2 Mg Tab 2 Mg PO HS PRN Vimpat (Lacosamide) 200 Mg Tab 400 Mg PO BID Review of Systems General / Constitutional: No: Fever Eyes: No: Visual changes HENT: No: Headaches Cardiovascular: No: Chest Pain or Discomfort Respiratory: No: Shortness of Breath Gastrointestinal: No: Abdominal Pain Genitourinary: No: Dysuria Musculoskeletal: No: Pain Skin: Positive Rash, Positive Itching, Positive Hives Neurologic: No: Weakness Psychiatric: No: Depression Endocrine: No: Polydipsia Hematologic/Lymphatic: No: Easy Bruising Physical Exam Narrative GENERAL: Well-nourished, well-developed patient in no apparent distress. SKIN: Focused skin assessment reveals urticarial lesions in the right upper arm and right trapezius area. Skin is Warm and dry. No vesicles. HEAD: Atraumatic. Normocephalic. EYES: Pupils equal and round. No scleral icterus. No injection or drainage. ENT: No nasal bleeding or discharge. Mucous membranes pink and moist. Normal uvula and lips and tongue NECK: Trachea midline. No JVD. CARDIOVASCULAR: Regular rate and rhythm. No murmur appreciated. RESPIRATORY: No accessory muscle use. Clear to auscultation. Breath sounds equal bilaterally. GASTROINTESTINAL: Abdomen soft, non-tender, nondistended. Hepatic and splenic margins not palpable. MUSCULOSKELETAL: No obvious deformities. No clubbing. No cyanosis. No edema. NEUROLOGICAL: Awake and alert. No obvious cranial nerve deficits. Motor grossly within normal limits. Normal speech. PSYCHIATRIC: Appropriate mood and affect; insight and judgment normal. Data Data Last Documented VS Vital Signs Date Time Temp Pulse Resp B/P Pulse Ox O2 Delivery O2 Flow Rate FiO2 09/08/16 21:17 83 18 102/58 100 Room Air 09/08/16 20:18 98.7 Orders Basic Metabolic Panel (Bmp) (09/08/16 21:12) Complete Blood Count With Diff (09/08/16 21:12) Ecg Monitoring (09/08/16 21:12) Iv Access Insert/Monitor (09/08/16 21:12) Oximetry (09/08/16 21:12) Diphenhydramine Inj (Benadryl Inj) (09/08/16 21:15) Methylprednisolone So Succ Inj (Solumedr (09/08/16 21:15) Famotidine Inj (Pepcid Inj) (09/08/16 21:15) Sodium Chlor 0.9% 1000 Ml Inj (Ns 1000 M (09/08/16 21:12) Sodium Chloride 0.9% Flush (Ns Flush) (09/08/16 21:15) Potassium Bicarb Eff (Effer-K Eff) (09/08/16 22:30) Labs Laboratory Tests Test 09/08/16 21:20 White Blood Count 13.2 TH/MM3 Red Blood Count 4.75 MIL/MM3 Hemoglobin 13.0 GM/DL Hematocrit 39.4 % Mean Corpuscular Volume 83.0 FL Mean Corpuscular Hemoglobin 27.4 PG Mean Corpuscular Hemoglobin 33.0 % Concent Red Cell Distribution Width 13.9 % Platelet Count 248 TH/MM3 Mean Platelet Volume 10.1 FL Neutrophils (%) (Auto) 76.3 % Lymphocytes (%) (Auto) 14.7 % Monocytes (%) (Auto) 6.6 % Eosinophils (%) (Auto) 1.8 % Basophils (%) (Auto) 0.6 % Neutrophils # (Auto) 10.1 TH/MM3 Lymphocytes # (Auto) 1.9 TH/MM3 Monocytes # (Auto) 0.9 TH/MM3 Eosinophils # (Auto) 0.2 TH/MM3 Basophils # (Auto) 0.1 TH/MM3 CBC Comment DIFF FINAL Differential Comment Sodium Level 141 MEQ/L Potassium Level 3.2 MEQ/L Chloride Level 105 MEQ/L Carbon Dioxide Level 25.7 MEQ/L Anion Gap 10 MEQ/L Blood Urea Nitrogen 10 MG/DL Creatinine 0.83 MG/DL Estimat Glomerular Filtration 86 ML/MIN Rate Random Glucose 103 MG/DL Calcium Level 9.0 MG/DL MDM Medical Decision Making Medical Screen Exam Complete: Yes Emergency Medical Condition: Yes Medical Record Reviewed: Yes Differential Diagnosis Allergic reaction, anaphylaxis, Villanueva-Parker syndrome Narrative Course I have reviewed the patient's electronic medical record. Reviewed her discharge summary from yesterday IV placed I gave her IV Benadryl and IV Pepcid and IV Solu-Medrol I gave her 1 L normal saline IV CBC is normal Metabolic profile is normal except for mild hypokalemia which is replaced orally Presentation is consistent with an allergic reaction but at this point is limited to skin and a localized area so I don't see an indication for epinephrine at this time. Will reassess her frequently. On her third reassessment she does look improved. Observed her for 2 hours and there has been no progression of reaction. Hives have diminished somewhat I gave her 3 days of prednisone and she will use Benadryl as needed Diagnosis Primary Impression: Allergic reaction Qualified Code: T78.40XA - Allergic reaction, initial encounter Additional Impression: Hypokalemia Additional Instructions: The patient was advised to follow up with their physician and return if they worsen. Take 3 days of prednisone as prescribed Use Benadryl every 6 hours as needed Watch for drowsiness of Benadryl Med/Other Pt SpecificInfo: Prescription(s) given Scripts Prednisone 20 Mg Tab60 Mg PO DAILY 3 Days Ref 0 Prov:Jose Lee MD 09/08/16 Disposition: 01 DISCHARGE HOME Condition: Stable Jose Lee MD Sep 08, 2016 21:20
[2016-09-08 21:41] LABS: AUTOMATED NEUTROPHIL # 10.1 TH/MM3 (1.8-7.7); BASOPHIL # 0.1 TH/MM3 (0-0.2); BASOPHIL % 0.6 % (0.0-2.0); EOSINOPHIL # 0.2 TH/MM3 (0-0.4); EOSINOPHIL % 1.8 % (0.0-4.0); HEMATOCRIT 39.4 % (35.0-46.0); HEMO FLAGS DIFF FINAL; LYMPH % 14.7 % (9.0-44.0); LYMPHOCYTE # 1.9 TH/MM3 (1.0-4.8); MEAN CORPUSCULAR HEMOGLOBIN 27.4 PG (27.0-34.0); MONO % 6.6 % (0.0-8.0); NEUT % 76.3 % (16.0-70.0); PLATELET COUNT 248 TH/MM3 (150-450); RED BLOOD COUNT 4.75 MIL/MM3 (4.00-5.30); RED CELL DISTRIBUTION WIDTH 13.9 % (11.6-17.2); WHITE BLOOD COUNT 13.2 TH/MM3 (4.0-11.0)
[2016-09-08 22:10] LABS: BICARBONATE 25.7 MEQ/L (21.0-32.0)
[2016-09-08 22:17] LABS: POTASSIUM 3.2 MEQ/L (3.5-5.1)
[2016-09-08] MEDS ORDERED: PRED20 PO (22:25)
[2016-09-08] MEDS ORDERED: POTASSIUM BICARBONATE 25 MEQ EFFERVESCENT TAB PO ONE (22:30)
== END 2016-09-08 22:37 | disposition home or self-care (01) ==
LOC: NEPC 20:14
DX: T78.40XA Allergy, unspecified, initial encounter (principal); R21 Rash and other nonspecific skin eruption; E87.6 Hypokalemia; R56.9 Unspecified convulsions; L50.9 Urticaria, unspecified; I10 Essential (primary) hypertension; J45.909 Unspecified asthma, uncomplicated; F41.9 Anxiety disorder, unspecified; Z79.899 Other long term (current) drug therapy
CPT/HCPCS: 80048; 85025; 96361; 96374; 96375; 99284; J1200; J2930; J7030

== ENCOUNTER 2016-09-09 06:34 | Emergency (ER) | payer OTHER ==
[~2016-09-09] VITALS: Ht 165.1 cm; Wt 50.0 kg
[~2016-09-09 06:34] MED LIST changes: -CLON0.5T PO; -LACO100 PO; +POTA-163 PO; -POTA-255; +PRED20 PO
[2016-09-09 06:38] VITALS: BP 91/53; PULSE 120; RESP 16; TEMP 98.1; O2SAT 100
[2016-09-09] MEDS ORDERED: SODIUM CHLOR 0.9% 1000 ML INJ 1,000 ML IV ONE (06:45)
--- NOTE | 2016-09-09 06:47 | PD ---
HPI Chief Complaint: Seizure Time Seen by Provider: 06:36 Travel History International Travel<30 days: No Contact w/Intl Traveler<30days: No Traveled to known affect area: No History of Present Illness HPI The patient was seen and examined in the presence of the nurse. Patient was seen here last night for urticaria. She also has history of seizure disorder. She had not complained of seizure issues last night. She says she went home and took her seizure medicine and then went to bed. She has a very vague history that she woke up this morning and thought that she had had a seizure. Someone at her house called 911 and she has no idea who. She can't provide any useful details. No incontinence or tongue injury. She reports compliance with her seizure medications. Denies any illicit drug use. Symptoms severity was mild to moderate. No alleviating factors. Duration one day PFSH Past Medical History Asthma: Yes Anxiety: Yes Cardiovascular Problems: Yes (POTS AND LONG QT) Diminished Hearing: No Hypertension: Yes Neurologic: Yes (seizures) Respiratory: Yes (ASTHMA) Tetanus Vaccination: Unknown Influenza Vaccination: No ?: Not LMP: 09/02/2016 Past Surgical History Surgical History: No Previous Surgery Social History Alcohol Use: No Tobacco Use: No Substance Use: No Allergies-Medications (Allergen,Severity, Reaction): Coded Allergies: Dilantin (Verified Allergy, Severe, Seizures, 09/09/16) Keppra (Verified Allergy, Severe, Seizures, 09/09/16) PEANUTS (Verified Allergy, Severe, ANAPHYLAXIS, 09/09/16) Penicillin (Verified Allergy, Severe, Anaphylaxis, 09/09/16) Pineapple (Verified Allergy, Severe, ANAPHYLAXIS, 09/09/16) Zofran (Verified Allergy, Severe, Hives, 09/09/16) Gluten (Verified Allergy, Intermediate, 09/09/16) Dairy (Verified Allergy, Mild, 09/09/16) Reported Meds & Prescriptions Reported Meds & Active Scripts Active Prednisone 20 Mg Tab 60 Mg PO DAILY 3 Days Onfi (Clobazam) 20 Mg Tab 20 Mg PO BID Klonopin (Clonazepam) 0.5 Mg Tab 0.5 Mg PO TID do not take this medicine if you will drive a car or use a machine, only use it when resting at home. Diphenhydramine (Diphenhydramine HCl) 25 Mg Cap 25 Mg PO Q6H PRN 3 Days Reported Potassium Chloride ER (Potassium Chloride) 20 Meq Tab 20 Meq PO DAILY Epipen (Epinephrine) 0.3 Mg/0.3 Ml Auto.injct Claritin (Loratadine) 10 Mg Tab.rapdis Prilosec (Omeprazole Magnesium) 20 Mg Tab Iron (Ferrous Sulfate) 325 Mg Capsule.er Breo Ellipta Inh (Fluticasone/Vilanterol) 200-25 Mcg/Act Inh 1 Puff INH DAILY Use daily at the same time. Proair Hfa 8.5 GM Inh (Albuterol Sulfate) 90 Mcg/Act Aer 1 Puff INH Q4H PRN 108 mcg/actuation Atenolol 25 Mg Tab 25 Mg PO BID Midazolam 10 mg/2 ml Syringe (Midazolam HCl/Pf) 10 Mg/2 Ml Syringe Lorazepam 2 Mg Tab 2 Mg PO HS PRN Vimpat (Lacosamide) 200 Mg Tab 400 Mg PO BID Review of Systems General / Constitutional: No: Fever Eyes: No: Visual changes HENT: No: Headaches Cardiovascular: No: Chest Pain or Discomfort Respiratory: No: Shortness of Breath Gastrointestinal: No: Abdominal Pain Genitourinary: No: Dysuria Musculoskeletal: No: Pain Skin: Positive Rash, Positive Itching, Positive Hives Neurologic: Positive: Seizures, No: Weakness Psychiatric: No: Depression Endocrine: No: Polydipsia Hematologic/Lymphatic: No: Easy Bruising Physical Exam Narrative GENERAL: Thin disheveled well-developed patient in no apparent distress. SKIN: Focused skin assessment reveals no rash and nodules. Skin is Warm and dry. HEAD: Atraumatic. Normocephalic. EYES: Pupils equal and round. No scleral icterus. No injection or drainage. ENT: No nasal bleeding or discharge. Mucous membranes pink and moist. No tongue injury NECK: Trachea midline. No JVD. CARDIOVASCULAR: Regular rate and rhythm. No murmur appreciated. Tachycardic 115 RESPIRATORY: No accessory muscle use. Clear to auscultation. Breath sounds equal bilaterally. GASTROINTESTINAL: Abdomen soft, non-tender, nondistended. Hepatic and splenic margins not palpable. MUSCULOSKELETAL: No obvious deformities. No clubbing. No cyanosis. No edema. Velcro splint on the right wrist NEUROLOGICAL: Awake and alert. No obvious cranial nerve deficits. Motor grossly within normal limits. Normal speech. PSYCHIATRIC: Appropriate mood and affect; insight and judgment questionable. Data Data Last Documented VS Vital Signs Date Time Temp Pulse Resp B/P Pulse Ox O2 Delivery O2 Flow Rate FiO2 09/09/16 06:38 98.1 120 16 91/53 100 Orders Ns 1000ml Wide Open 2000 Ml/Hr (09/09/16 06:45) Iv Access Insert/Monitor (09/09/16 06:43) MDM Medical Decision Making Medical Screen Exam Complete: Yes Emergency Medical Condition: Yes Medical Record Reviewed: Yes Differential Diagnosis Right seizure, epilepsy, anxiety Narrative Course I have reviewed the patient's electronic medical record. Reviewed her visit from yesterday evening including lab studies with mild hypokalemia but that was replaced orally IV placed I gave her 1 L normal saline IV She is neurologically intact sinus tachycardia Plan to observe her for an hour or 2. Case will be checked out to the 7 AM physician to assist with disposition. Jose Lee MD Sep 09, 2016 06:47
[2016-09-09] MEDS ORDERED: LACOSAMIDE INJ 50 MG in SODIUM CHLORIDE 0.9% INJ 100 ML IV ONE (07:15)
--- NOTE | 2016-09-09 07:18 | PD ---
Physical Exam Date Seen by Provider: Sep 09, 2016 Narrative GENERAL: SKIN: Warm and dry. HEAD: Atraumatic. Normocephalic. EYES: Pupils equal and round. No scleral icterus. No injection or drainage. ENT: No nasal bleeding or discharge. Mucous membranes pink and moist. NECK: Trachea midline. No JVD. CARDIOVASCULAR: Regular rate and rhythm. RESPIRATORY: No accessory muscle use. Clear to auscultation. Breath sounds equal bilaterally. GASTROINTESTINAL: Abdomen soft, non-tender, nondistended. Hepatic and splenic margins not palpable. MUSCULOSKELETAL: Extremities without clubbing, cyanosis, or edema. No obvious deformities. NEUROLOGICAL: Awake and alert. No obvious cranial nerve deficits. Motor grossly within normal limits. Five out of 5 muscle strength in the arms and legs. Normal speech. PSYCHIATRIC: Appropriate mood and affect; insight and judgment normal. Data Data Last Documented VS Vital Signs Date Time Temp Pulse Resp B/P Pulse Ox O2 Delivery O2 Flow Rate FiO2 09/09/16 06:38 98.1 120 16 91/53 100 Orders Sodium Chlor 0.9% 1000 Ml Inj (Ns 1000 M (09/09/16 06:45) Iv Access Insert/Monitor (09/09/16 06:43) Lacosamide Inj (Vimpat Inj) (09/09/16 07:15) MDM Medical Record Reviewed: Yes Supervised Visit with DIMAS: No Narrative Course WILL GIVE VIMPAT PARTIAL DOSE TO ENSURE PATIENT'S LEVELS ARE THERAPEUTIC, PT WILL BE D/C SINCE SHE HAS HAD AN HOUR LONG OBSERVATION WITHOUT SEIZURE. OF NOTE , PATIENT HAS HAD 2 CT HEAD, NEURO EVAL AND ADMISSION ON AUGUST 27 AND ...AND SEEN IN DEPT ON SEPTEMBER 08 AND ...PT STATES THAT SHE HAS TAKEN HER MEDICATIONS AND IS BEING COMPLIANT. HAS FOLLOWUP APPT WITH NEURO DR MORROW Diagnosis Primary Impression: Seizure disorder Patient Instructions: General Instructions, Recurrent Seizures in Adults (ED) Disposition: 01 DISCHARGE HOME Condition: Stable Shane Conley MD Sep 09, 2016 07:18
[2016-09-09 08:50] VITALS: BP 109/63; PULSE 109; RESP 16; O2SAT 97
[2016-09-09 10:00] VITALS: BP 111/63
== END 2016-09-09 10:07 | disposition home or self-care (01) ==
LOC: NEPC 06:34
DX: R56.9 Unspecified convulsions (principal); J45.909 Unspecified asthma, uncomplicated; I49.8 Other specified cardiac arrhythmias; I10 Essential (primary) hypertension; I45.81 Long QT syndrome
CPT/HCPCS: 96374; C9254; J7030; L3808

== ENCOUNTER 2016-09-11 06:30 | Emergency (ER) | payer OTHER ==
[~2016-09-11] VITALS: Ht 160 cm; Wt 50.0 kg
[2016-09-11 06:33] VITALS: BP 113/71; PULSE 64; RESP 16; TEMP 97.6; O2SAT 100
--- NOTE | 2016-09-11 07:29 | PD ---
HPI Chief Complaint: Allergic/Adverse Reaction Time Seen by Provider: 07:24 Travel History International Travel<30 days: No Contact w/Intl Traveler<30days: No Traveled to known affect area: No History of Present Illness HPI 21-year-old female presents to the emergency department with complaint of "hives " that has exacerbated again after she was seen a couple days ago for the same complaint. She said the rash decreased in severity after being seen the other day and has now worsened. She was given a prescription for prednisone which she has not filled or taken. Reports the rash is itchy. Denies airway edema, difficulty breathing. Denies fever, vomiting. Denies new exposures to medications, foods, detergents, lotions, soaps, perfumes, environmental exposures. Last took Benadryl at 6 AM this morning. Reports having an EpiPen for problems with allergic reactions, but does not specify for what. Has not had to use her EpiPen. Has no medical complaints. No other modifying factors or associated signs and symptoms. PFSH Past Medical History Asthma: Yes Anxiety: Yes Cardiovascular Problems: Yes (POTS AND LONG QT) Diminished Hearing: No Hypertension: Yes Neurologic: Yes (seizures) Respiratory: Yes (ASTHMA) Tetanus Vaccination: > 5 Years Influenza Vaccination: No ?: Not LMP: CURRENT Past Surgical History Surgical History: No Previous Surgery Other Surgery: No Social History Alcohol Use: No Tobacco Use: No Substance Use: No Allergies-Medications (Allergen,Severity, Reaction): Coded Allergies: Dilantin (Verified Allergy, Severe, Seizures, 09/11/16) Keppra (Verified Allergy, Severe, Seizures, 09/11/16) PEANUTS (Verified Allergy, Severe, ANAPHYLAXIS, 09/11/16) Penicillin (Verified Allergy, Severe, Anaphylaxis, 09/11/16) Pineapple (Verified Allergy, Severe, ANAPHYLAXIS, 09/11/16) Zofran (Verified Allergy, Severe, Hives, 09/11/16) Gluten (Verified Allergy, Intermediate, 09/11/16) Dairy (Verified Allergy, Mild, 09/11/16) Reported Meds & Prescriptions Reported Meds & Active Scripts Active Onfi (Clobazam) 20 Mg Tab 20 Mg PO BID Klonopin (Clonazepam) 0.5 Mg Tab 0.5 Mg PO TID do not take this medicine if you will drive a car or use a machine, only use it when resting at home. Diphenhydramine (Diphenhydramine HCl) 25 Mg Cap 25 Mg PO Q6H PRN 3 Days Reported Potassium Chloride ER (Potassium Chloride) 20 Meq Tab 20 Meq PO DAILY Epipen (Epinephrine) 0.3 Mg/0.3 Ml Auto.injct Claritin (Loratadine) 10 Mg Tab.rapdis Prilosec (Omeprazole Magnesium) 20 Mg Tab Iron (Ferrous Sulfate) 325 Mg Capsule.er Breo Ellipta Inh (Fluticasone/Vilanterol) 200-25 Mcg/Act Inh 1 Puff INH DAILY Use daily at the same time. Proair Hfa 8.5 GM Inh (Albuterol Sulfate) 90 Mcg/Act Aer 1 Puff INH Q4H PRN 108 mcg/actuation Atenolol 25 Mg Tab 25 Mg PO BID Midazolam 10 mg/2 ml Syringe (Midazolam HCl/Pf) 10 Mg/2 Ml Syringe Lorazepam 2 Mg Tab 2 Mg PO DAILY PRN Vimpat (Lacosamide) 200 Mg Tab 400 Mg PO BID Review of Systems Except as stated in HPI: all other systems reviewed are Neg Physical Exam Narrative GENERAL: Well-nourished, well-developed female patient, in no acute distress; afebrile, nontoxic-appearing SKIN: Warm and dry. Erythremic Disseminated bullous type rash noted to bilateral upper extremities, back, bilateral ankle areas; some areas appear excoriated. Patient reports rash to upper legs but says she would rather not remove her pants for examination. Rash to upper right trapezius area appears erythremic and maculopapular, and may be consistent with hives. All areas appear non-cellulitic. No vesicles noted. HEAD: Atraumatic. Normocephalic. EYES: Pupils equal and round. No scleral icterus. No injection or drainage. ENT: Mucosa pink and moist. Airway patent. EARS: Bilateral pinnae and external canals appear within normal limits. NECK: Trachea midline. No lymphadenopathy. CARDIOVASCULAR: Regular rate. RESPIRATORY: Clear to auscultation. Breath sounds equal bilaterally. No wheezes , rales, or rhonchi heard. No retractions or tachypnea. GASTROINTESTINAL: Flat. MUSCULOSKELETAL: No obvious deformities. No clubbing. No cyanosis. No edema. NEUROLOGICAL: Awake and alert. Oriented 3. No obvious cranial nerve deficits. Motor grossly within normal limits. Normal speech. Moves all extremities. 5/5 strength to all extremities. PSYCHIATRIC: Appropriate mood and affect; insight and judgment normal. Data Data Last Documented VS Vital Signs Date Time Temp Pulse Resp B/P Pulse Ox O2 Delivery O2 Flow Rate FiO2 09/11/16 07:14 Room Air 09/11/16 06:33 97.6 64 16 113/71 100 Orders Methylprednisolone So Succ Inj (Solumedr (09/11/16 07:30) Dexamethasone Inj (Decadron Inj) (09/11/16 08:15) Ranitidine Liq (Zantac Liq) (09/11/16 08:15) [facility] Medical Decision Making Medical Screen Exam Complete: Yes Emergency Medical Condition: Yes Medical Record Reviewed: Yes Differential Diagnosis Bedbugs, scabies, hives, contact dermatitis, nonspecific rash or skin interruption Narrative Course 21-year-old female with a nonspecific rash. Patient was seen on September 08 for allergic reaction and had labs drawn and was given Solu-Medrol and Benadryl. CBC and BMP were unremarkable at that time. The patient was given a prescription for prednisone which she has not filled or taken. She returns today with worsening of the rash. Patient is in no acute distress. The rash seems to be more consistent with possible insect bites. Patient is afebrile and nontoxic appearing. Solu-Medrol ordered. The patient became irritated and was demanding more care; she requested to see a medical doctor at this time. I spoke with Dr. Villarreal, my attending physician, and the patient will be moved to a medical bed for further treatment and evaluation. Diagnosis Primary Impression: Rash and nonspecific skin eruption Referrals: Time Recorder Primary Care Physician Patient Instructions: Acute Rash (ED), General Instructions Additional Instructions: Take oral steroids as prescribed [id number] topicals to reduce itch Benadryl as directed and as needed to reduce itch Follow-up with your primary care provider Follow-up with underwear finisher Return to the emergency department immediately with worsening of symptoms Med/Other Pt SpecificInfo: No Change to Meds Disposition: 01 DISCHARGE HOME Condition: Stable Kelly Aparicio Sep 11, 2016 07:29
[2016-09-11] MEDS ORDERED: methylPREDNISolone SOD SUCC 125 MG/2 ML VIAL IM ONE (07:30)
[2016-09-11] MEDS ORDERED: RANITIDINE HCL SYRUP 150 MG/10 ML UDC PO ONE (08:15)
[2016-09-11] MEDS ORDERED: DEXAMETHASONE SOD PHOS 20 MG/5 ML VIAL IM ONE (08:15)
--- NOTE | 2016-09-11 08:17 | PD ---
Data Data Last Documented VS Vital Signs Date Time Temp Pulse Resp B/P Pulse Ox O2 Delivery O2 Flow Rate FiO2 09/11/16 07:14 Room Air 09/11/16 06:33 97.6 64 16 113/71 100 Orders Methylprednisolone So Succ Inj (Solumedr (09/11/16 07:30) Dexamethasone Inj (Decadron Inj) (09/11/16 08:15) Ranitidine Liq (Zantac Liq) (09/11/16 08:15) MDM Medical Record Reviewed: Yes Supervised Visit with DIMAS: Yes Narrative Course I, Dr. Villarreal, have reviewed the advance practice practitioner's documentation and am in agreement, met with the patient face to face, made the diagnosis, and the medical decision making was done by me. *My assessment and Findings: Please refer to the DIMAS's documentation. The patient has had a rash since she left the hospital a few days ago following her 12 day admission for seizures. She was admitted to the hospital just 5 days after she moved to [facility] previously having lived in [place]. Before then she was in [place]. She fractured her right distal radius while in [place] and a soft splint was placed there. Evidently she came to [place] in order to follow with the [facility] for her seizure disorder. She notes difficulty establishing outpatient care here having just moved into the state about 20 days prior. Since dc from here following admission for seizures pt has been here now three times for a total body rash. No fever. No pain. Marked puriritus reported. Patient was diagnosed with a history of allergies and carries with her an EpiPen. She is even use the EpiPen intermittently at home. She has had this morning having stayed up the whole night with her friends she developed a rash leading to the ER evaluation. Benadryl home has not helped. She notes multiple inspectors have visited her home and have confirmed that there is no bedbug infestation or insect infestation that might cause the patient's rash is at least that they can identify. She also notes that none of the other inhabitants of her home and have a rash. Evidently a similar rash precipitated a diagnosis of peanut allergy. She has no respiratory complaint. She also states she can't afford to fill any prescription. We agreed to a injection of Decadron as the rash appears most consistent with allergic type reaction. Cellulitis is considered unlikely. Patient verbalized agreement and appreciation with our discussion and proposed plan. She asked that the nurse leave the room at the time of interview. Presentation is less consistent with scabies. Diagnosis Primary Impression: Rash and nonspecific skin eruption Additional Impression: Allergic reaction Qualified Code: T78.40XS - Allergic reaction, sequela Referrals: [facility] 1 day Chart Reader Primary Care Physician Patient Instructions: General Instructions, Acute Rash (ED) Additional Instruction: Take oral steroids as prescribed [id number] topicals to reduce itch Benadryl as directed and as needed to reduce itch Follow-up with your primary care provider Follow-up with information technology administrator Return to the emergency department immediately with worsening of symptoms Disposition: 01 DISCHARGE HOME Condition: Stable Barry Villarreal MD Sep 11, 2016 08:17
== END 2016-09-11 08:34 | disposition home or self-care (01) ==
LOC: NEPD 06:30 → NEPE 08:34
DX: R21 Rash and other nonspecific skin eruption (principal); T78.40XA Allergy, unspecified, initial encounter; G40.909 Epilepsy, unspecified, not intractable, without status epilepticus; J45.909 Unspecified asthma, uncomplicated; F41.9 Anxiety disorder, unspecified; I10 Essential (primary) hypertension; Z79.899 Other long term (current) drug therapy; Z88.0 Allergy status to penicillin; Z88.8 Allergy status to other drugs, medicaments and biological substances
CPT/HCPCS: 96372; 99284; J1100